=== PATIENT | female | born 1970 | race Caucasian/White ===

== ENCOUNTER → 2018-04-08 10:45 | Outpatient (CLI) | payer BC, SELFPAY ==
--- NOTE | 2018-04-08 10:54 | US_ITS ---
ULTRASOUND THYROID PROCEDURE: Multiple sagittal & transverse ultrasound images of the thyroid. HISTORY: Hypothyroidism difficulty swallowing on thyroid medications one year COMPARISON: ----- FINDINGS: Thyroid Gland appears normal in size and fairly homogeneous throughout. No remarkable nodules or mass. RIGHT LOBE: 3.3 cm length as 1.3 cm wide x 1.2 cm AP . LEFT LOBE: 3.5 cm length as 1.1 cm wide x 1.0 cm AP . ISTHMUS: Normal thickness measuring just over 3 mm no nodule IMPRESSION ----- thyroid gland appears normal in size With no nodules or masses evident
== END ==
PROVIDERS: PCP Nurse Practitioner; Visit Provider Nurse Practitioner
DX: E03.9 Hypothyroidism, unspecified (principal)
CPT/HCPCS: 76536

== ENCOUNTER → 2019-05-29 15:11 | Outpatient (CLI) | payer BC, SELFPAY ==
--- NOTE | 2019-05-29 15:19 | XR_ITS ---
PROCEDURE: XR THORACIC SPINE 3V CLINICAL INDICATION: THORACIC PAIN, COMPARISON: No exams were available for comparison FINDINGS: There is a mild upper thoracic curvature convex left, midthoracic curvature convex right, and mid to lower thoracic curvature convex left. There are degenerative changes in the thoracic spine. There is mild wedging of T5 age indeterminate. IMPRESSION: Degenerative changes with mild S-shaped scoliosis with mild wedging of T5 Dictated by: Aditya Engle MD 05/29/2019 18:45 Electronically signed by Aditya Engle MD in [place] 05/29/2019 18:45
--- NOTE | 2019-05-29 15:19 | XR_ITS ---
PROCEDURE: XR FOOT RT MIN 3V CLINICAL INDICATION: RT FOOT PAIN COMPARISON: None FINDINGS: No fracture or dislocation. No lytic or blastic change. There is normal mineralization. The joint spaces are well-preserved. No significant degenerative/arthritic changes. No erosive changes evident. Other findings:None. IMPRESSION: No acute findings. Dictated by: Aditya Engle MD 05/29/2019 18:43 Electronically signed by Aditya Engle MD in [place] 05/29/2019 18:43
== END ==
PROVIDERS: PCP Family Medicine; Visit Provider Family Medicine
DX: M54.6 Pain in thoracic spine (principal); M79.671 Pain in right foot
CPT/HCPCS: 72072; 73630

== ENCOUNTER → 2019-11-26 16:43 | Outpatient (CLI) | payer BC, SELFPAY ==
--- NOTE | 2019-11-26 16:49 | MM_ITS ---
PROCEDURE: MM DIG SC MAMM IMPLANT BI CAD Digital Breast Tomosynthesis Included CLINICAL INDICATION: SCREENING There is no personal or family history of breast cancer. The patient is currently on her 3rd set of breast implants. COMPARISON: DMSI DIGITAL MAMM-SCREEN IMPLANT from 06/21/2011 DMSI DIG MAMM-SCREEN IMPLANT from 11/06/2013 DMID DIG MAMM-IMPLANT DX from 04/27/2015 TECHNIQUE: Standard CC and MLO images and 3D Tomosynthesis was obtained. R2 CAD reviewed. FINDINGS: There are minimal fibroglandular densities in the [place] breast tissue around the implants, the [place] breast tissue otherwise composed primarily of fat. There is some slight crinkling and/or irregularity of the border of the implants probably due to scarring from previous implant pockets. There is no leakage of either implant. However there is apparent new solitary spherical lesion outer quadrant left breast best seen on the CC view with john images. This measures 6 mm in diameter. This has benign features and may represent a small fibroadenoma but recommend the patient return for ultrasound for additional evaluation. IMPRESSION: Fibrofatty parenchyma with stable intact implants both possible new developing lesion left breast outer quadrant BI-RAD Category: Additional imaging recommended FOLLOW-UP: IMM Immediate Follow-up Recommended (A letter has been sent to the patient regarding results of the study.) Dictated by: Dr. Junior Owens MD 11/27/2019 14:[address] Junior Owens MD in [place] 11/27/2019 14:25
== END ==
PROVIDERS: PCP Family Medicine; Visit Provider Nurse Practitioner
DX: Z12.31 Encounter for screening mammogram for malignant neoplasm of breast (principal); Z98.82 Breast implant status
CPT/HCPCS: 77063; 77067

== ENCOUNTER → 2020-03-08 15:22 | Outpatient (POV) | payer BC, SELFPAY | PROVIDERS: PCP Family Medicine; Visit Provider Physician Assistant | DX: Z00.00 Encounter for general adult medical examination without abnormal findings (principal) ==

== ENCOUNTER 2020-04-09 14:10 | Emergency (ER) | payer BC, SELFPAY ==
[2020-04-09 14:56] VITALS: BP 143/109; PULSE 95; RESP 20; TEMP 37.1; O2SAT 99; BMI 29.0
--- NOTE | 2020-04-09 15:07 | HMH.EDUTC ---
[facility] [place] Disposition Clinical Impression: Contact dermatitis Qualifiers: Contact dermatitis type: unspecified Contact dermatitis trigger: unspecified trigger Qualified Code(s): L25.9 - Unspecified contact dermatitis, unspecified cause Disposition: Home, Self-Care Condition on Discharge: Good Instructions: Contact Dermatitis, DI for Contact Dermatitis Additional Instructions: Try to avoid the offending substance. Start the oral steroids tomorrow, since you had the shot here today. Try the vistiril (hydroxzine) for your itching. It is very similar to benedryl, but it might work better. Don't take the vistiril and benedryl at the same time. Follow up with your regular doctor. GO TO THE ER FOR ANY WORSENING SYMPTOMS OR CONCERNS, ESPECIALLY IF YOU HAVE ANY SHORTNESS OF BREATH OR MOUTH SWELLING. Prescriptions: hydrOXYzine pamoate [Vistaril 25mg capsule] 25 mg PO Q6HP PRN #30 cap PRN Reason: Itching Transmission Status: Received by [id number] methylPREDNISolone [Medrol] 4 mg PO DIRECTED 6 Days #21 tab.[email or web address] Transmission Status: Received by [id number] Referrals: Duke Ramsey MD [Primary Care Provider] - Time of Disposition: 15:17 Medical Decision Making - Medical Records Medical records reviewed: No: I reviewed the patient's medical records. - Rony Inquiry Pt receiving controlled substance: No Vital Signs: 04/09/20 14:56 04/09/20 15:21 Temperature 98.8 F 98.8 F Temperature Source Oral Pulse Rate 95 H Pulse Rate [Right Brachial] 95 H Respiratory Rate 20 20 Blood Pressure 143/109 H Blood Pressure [Right Arm] 143/109 H Blood Pressure Mean [Right Arm] 120 Blood Pressure Source [Right Arm] Automatic Cuff Blood Pressure Position [Right Arm] Sitting 02 Sat by Pulse Oximetry 99 Oxygen Delivery Method Room Air Orders (Tests/Meds): ED MEDICATIONS Discontinued Medications Generic Name Dose Route Start Last Admin Trade Name Freq PRN Reason Stop Dose Admin Methylprednisolone Sodium Succinate 125 mg 04/09/20 15:00 04/09/20 15:05 Solu-Medrol 125mg/2ml Vial IM 04/09/20 15:01 125 mg ONCE ONE Administration [facility] [place] HPI - General Stated complaint: possible reaction Time Seen by Provider: 04/09/20 15:07 Mode of Arrival: Ambulatory Source of Information: Patient Limitations: No Limitations Description of Symptoms (Recalled from Triage Doc. by RN): PATIENT C/O ITCHING AND HIVES TO CHEST, ARMS, AND UPPER BACK THAT SHE BELIEVES IS A REACTION TO HER SUNSCREEN HEENT Symptoms (Recalled from RN notes): No Resp Symptoms (Recalled from RN notes): No Skin Symptoms (Recalled from RN notes): Yes MS Symptoms (Recalled from RN notes): No Functional Status (Recalled from RN notes): WNL - History of Present Illness Provider Complaint: She c/o itching of her skin and rash of her arms, shoulders, upper chest and upper back. She used a new sun screen right before these symptoms began (3 days ago) - Related Data Previous Rx's Medication Instructions Recorded hydrOXYzine pamoate [Vistaril 25mg 25 mg PO Q6HP PRN #30 cap 04/09/20 capsule] methylPREDNISolone [Medrol] 4 mg PO DIRECTED 6 Days #21 04/09/20 tab.ds.pk Allergies Allergy/AdvReac Type Severity Reaction Status Date / Time Sulfa (Sulfonamide Allergy Mild I-HIVES Verified 04/09/20 15:00 Antibiotics) [SULFA (SULFONAMIDE ANTIBIOTICS)] bacitracin Allergy Verified 04/09/20 15:00 [From Neosporin ([id number]-[id number])] neomycin Allergy Verified 04/09/20 15:00 [From Neosporin (ola-nzr-pwdch)] polymyxin B Allergy Verified 04/09/20 15:00 [From Neosporin ([id number])] - Worker's Comp Is this a Worker's Comp case?: No [facility] History - Hepatitis A Screen Drug use history?: No High risk sexual behaviors?: No History of sexually transmitted infection?: No Currently employed?: No Childcare worker?: No Do you have indoor plumbing?: Yes Do you have
[2020-04-09 15:21] VITALS: BP 143/109; PULSE 95; RESP 20; TEMP 37.1; O2SAT 99
== END 2020-04-09 15:26 | disposition home or self-care (01) ==
PROVIDERS: Emergency Provider Nurse Practitioner Family; PCP Family Medicine
DX: L25.9 Unspecified contact dermatitis, unspecified cause (principal); Z88.2 Allergy status to sulfonamides
CPT/HCPCS: 96372; 99201

== ENCOUNTER 2020-05-03 17:54 | Emergency (ER) | payer BC, SELFPAY ==
[2020-05-03 17:54] VITALS: BP 142/104; PULSE 84; RESP 14; TEMP 37; O2SAT 99; BMI 30.1
--- NOTE | 2020-05-03 17:58 | ECG_ITS ---
APPROVED REPORT Exam: Resting ECG HR:85 bpm ECG Measurements Heart Rate 85 AXES WV 122 P 16 QRSd 72 QRS 49 QT 348 T 2 QTc 414 <Conclusion> Normal sinus rhythm Low voltage QRS Nonspecific ST-T wave abnormalities Abnormal ECG Electronically signed by : Scott Valenzuela, 05/04/2020 14:01:21
--- NOTE | 2020-05-03 17:58 | XR_ITS ---
PROCEDURE: XR CHEST 2V CLINICAL HISTORY: CP Chest pain, hypertension COMPARISON: CR CXR1 CHEST-PORTABLE from 04/09/2017 CR XR THORACIC SPINE 3V from 05/29/2019 FINDINGS: The cardiomediastinal silhouette and pulmonary vascularity are within normal limits. The lungs are clear without infiltrates, suspicious nodules, or pleural effusions. COPD changes. There is mild wedging involving T4 vertebral body unchanged. Bilateral breast implants are noted. IMPRESSION: No acute finding. Mild chronic wedging of T4 Dictated b Aditya Engle MD 05/04/2020 06:10 Aditya Engle MD in [place] 05/04/2020 06:10
[2020-05-03 18:06] LABS: Basophils % 0.4 % (0.1-2.0); Eosinophils # 0.1 K/mm3 (0.0-0.4); Eosinophils % 2.1 % (0.1-12.0); Hematocrit 40.2 % (37.0-47.0); Hemoglobin 13.7 g/dL (12.2-16.2); Lymphocytes % 43.8 % (10-50); Mean Corpuscular HGB Conc 34.1 g/dL (31.8-35.4); Mean Corpuscular Hemoglobin 32.4 pg (27.0-31.2); Mean Corpuscular Volume 94.9 fl (81-99); Mean Platelet Volume 7.6 fl (7.4-10.4); Monocytes # 0.2 K/mm3 (0.1-1.0); Monocytes % 3.2 % (1.7-9.3); Neutrophils # 3.4 K/mm3 (1.8-7.8); Neutrophils % 50.4 % (37.0-80.0); Platelet Count 377 K/mm3 (142-424); Red Blood Count 4.24 M/mm3 (4.20-5.40); Red Cell Distribution Width 12.9 % (11.5-17.5); White Blood Count 6.7 K/mm3 (4.8-10.8)
[2020-05-03 18:13] LABS: Chloride 103 mmol/L (98-107); Potassium 4.2 mmoL/L (3.5-5.1); Sodium 139 mmol/L (136-145)
[2020-05-03 18:16] LABS: Blood Urea Nitrogen 16 mg/dl (7-17); Creatinine Clearance Estimated 82 mL/min (50-200); Estimated Glomerular Filt Rate 59 ml/min (>60); GFR (African American) 71 ML/MIN (>60)
[2020-05-03 18:17] LABS: Anion Gap 16.2 mEq/L (5-15); Calcium 10.2 mg/dl (8.4-10.2); Carbon Dioxide 24 mmol/L (22.0-30.0); Glucose 107 mg/dl (74-100)
[2020-05-03 18:32] LABS: Troponin I < 0.01 ng/ml (0.00-0.034)
--- NOTE | 2020-05-03 19:24 | HMH.EDGENADL ---
ED Disposition Clinical Impression: Atypical chest pain, Hypertension Disposition: Home, Self-Care Condition on Discharge: Good Instructions: DI for Atypical Chest Pain Prescriptions: Amlodipine Besylate [Amlodipine 10mg Tab] 10 mg PO DAILY #30 tab Transmission Status: Pending to [id number] Referrals: Duke Ramsey MD [Primary Care Provider] - - Critical Care Critical Care Time: No Attestation: On 05/03/20, the high probability of a clinically significant, sudden or life threatening deterioration of the following system(s) required my full and direct attention, intervention and personal management. The time I documented below is in addition to time spent performing reported procedures but includes the following listed in this critical care notation. Medical Decision Making - Medical Records Medical records reviewed: Yes: I reviewed the patient's medical records. - Rony Inquiry Pt receiving controlled substance: No Vital Signs: 05/03/20 17:54 Temperature 98.6 F Temperature Source Oral Pulse Rate [Right] 84 Respiratory Rate 14 Blood Pressure [Right Arm] 142/104 H Blood Pressure Mean [Right Arm] 116 02 Sat by Pulse Oximetry 99 - Lab Data Lab results reviewed: Yes: I reviewed the patient's lab results. Lab Results 05/03/20 17:55: WBC 6.7, RBC 4.24, Hgb 13.7, Hct 40.2, MCV 94.9, MCH 32.4 H, MCHC 34.1, RDW 12.9, Plt Count 377, MPV 7.6, Neut % (Auto) 50.4, Lymph % (Auto) 43.8, [place] % (Auto) 3.2, Eos % (Auto) 2.1, Baso % (Auto) 0.4, Neut # (Auto) 3.4, Lymph # (Auto) 3.0, [place] # (Auto) 0.2, Eos # (Auto) 0.1, Baso # (Auto) 0.0 05/03/20 17:55: Sodium 139, Potassium 4.2, Chloride 103, Carbon Dioxide 24, Anion Gap 16.2 H, BUN 16, Creatinine 1.00, Estimated Creat Clear 82, Estimated GFR 59, Est GFR ( Amer) 71, Glucose 107 H, Calcium 10.2, Troponin I < 0.01 Result diagrams: 05/03/20 17:55 05/03/20 17:55 Orders (Tests/Meds): ED MEDICATIONS Discontinued Medications Generic Name Dose Route Start Last Admin Trade Name Jose PRN Reason Stop Dose Admin Aspirin 324 mg 05/03/20 17:59 05/03/20 18:02 Aspirin 81mg Chewable Tablet PO 05/03/20 18:00 324 mg ONCE ONE Administration ORDERS Category Date Time Status XR chest 2V Stat Exams 05/03/20 17:58 Taken Troponin I Q3H Lab 05/03/20 21:00 Ordered Troponin I Q3H Lab 05/04/20 00:00 Ordered ECG Request by /Bucky Stat Y 05/03/20 17:58 Ordered - Radiology Data #1 Image(s): Chest Preliminary Findings: Normal/NAD - ECG Data Tracing #1 I reviewed this ECG and interpreted as documented below: Normal Sinus Rhythm: Yes - KAL Score for Non-Stemi Age of Patient: 50-59 years old Heart Rate: 50-69 bpm Systolic Blood Pressure: 140-159 mmHg Serum Creatinine: 0.40-0.79 mg/dl CHF [place] Class: I-No CHF Other Risk Factors: None Non-Stemi Risk Score: 72 Risk Stratification: 1-108 = Low Risk General Adult HPI - General Chief complaint: Chest Pain Stated complaint: chest pain Time Seen by Provider: 05/03/20 19:25 Mode of Arrival: Ambulatory Source of Information: Patient Limitations: No Limitations Description of Symptoms (Recalled from ER Triage Doc. 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 Denies cough, fever, soa, NVD, body aches, chills or contact with anyone with COVID19. 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 Patient states that she had some chest pressure that lasted for about a minute and a half earlier today and she has a slight headache and just feels unusual. She states that she is been out of her blood pressure medication amlodipine for about 8 days now. She takes losartan and amlodipine for hypertension. Presently here in the
[2020-05-03 19:26] VITALS: BP 141/108; PULSE 86; RESP 14; O2SAT 97
[2020-05-03 20:11] VITALS: BP 139/101; PULSE 76; RESP 16; TEMP 36.8; O2SAT 98
== END 2020-05-03 20:17 | disposition home or self-care (01) ==
PROVIDERS: Emergency Provider Family Medicine; PCP Family Medicine
DX: R07.89 Other chest pain (principal); I10 Essential (primary) hypertension; Z88.2 Allergy status to sulfonamides
CPT/HCPCS: 71046; 80048; 84484; 85025; 93005; 96374; 96375; 99283

== ENCOUNTER 2020-05-22 13:53 | Emergency (ER) | payer BC, SELFPAY ==
[2020-05-22 14:01] VITALS: BMI 30.1
--- NOTE | 2020-05-22 14:01 | XR_ITS ---
PROCEDURE: XR HAND RT MIN 3V CLINICAL INDICATION: INJURY Posttraumatic pain COMPARISON: No exams were available for comparison FINDINGS: There is a nondisplaced oblique fracture involving the mid shaft of the proximal phalanx of the 5th digit. No other significant anomalies are evident. The joint spaces are well-preserved. No significant degenerative/arthritic changes. No erosive changes evident. Other findings:None. IMPRESSION: Nondisplaced fracture proximal phalanx 5th digit Dictated by: Aditya Engle MD 05/22/2020 19:07 Aditya Engle MD in [place] 05/22/2020 19:07
[2020-05-22 14:04] VITALS: BP 137/107; PULSE 87; RESP 20; TEMP 36.7; O2SAT 98; BMI 30.1
--- NOTE | 2020-05-22 15:13 | HMH.EDUTC ---
[facility] [place] Clinical Impression: Finger fracture, right Qualifiers: Encounter type: initial encounter Finger: little finger Fracture type: closed Phalanx: proximal Fracture alignment: nondisplaced Qualified Code(s): S62.646A - Nondisplaced fracture of proximal phalanx of right little finger, initial encounter for closed fracture Disposition: Home, Self-Care Condition on Discharge: Good Instructions: DI for Finger Fracture Additional Instructions: Rest the extremity, Elevate the extremity as tolerated while you are resting. Take ibuprofen for pain. Follow up with orthopedics. You need to call their office in the morning. They may not see you tomorrow, but please go ahead and call them to get the appointment. Follow up with your regular doctor. GO TO THE ER FOR ANY WORSENING SYMPTOMS Referrals: Duke Ramsey MD [Primary Care Provider] - Alysia Bliss MD [Physician] - Forms: Work/School Release Time of Disposition: 15:16 Medical Decision Making - Medical Records Medical records reviewed: No: I reviewed the patient's medical records. - Rony Inquiry Pt receiving controlled substance: No Vital Signs: 05/22/20 14:04 05/22/20 15:30 Temperature 98.1 F 98.1 F Temperature Source Oral Pulse Rate 87 Pulse Rate [Left Brachial] 87 Respiratory Rate 20 20 Blood Pressure 137/107 H Blood Pressure [Left Arm] 137/107 H Blood Pressure Mean [Left Arm] 117 Blood Pressure Source [Left Arm] Automatic Cuff Blood Pressure Position [Left Arm] Sitting 02 Sat by Pulse Oximetry 98 Oxygen Delivery Method Room Air - Radiology Data #1 Image(s): Hand Image Reviewed: Yes I reviewed the patient's radiology image, Yes I have reviewed radiologist's interpretation PROCEDURE: XR HAND RT MIN 3V CLINICAL INDICATION: INJURY Posttraumatic pain COMPARISON: No exams were available for comparison FINDINGS: There is a nondisplaced oblique fracture involving the mid shaft of the proximal phalanx of the 5th digit. No other significant anomalies are evident. The joint spaces are well-preserved. No significant degenerative/arthritic changes. No erosive changes evident. Other findings:None. IMPRESSION: Nondisplaced fracture proximal phalanx 5th digit Dictated by: Aditya Engle MD 05/22/2020 19:07 Aditya Engle MD in [place] 05/22/2020 19:07 [facility] [place]PI - General Stated complaint: AO rt hand pinky finger injury Time Seen by Provider: 05/22/20 14:10 Mode of Arrival: Ambulatory Source of Information: Patient Limitations: No Limitations Description of Symptoms (Recalled from Triage Doc. by RN): PATIENT C/O RIGHT PINKY FINGER INJURY AFTER HER DOG HIT IT WHILE JUMPING OFF OF THE BED YESTERDAY. BRUISING AND SWELLING NOTED HEENT Symptoms (Recalled from RN notes): No Resp Symptoms (Recalled from RN notes): No Skin Symptoms (Recalled from RN notes): No MS Symptoms (Recalled from RN notes): Yes Functional Status (Recalled from RN notes): WNL - History of Present Illness Provider Complaint: She c/o right pinky finger pain. She states this started after her dog jumped down off the bed and somehow twisted her finger in the process. This happened yesterday. - Related Data Previous Rx's Medication Instructions Recorded hydrOXYzine pamoate [Vistaril 25mg 25 mg PO Q6HP PRN #30 cap 04/09/20 capsule] methylPREDNISolone [Medrol] 4 mg PO DIRECTED 6 Days #21 04/09/20 tab.ds.pk Amlodipine Besylate [Amlodipine 10 mg PO DAILY #30 tab 05/03/20 10mg Tab] Allergies Allergy/AdvReac Type Severity Reaction Status Date / Time Sulfa (Sulfonamide Allergy Mild I-HIVES Verified 04/09/20 15:00 Antibiotics) [SULFA (SULFONAMIDE ANTIBIOTICS)] bacitracin Allergy Verified 04/09/20 15:00 [From Neosporin ([id number])] neomycin Allergy Verified 04/09/20 15:00 [From Neosporin ([id number]-[id number])] polymyxin B Allergy Verified 04/09/20 15:00 [From Neosporin (n
[2020-05-22 15:30] VITALS: BP 137/107; PULSE 87; RESP 20; TEMP 36.7; O2SAT 98
== END 2020-05-22 15:35 | disposition home or self-care (01) ==
PROVIDERS: Emergency Provider Nurse Practitioner Family; PCP Family Medicine
DX: S62.646A Nondisplaced fracture of proximal phalanx of right little finger, initial encounter for closed fracture (principal); W54.1XXA Struck by dog, initial encounter; Y92.013 Bedroom of single-family (private) house as the place of occurrence of the external cause; Z88.2 Allergy status to sulfonamides
CPT/HCPCS: 73130; 99201

== ENCOUNTER → 2020-06-20 08:35 | Outpatient (CLI) | payer BC, SELFPAY ==
--- NOTE | 2020-06-20 08:41 | XR_ITS ---
PROCEDURE: XR HAND RT MIN 3V CLINICAL INDICATION: rt hand fx Follow-up fracture COMPARISON: CR XR HAND RT MIN 3V from 05/22/2020 FINDINGS: Nondisplaced fracture involves the mid shaft of the proximal phalanx of the 5th finger similar to the previous exam. Fracture line is still visible. The joint spaces are well-preserved. No significant degenerative/arthritic changes. No erosive changes evident. Other findings:None. IMPRESSION: No change nondisplaced fracture proximal phalanx 5th digit Dictated by: Aditya Engle MD 06/20/2020 17:46 Aditya Engle MD in [place] 06/20/2020 17:46
== END ==
PROVIDERS: PCP Family Medicine; Visit Provider Orthopaedic Surgery
DX: S62.646A Nondisplaced fracture of proximal phalanx of right little finger, initial encounter for closed fracture (principal)
CPT/HCPCS: 73130

== ENCOUNTER → 2020-07-04 14:23 | Outpatient (CLI) | payer BC, SELFPAY ==
--- NOTE | 2020-07-04 14:28 | XR_ITS ---
PROCEDURE: XR ANKLE LT MIN 3V CLINICAL INDICATION: ANKLE EDEMA COMPARISON: No exams were available for comparison FINDINGS: No fracture or dislocation. No lytic or blastic change. There is normal mineralization. The joint spaces are well-preserved. No significant degenerative/arthritic changes. No erosive changes evident. Other findings:None. IMPRESSION: No acute findings. Dictated by: Aditya Engle MD 07/04/2020 14:49 Aditya Engle MD in [place] 07/04/2020 14:49
== END ==
PROVIDERS: PCP Family Medicine; Visit Provider Nurse Practitioner
DX: R60.9 Edema, unspecified (principal); M25.572 Pain in left ankle and joints of left foot
CPT/HCPCS: 73610

== ENCOUNTER 2020-07-13 08:00 | Outpatient (RCR) | payer BC, SELFPAY ==
--- NOTE | 2020-06-24 14:43 | HMH.OTEV ---
PHYSICIAN CERTIFICATION: I certify the specified therapy services for Karen Castaneda are required, authorized, and reviewed every 30 days.
== END 2020-07-13 08:05 | disposition home or self-care (01) ==
LOC: OT 08:00
PROVIDERS: PCP Family Medicine; Visit Provider Orthopaedic Surgery
DX: S62.646D Nondisplaced fracture of proximal phalanx of right little finger, subsequent encounter for fracture with routine healing (principal)
CPT/HCPCS: 97110; 97140; 97165

== ENCOUNTER → 2020-07-13 13:44 | Outpatient (CLI) | payer BC, SELFPAY ==
--- NOTE | 2020-07-13 13:51 | XR_ITS ---
PROCEDURE: XR DEXA AXIAL SKELETON CLINICAL HISTORY: ANKLE EDEMA, POST MENOPAUSAL SYNDROME COMPARISON: No exams were available for comparison FINDINGS: The right hip BMD is 0.607 with a T-score of -2.2. The left hip BMD is 0.604 with a T-score of -2.2. The lumbar spine BMD is 0.797 with a T-score of -2.3. IMPRESSION: This patient is considered osteopenic according to the World Health Organization criteria. Bone density is between 10 and 25 percent below young normal. Fracture risk is moderate. Treatment is advised. Based on these results a follow-up exam is recommended in 2 year. Dictated by: Aditya Engle MD 07/16/2020 08:11 Aditya Engle MD in [place] 07/16/2020 08:11
--- NOTE | 2020-07-13 13:52 | MM_ITS ---
PROCEDURE: MM DX IMPLANT LT W/KENNETH Digital Breast Tomosynthesis Included CLINICAL INDICATION: ABN MAMM Small nodular density adjacent to the implant COMPARISON: MG DMSI DIG MAMM-SCREEN IMPLANT from 11/06/2013 MG DMID DIG MAMM-IMPLANT DX from 04/27/2015 MG MM DIG SC MAMM IMPLANT BI CAD from 11/26/2019 US US BREAST LT COMPLETE from 07/13/2020 TECHNIQUE: Standard CC and MLO images and 3D Tomosynthesis was obtained. R2 CAD reviewed. FINDINGS: The small nodular densities again seen abutting the implant best seen on the CC view. It measures 5.3 mm whereas previously was measured at 5.4 mm. It is unchanged in size and overall appearance from the previous exam. Ultrasound performed the same date showed a small slightly hyperechoic solid nodule and this almost surely represents a small fibroadenoma. The remainder the [place] breast tissue appears normal. There is no evidence of extravasation of the implant. IMPRESSION: Stable benign-appearing nodular density likely fibroadenoma, implant intact BI-RAD Category: 2 Benign Finding(s) FOLLOW-UP: 1YR 1 Year Follow-up (A letter has been sent to the patient regarding results of the study.) Dictated by: Dr. Junior Owens MD 07/20/2020 08:20 Dr. Junior Owens MD in [place] 07/20/2020 08:20
--- NOTE | 2020-07-13 14:08 | US_ITS ---
PROCEDURE: US BREAST LT COMPLETE CLINICAL INDICATION: LT BREAST LESION COMPARISON: No exams were available for comparison FINDINGS: There is a small slightly hyperechoic solid nodule 3 o'clock position near the nipple measuring 0.6 by 0.9 cm. On some of the images there is suggestion of a small surrounding border of decreased echogenicity. This either is a small fibroadenoma or possibly a small intramammary node. There are no suspicious findings. There are 3 normal appearing nodes seen in the axilla. IMPRESSION: Benign-appearing lesion, fibroadenoma versus small intramammary node and recommend the patient continue with yearly screening mammography. Dictated by: Dr. Junior Owens MD 07/20/2020 08:24 Dr. Junior Owens MD in [place] 07/20/2020 08:24
== END ==
PROVIDERS: PCP Family Medicine; Visit Provider Nurse Practitioner
DX: R92.8 Other abnormal and inconclusive findings on diagnostic imaging of breast (principal); Z78.0 Asymptomatic menopausal state
CPT/HCPCS: 76641; 77061; 77065; 77080; G0279

== ENCOUNTER → 2020-07-18 08:08 | Outpatient (CLI) | payer BC, SELFPAY ==
--- NOTE | 2020-07-18 08:11 | XR_ITS ---
PROCEDURE: XR HAND RT MIN 3V CLINICAL INDICATION: RT hand; out of brace Follow-up fracture COMPARISON: CR XR HAND RT MIN 3V from 05/22/2020 CR XR HAND RT MIN 3V from 06/20/2020 FINDINGS: There is a nondisplaced fracture involving the proximal phalanx the 5th finger. Fracture line is somewhat less distinct consistent with healing. Fracture is nondisplaced and nonangulated. The joint spaces are well-preserved. No significant degenerative/arthritic changes. No erosive changes evident. Other findings:None. IMPRESSION: Healing nondisplaced fracture proximal phalanx 5th digit Dictated by: Aditya Engle MD 07/18/2020 08:51 Aditya Engle MD in [place] 07/18/2020 08:51
== END ==
PROVIDERS: PCP Family Medicine; Visit Provider Orthopaedic Surgery
DX: S62.609A Fracture of unspecified phalanx of unspecified finger, initial encounter for closed fracture (principal)
CPT/HCPCS: 73130

== ENCOUNTER 2020-08-11 12:52 | Outpatient (RCR) | payer BC, SELFPAY ==
--- NOTE | 2020-08-11 13:40 | HMH.PTOPEV ---
PT Outpatient Evaluation Rehab PT Outpatient Evaluation Start: 08/11/20 13:06 Freq: Status: Active Protocol: Document 08/11/20 13:24 MASHA (Rec: 08/11/20 13:40 [email or web address] [id number]) Electronically Signed By Elvin Knapp, PT 08/11/20 13:24 Outpatient Therapy Subjective History Subjective History Patient is a 50 year old female presenting to outpatient PT with reports of L ankle pain as a result of a L inversion ankle sprain approximatley 6 weeks ago. Patient reports that she had been walking on uneven ground for a prolonged period and then went to a wedding wearing heels when the inury occurred . She spent aproxx 1 month in a boot and has since progressed to corsett ankle brace. Imaging negative for fracture. Comorbidites include hx of HTN, fibromyalgia and hypothyroidism. Chief Complaint Pain,Stiff,Swelling Symptom Type Ache,Sharp Symptoms Relieved By Ice,OTC Meds Symptoms Aggravated By Standing,Physical Activity, Walking Prior Functional Limitations None Current Functional Limitations Housework,Standing,Squatting, Recreation Activity,Walking, Stairs,Balance Symptom Description Intermittent Level of pain today (0-10) 0 Pain scale - at its best (0-10) 0 Pain scale - at its worst (0-10) 2 Ankle/Foot Eval Gait Observation General Gait Pattern Observation Antalgic Gait,Decrease Weight Bear (L) Palpation Tenderness left Ankle/Foot Palpation Findings Tenderness Ankle/Foot Palpation Overall Comment Fibularis mm, ATFL 2/4 ATF TTP positive ROM Ankle/Foot Dorsiflexion w/Knee Extended -3 Active Range Motion (degrees) Ankle/Foot Dorsiflexion w/Knee Extended 0 Passive Range (degrees) Ankle/Foot Plantar Flexion Active Range WNL of Motion (degrees) Ankle/Foot Eversion Active Range of 11 Motion (degrees) Ankle/Foot Eversion Passive Range of 15 Motion (degrees) Ankle/Foot Inversion Active Range of 31 Motion (degrees) Ankle/Foot Inversion Passive Range of 35 Motion (degrees) Ankle/Foot ROM Limitations Soft Tissue Tightness Great Toe ROM Reason
== END 2020-08-11 12:55 | disposition home or self-care (01) ==
LOC: PT 12:52
PROVIDERS: PCP Family Medicine; Visit Provider Podiatrist
DX: S93.402A Sprain of unspecified ligament of left ankle, initial encounter (principal)
CPT/HCPCS: 97163

== ENCOUNTER → 2020-08-23 14:47 | Outpatient (CLI) | payer BC, SELFPAY ==
--- NOTE | 2020-08-23 14:52 | XR_ITS ---
PROCEDURE: XR ANKLE WT BEARING LT MIN 3V CLINICAL INDICATION: pain Posttraumatic pain COMPARISON: CR XR ANKLE LT MIN 3V from 07/04/2020 FINDINGS: There now is an area of sclerosis involving the distal shaft of the fibula consistent with a healing fracture. Fracture line is not visible. No other significant anomalies. IMPRESSION: Healing fracture distal shaft of the fibula Dictated by: Aditya Engle MD 08/23/2020 16:05 Aditya Engle MD in [place] 08/23/2020 16:05
--- NOTE | 2020-08-23 14:52 | XR_ITS ---
PROCEDURE: XR ANKLE WT BEARING RT MIN 3V CLINICAL INDICATION: pain COMPARISON: CR XR ANKLE LT MIN 3V from 07/04/2020 FINDINGS: No fracture or dislocation. No lytic or blastic change. There is normal mineralization. The joint spaces are well-preserved. No significant degenerative/arthritic changes. No erosive changes evident. Other findings:There is a os trigonum as a normal variant. IMPRESSION: No acute findings. Dictated by: Aditya Engle MD 08/23/2020 16:06 Aditya Engle MD in [place] 08/23/2020 16:06
== END ==
PROVIDERS: PCP Family Medicine; Visit Provider Podiatrist
DX: M25.572 Pain in left ankle and joints of left foot (principal); M25.571 Pain in right ankle and joints of right foot
CPT/HCPCS: 73610

== ENCOUNTER → 2020-08-29 12:30 | Outpatient (CLI) | payer BC, SELFPAY ==
--- NOTE | 2020-08-29 12:34 | XR_ITS ---
PROCEDURE: XR HAND RT MIN 3V CLINICAL INDICATION: fracture R small finger proximal phalanx Follow-up 5th finger fracture COMPARISON: CR XR HAND RT MIN 3V from 05/22/2020 CR XR HAND RT MIN 3V from 06/20/2020 CR XR HAND RT MIN 3V from 07/18/2020 FINDINGS: Nondisplaced oblique fracture involves the mid aspect of the proximal phalanx of the 5th digit not significantly changed. Fracture line is still visible. IMPRESSION: No change nondisplaced 5th proximal phalanx fracture Dictated by: Aditya Engle MD 08/29/2020 14:32 Aditya Engle MD in [place] 08/29/2020 14:32
== END ==
PROVIDERS: PCP Family Medicine; Visit Provider Orthopaedic Surgery
DX: S62.646A Nondisplaced fracture of proximal phalanx of right little finger, initial encounter for closed fracture (principal)
CPT/HCPCS: 73130

== ENCOUNTER → 2020-09-07 12:36 | Outpatient (CLI) | payer BC, SELFPAY ==
[2020-09-07 13:05] LABS: Blood Urea Nitrogen 17 mg/dl (7-17); Estimated Glomerular Filt Rate 58 ml/min (>60); GFR (African American) 71 ML/MIN (>60)
--- NOTE | 2020-09-07 13:22 | MR_ITS ---
PROCEDURE: MR ANKLE RT WO/W CON CLINICAL INDICATION: high ankle sprain, ATFL sprain, tibiofibular ligament sprain, is syndesmotic injury, evaluate for right ankle sprain, ATFL tear, deltoid ligament tear is, syndesmosis disruption, peroneal pathology and distal fibular stress fracture and talar osteochondral defect. Pt states she twisted her rt ankle 08/14/2020 and has had pain and edema since. Pt states lateral rt ankle pain. COMPARISON: CR XR ANKLE WT BEARING RT MIN 3V from 08/23/2020 TECHNIQUE: Routine multiplanar multi echo sequences are performed without gadolinium enhancement. FINDINGS: The tibiofibular syndesmosis appears intact. The tibiofibular ligaments appear intact. There is increased T2 signal involving the distal fibula consistent with a bone bruise with a nondisplaced transverse fracture which is just proximal to the tip the lateral malleolus. There is slight increased T2 signal of the ATFL suggesting sprain or partial tear. There does not appear to be a complete tear of the ATFL. The PT FL appears intact. The deltoid ligament appears intact. There is abnormal signal intensity involving the neck of the talus in its mid and inferior aspect extending into the body of the talus anteriorly. There is a linear area of decreased T1 signal extending from the articular surface of the talus at the the talonavicular region centrally posteriorly consistent with a nondisplaced fracture. Numerous small linear areas with a somewhat jagged appearance also involve the junction of the neck and body of the talus extending into the sulcus bella and into the posterior aspect of the anterior subtalar joint.. Small amount of fluid is present over both anterior and posterior to the ankle joint. The Achilles tendon, posterior tibialis, flexor hallucis and flexor digitorum longus tendons and peroneal brevis tendon have an unremarkable appearance. There is some slight increased T2 signal involving the peroneus longus tendon just distal to the distal talus region. The plantar fascia has an unremarkable appearance. The anterior extensor tendons appear unremarkable. There is some edema about the ankle joint laterally. Small amount fluid is present in the flexor hallucis longus tendon sheath distally nonspecific. IMPRESSION: 1. Nondisplaced comminuted fracture of the talus as described above with bone bruise. 2. Nondisplaced transverse fracture and bone bruise of the distal fibula. 3. Partial tear versus strain of the ATFL. 4. Suspected sprain of the distal aspect of the peroneus longus tendon. Dictated by: Aditya Engle MD 09/09/2020 08:59 Aditya Engle MD in [place] 09/09/2020 08:59
== END ==
PROVIDERS: PCP Family Medicine; Visit Provider Podiatrist
DX: S93.401A Sprain of unspecified ligament of right ankle, initial encounter (principal); S99.911A Unspecified injury of right ankle, initial encounter; M25.579 Pain in unspecified ankle and joints of unspecified foot
CPT/HCPCS: 36415; 73723; 82565; 84520; A9576

== ENCOUNTER → 2020-09-12 09:25 | Outpatient (CLI) | payer BC, SELFPAY ==
--- NOTE | 2020-09-12 09:28 | XR_ITS ---
PROCEDURE: XR ANKLE WT BEARING LT MIN 3V CLINICAL INDICATION: pain Left lateral ankle pain COMPARISON: CR XR ANKLE LT MIN 3V from 07/04/2020 CR XR ANKLE WT BEARING LT MIN 3V from 08/23/2020 CR XR ANKLE WT BEARING RT MIN 3V from 08/23/2020 FINDINGS: There is increasing sclerosis with mild callus formation involving the distal shaft of the fibula consistent with healing fracture with good alignment. Otherwise unremarkable. IMPRESSION: Healing nondisplaced fracture distal shaft of the fibula Dictated by: Aditya Engle MD 09/12/2020 10:10 Aditya nEgle MD in [place] 09/12/2020 10:10
== END ==
PROVIDERS: PCP Family Medicine; Visit Provider Podiatrist
DX: M25.572 Pain in left ankle and joints of left foot (principal)
CPT/HCPCS: 73610

== ENCOUNTER → 2020-10-26 14:39 | Outpatient (CLI) | payer BC, SELFPAY ==
--- NOTE | 2020-10-26 14:53 | CT_ITS ---
PROCEDURE: CT ANKLE RT WO CON CLINICAL HISTORY: Evaluate fracture healing. Injury with pain COMPARISON: CR XR ANKLE WT BEARING RT MIN 3V from 08/23/2020 MR MR ANKLE RT WO/W CON from 09/07/2020 CR XR ANKLE WT BEARING LT MIN 3V from 09/12/2020 TECHNIQUE: Axial images obtained with sagittal and coronal reformats. All CT scans at the facility use one or more dose reduction, viz: automated exposure control, ma/kV adjustment per patient size (including targeted exams where dose is matched to indication, i.e. head), or iterative reconstruction technique. FINDINGS: There is normal alignment. No acute fracture or dislocation is evident. Minimal cortical thickening is noted involving the distal shaft of the fibula consistent with an area of healed fracture. There is mild degree diffuse osteopenia. Previous MRI of 09/07/2020 demonstrated a bone bruise of the talus with fracture. There is focal osteopenia involving the distal aspect of the talus medially in the sub cortical region. There is prominent coarse trabeculation in the neck of the talus. There is a questionable nondisplaced fracture in the neck of the talus best detected on image 21 series 602. This however is not confirmed on the axial image and may only represent a nutrient foramen. No other significant anomalies are evident. IMPRESSION: 1. Healed fracture of the distal shaft of the fibula. 2. Vertical lucency through the neck of the talus probably related to a nutrient foramen. There is diffuse osteopenia with prominent trabeculation of the talus with no definite fracture apparent. Previously noted comminuted fracture of the talus seen on the MRI is not apparent on the CT scan and is presumed healed 3. Focal sub cortical osteopenia along the medial and distal aspect of the talus Dictated by: Aditya Engle MD 11/02/2020 09:32 Aditya Engle MD in [place] 11/02/2020 09:32
== END ==
PROVIDERS: PCP Family Medicine; Visit Provider Podiatrist
DX: S92.114A Nondisplaced fracture of neck of right talus, initial encounter for closed fracture (principal); S82.832A Other fracture of upper and lower end of left fibula, initial encounter for closed fracture
CPT/HCPCS: 73700

== ENCOUNTER → 2020-11-03 10:14 | Outpatient (CLI) | payer BC, SELFPAY ==
--- NOTE | 2020-11-03 10:18 | XR_ITS ---
PROCEDURE: XR ANKLE WT BEARING LT MIN 3V CLINICAL INDICATION: PAIN COMPARISON: CR XR ANKLE LT MIN 3V from 07/04/2020 CR XR ANKLE WT BEARING LT MIN 3V from 08/23/2020 CR XR ANKLE WT BEARING RT MIN 3V from 08/23/2020 CR XR ANKLE WT BEARING LT MIN 3V from 09/12/2020 FINDINGS: Cortical thickening with sclerosis involves the distal shaft of the fibula on the left consistent with healing fracture not significantly changed. No other significant anomalies are evident. IMPRESSION: Healing fracture of the distal fibula Dictated by: Aditya Engle MD 11/03/2020 11:21 Aditya Engle MD in [place] 11/03/2020 11:21
== END ==
PROVIDERS: PCP Family Medicine; Visit Provider Podiatrist
DX: M25.579 Pain in unspecified ankle and joints of unspecified foot (principal); S82.832A Other fracture of upper and lower end of left fibula, initial encounter for closed fracture
CPT/HCPCS: 73610

== ENCOUNTER → 2021-01-12 08:49 | Outpatient (CLI) | payer BC, SELFPAY ==
--- NOTE | 2021-01-12 08:53 | XR_ITS ---
PROCEDURE: XR FOOT WT BEARING LT 3V CLINICAL INDICATION: pain COMPARISON: CR FTL3 FOOT-LT-3 VIEWS from 07/12/2016 CR FTL3 FOOT-LT-3 VIEWS from 08/24/2016 CR FTL3 FOOT-LT-3 VIEWS from 09/13/2016 CR XR FOOT RT MIN 3V from 05/29/2019 FINDINGS: No fracture or dislocation. No lytic or blastic change. There is normal mineralization. The joint spaces are well-preserved. No significant degenerative/arthritic changes. No erosive changes evident. Other findings:Mild pes planus IMPRESSION: Mild pes planus otherwise negative Dictated by: Aditya Engle MD 01/12/2021 14:40 Aditya Engle MD in [place] 01/12/2021 14:40
== END ==
PROVIDERS: PCP Family Medicine; Visit Provider Podiatrist
DX: M79.673 Pain in unspecified foot (principal)
CPT/HCPCS: 73630

== ENCOUNTER → 2021-01-23 13:48 | Outpatient (CLI) | payer BC, SELFPAY ==
--- NOTE | 2021-01-23 13:51 | CT_ITS ---
PROCEDURE: CT FOOT LT WO CON CLINICAL HISTORY: stress fracture Left foot Pain on top of foot COMPARISON: CR XR FOOT WT BEARING LT 3V from 01/12/2021 TECHNIQUE: Axial images obtained with sagittal and coronal reformats. All CT scans at the facility use one or more dose reduction, viz: automated exposure control, ma/kV adjustment per patient size (including targeted exams where dose is matched to indication, i.e. head), or iterative reconstruction technique. FINDINGS: No fracture or dislocation. No lytic or blastic change. No abnormal cortical thickening or periosteal reaction that would indicate a stress fracture. Unremarkable soft tissues IMPRESSION: Negative CT of the left foot Dictated by: Aditya Engle MD 01/24/2021 09:14 Aditya Engle MD in [place] 01/24/2021 09:14
== END ==
PROVIDERS: PCP Family Medicine; Visit Provider Podiatrist
DX: M84.375A Stress fracture, left foot, initial encounter for fracture (principal)
CPT/HCPCS: 73700

== ENCOUNTER → 2021-01-31 11:40 | Outpatient (CLI) | payer BC, SELFPAY ==
[2021-01-31 12:17] LABS: Basophils % 0.4 % (0.1-2.0); Eosinophils # 0.2 K/mm3 (0.0-0.4); Eosinophils % 1.8 % (0.1-12.0); Hematocrit 39.6 % (37.0-47.0); Hemoglobin 13.3 g/dL (12.2-16.2); Lymphocytes # 3.5 K/mm3 (0.7-4.5); Lymphocytes % 38.9 % (10-50); Mean Corpuscular HGB Conc 33.6 g/dL (31.8-35.4); Mean Corpuscular Hemoglobin 30.8 pg (27.0-31.2); Mean Corpuscular Volume 91.5 fl (81-99); Mean Platelet Volume 7.4 fl (7.4-10.4); Monocytes # 0.3 K/mm3 (0.1-1.0); Monocytes % 3.7 % (1.7-9.3); Neutrophils % 55.1 % (37.0-80.0); Platelet Count 336 K/mm3 (142-424); Red Blood Count 4.33 M/mm3 (4.20-5.40); White Blood Count 9.1 K/mm3 (4.8-10.8)
[2021-01-31 12:40] LABS: Alanine Aminotransferase 48 U/L (12-78); Albumin Level 4.9 g/dl (3.5-5.0); Albumin/Globulin Ratio 1.8 (1.1-1.8); Alkaline Phosphatase 107 U/L (38-126); Anion Gap 12.6 mEq/L (5-15); Aspartate Amino Transferase 46 U/L (14-36); Bilirubin,Total 0.3 mg/dl (0.2-1.3); Blood Urea Nitrogen 21 mg/dl (7-17); Carbon Dioxide 26 mmol/L (22.0-30.0); Chloride 103 mmol/L (98-107); Estimated Glomerular Filt Rate 58 ml/min (>60); GFR (African American) 71 ML/MIN (>60); Globulin 2.7 g/dL (1.3-3.2); Glucose 108 mg/dl (74-100); Potassium 4.6 mmoL/L (3.5-5.1); Sodium 137 mmol/L (136-145); Total Protein,Serum 7.6 g/dl (6.3-8.2); Uric Acid 6.1 mg/dl (2.5-6.2)
[2021-01-31 12:51] LABS: Erythrocyte Sedimentation Rate 20 mm/hr (0-30)
[2021-02-01 14:20] LABS: RA Latex Turbid. <10.0 IU/mL (0.0-13.9)
[2021-02-02 20:56] LABS: Antinuclear Antibodies, IFA Positive (.)
[2021-02-18 17:01] LABS: Nicotine 6.8
== END ==
PROVIDERS: Visit Provider Podiatrist
DX: M25.572 Pain in left ankle and joints of left foot (principal); M79.672 Pain in left foot; Z68.30 Body mass index [BMI] 30.0-30.9, adult
CPT/HCPCS: 36415; 80053; 80323; 82306; 84550; 85025; 85651; 86038; 86431

== ENCOUNTER 2021-02-07 10:30 | Outpatient (RCR) | payer BC, SELFPAY ==
--- NOTE | 2020-11-09 16:04 | HMH.PTOPEV ---
PT Outpatient Evaluation Rehab PT Outpatient Evaluation Start: 11/09/20 15:14 Freq: Status: Active Protocol: Document 11/09/20 15:53 GAMALIEL (Rec: 11/09/20 16:03 GAMALIEL [id number]) Electronically Signed By Tiburcio Crabtree, PT 11/09/20 15:53 Outpatient Therapy Subjective History Subjective History Pt presents s/p R talus fx, distal tib fx, ATF lig insult, peroneal lnsult from fall on 08/14/20. Pt reports lingering R ankle pain, stiffness, weakness. Pt reports recent injection and transition from walking boot to shoes has increased soreness. Chief Complaint Pain,Stiff,Weakness Symptom Type Ache,Dull Symptoms Relieved By Rest/Positioning,Ice Symptoms Aggravated By Standing,Walking Prior Functional Limitations Standing,Walking Current Functional Limitations Standing,Walking,Balance Symptom Description Constant but Variable Level of pain today (0-10) 5 Pain scale - at its best (0-10) 4 Pain scale - at its worst (0-10) 8 Ankle/Foot Eval Gait Observation General Gait Pattern Observation Antalgic Gait Palpation Tenderness right Ankle/Foot Palpation Findings Tenderness Ankle/Foot Palpation Overall Comment 2-3/4 ATF TTP positive ROM Ankle/Foot Dorsiflexion w/Knee Extended 0-5 Active Range Motion (degrees) Ankle/Foot Plantar Flexion Active Range 0-50 of Motion (degrees) Ankle/Foot Eversion Active Range of 0-21 Motion (degrees) Ankle/Foot Inversion Active Range of 0-28 Motion (degrees) MMT Ankle Dorsiflexion Strength Grade 4 Good Ankle Plantarflexion Strength Grade 4- Good- Foot Eversion Strength Grade 3+ Fair+ Foot Inversion Strength Grade 4- Good- Outpatient Therapy Assessment Impairments Problems/Impairmments Palpation Tenderness,Impaired Range of Motion,Impaired Strength,Impaired Gait Pattern ,Impaired Walking,Impaired Standing,Impaired Stair Climbing,Impaired Work Activities,Subjective C/O Pain ,Impaired Self Care/Self Management Prognosis Rehab Potential Good Clinical Impression Consistent with Diagnosis Yes Short Term Goals Number of Weeks 4 Decreased Palpation Tenderness Yes: 1-2/4 Increase Range of Motion Yes: 75% of WFL Increase Strength Yes: 4/5 Increase Ability to
--- NOTE | 2020-12-08 10:15 | HMH.RHREAS ---
Rehab Reassessment Rehab OP Re-assessment Start: 12/08/20 08:40 Freq: Status: Active Protocol: Document 12/08/20 08:40 GAMALIEL (Rec: 12/08/20 10:15 GAMALIEL [id number]) Electronically Signed By Tiburcio Crabtree, PT 12/08/20 08:40 Rehab Re-assessment Subjective Subjective Pt reports 1-2/10 R ankle pain on VAS, and feels 50% better overall since I eval Objective Objective Notes AROM: R ANKLE DF 0-10, PF 0-55 , INV 0-30, EVR 0-25 MMT: R ANKLE DF 4+/5, PF 4/5, INV 4/5, EVR 4/5 TTP: R ANKLE ATF 1-2/4, PERONEAL 1-2/4 GAIT: WFL ON LEVEL TERRAIN Assessment Progress Assessment Progressing as Expected Assessment Notes IMPROVED STRENGTH, ROM, AND TTP Patient goals met STG'S 02/27 LTG'S 11/02 Goals Not Met STG'S 09/29, LTG'S 05/02 Plan Plan PT TO CONT. W/SKILLED P.T. TO MAKE FURTHER IMPROVEMENTS IN ROM, STRENGTH, TTP, AND GAIT TO ALLOW FOR OPTIMAL FUNCTION Frequency of Therapy 2-3X/WK Duration of therapy 4-6 WKS Time and Billing Re-Eval Time 15 Re-Eval Billing Units 1 PHYSICIAN CERTIFICATION: I certify the specified therapy services for Karen Castaenda are required, authorized, and reviewed every 30 days.
--- NOTE | 2021-01-05 11:05 | HMH.RHREAS ---
Rehab Reassessment Rehab OP Re-assessment Start: 12/08/20 08:40 Freq: Status: Active Protocol: Document 01/05/21 10:59 GAMALIEL (Rec: 01/05/21 11:04 GAMALIEL [id number]) Electronically Signed By Tiburcio Crabtree, PT 01/05/21 10:59 Rehab Re-assessment Subjective Subjective Pt reports 0-1/10 R ankle pain on VAS w/activity, and feels 100% better overall since I eval, 'I feel like I'm ready to go back to work'. Objective Objective Notes AROM: R ANKLE DF 0-12, PF 0-60 , INV 0-45, EVR 0-30 MMT: R ANKLE DF 5/5, PF 5/5, INV 4+-5/5, EVR 4+-5/5 TTP: R ANKLE ATF 0/4, PERONEAL 0-1/4 GAIT: WFL ON LEVEL AND UNLEVEL TERRAIN Assessment Progress Assessment Progressing as Expected Assessment Notes IMPROVED STRENGTH, ROM, AND TTP Patient goals met STG'S 03/29 LTG'S 06/02 Goals Not Met LTG'S 10/02-RETURN TO WORK WFL Plan Plan PT TO CONT. W/SKILLED P.T. TO MAKE FURTHER IMPROVEMENTS IN ROM, STRENGTH, TTP, AND GAIT TO ALLOW FOR OPTIMAL FUNCTION Frequency of Therapy 1-2X/WK Duration of therapy 1-2WKS Time and Billing Re-Eval Time 15 Re-Eval Billing Units 1 PHYSICIAN CERTIFICATION: I certify the specified therapy services for Karen Castaneda are required, authorized, and reviewed every 30 days.
== END 2021-02-07 10:35 | disposition home or self-care (01) ==
LOC: PT 10:30
PROVIDERS: PCP Family Medicine; Visit Provider Podiatrist
DX: S93.491D Sprain of other ligament of right ankle, subsequent encounter (principal); S99.911D Unspecified injury of right ankle, subsequent encounter; S92.124 Nondisplaced fracture of body of right talus; S82.831D Other fracture of upper and lower end of right fibula, subsequent encounter for closed fracture with routine healing
CPT/HCPCS: 97010; 97014; 97016; 97110; 97112; 97163; 97164; G0283

== ENCOUNTER 2021-03-29 10:16 | Emergency (ER) | payer BC, SELFPAY ==
--- NOTE | 2021-03-29 10:18 | XR_ITS ---
PROCEDURE: XR SHOULDER RT MIN 2V CLINICAL INDICATION: PAIN COMPARISON: CR XR CHEST 2V from 05/03/2020 FINDINGS: No fracture or dislocation. No lytic or blastic change. There is normal mineralization. There are mild osteoarthritic changes of the glenohumeral joint with slight decrease in the joint space and minimal osteosclerosis along the inferior glenoid. The AC joint has an unremarkable appearance. No subacromial stenosis. Other findings:None. IMPRESSION: Minimal osteoarthritic change right glenohumeral joint Dictated by: Aditya Engle MD 03/29/2021 10:44 Aditya Engle MD in [place] 03/29/2021 10:44
[2021-03-29 10:40] VITALS: BP 137/89; PULSE 78; RESP 18; TEMP 37; O2SAT 98; BMI 28.0
--- NOTE | 2021-03-29 11:18 | HMH.EDUTC ---
[facility] [place] Clinical [place]: Fall Qualifiers: Encounter type: initial encounter Qualified Code(s): W19.XXXA - Unspecified fall, initial encounter Right shoulder pain Qualifiers: Chronicity: acute Qualified Code(s): M25.511 - Pain in right shoulder Disposition: Home, Self-Care Condition on Discharge: Good Additional Instructions: Rest the extremity. Take ibuprofen for pain. I sent in a prescription to your pharmacy. Follow up with Dr. Simmons (orthopedics). I put in a referral but you need to call his office and schedule an appointment. Follow up with your regular doctor. GO TO THE ER FOR ANY WORSENING SYMPTOMS Prescriptions: Ibuprofen [Ibuprofen 800mg Tablet] 800 mg PO Q8HP PRN #30 tab PRN Reason: Moderate Pain Transmission Status: Received by [id number] [place] [facility] Cyclobenzaprine HCl [Cyclobenzaprine 10mg Tab] 10 mg PO BIDP PRN #20 tab PRN Reason: Muscle Spasm Transmission Status: Received by [id number] - [facility] Referrals: Duke Ramsey MD [Primary Care Provider] - Marin Simmons MD [Staff Physician] - Forms: Work/School Release Time of Disposition: 11:27 Medical Decision Making - Medical Records Medical records reviewed: No: I reviewed the patient's medical records. - Rony Inquiry Pt receiving controlled substance: No Vital Signs: 03/29/21 10:40 03/29/21 11:40 Temperature 98.6 F 98.6 F Temperature Source Temporal Artery Scan Oral Pulse Rate 78 Pulse Rate [Right Radial] 78 Respiratory Rate 18 18 Blood Pressure 137/89 Blood Pressure [Right Arm] 137/89 Blood Pressure Mean [Right Arm] 105 Blood Pressure Source Automatic Cuff Blood Pressure Source [Right Arm] Automatic Cuff Blood Pressure Position Sitting Blood Pressure Position [Right Arm] Sitting 02 Sat by Pulse Oximetry 98 Oxygen Delivery Method Room Air Room Air - Radiology Data #1 Image(s): Shoulder Image Reviewed: Yes I reviewed the patient's radiology image, Yes I have reviewed radiologist's interpretation Preliminary Findings: No Fracture Seen PROCEDURE: XR SHOULDER RT MIN 2V CLINICAL INDICATION: PAIN COMPARISON: CR XR CHEST 2V from 05/03/2020 FINDINGS: No fracture or dislocation. No lytic or blastic change. There is normal mineralization. There are mild osteoarthritic changes of the glenohumeral joint with slight decrease in the joint space and minimal osteosclerosis along the inferior glenoid. The AC joint has an unremarkable appearance. No subacromial stenosis. Other findings:None. IMPRESSION: Minimal osteoarthritic change right glenohumeral joint Dictated by: Aditya Engle MD 03/29/2021 10:44 Aditya Engle MD in [place] 03/29/2021 10:44 [facility] [place] - General Stated complaint: a/o fell injured right shoulder Time Seen by Provider: 03/29/21 10:45 Mode of Arrival: Ambulatory Source of Information: Patient Description of Symptoms (Recalled from Triage Doc. by RN): right shoulder pain HEENT Symptoms (Recalled from RN notes): No Resp Symptoms (Recalled from RN notes): No Skin Symptoms (Recalled from RN notes): No MS Symptoms (Recalled from RN notes): No Functional Status (Recalled from RN notes): . - History of Present Illness Provider Complaint: She states that she fell yesterday and came down on her right side. She has had right shoulder pain since then. She states that when she fell she came down with her right arm over her head in a funny position. Since then it hurts her to move the shoulder. She states that raising it over her head makes it hurt much worse. - Related Data Home Medications Medication Instructions Recorded Confirmed citalopram 10 mg tablet 10 mg PO tab 06/02/20 02/14/21 levothyroxine 100 mcg tablet 100 mcg PO tab 06/02/20 02/14/21 losartan 100 mg tablet 100 mg PO tab 06/02/20 02/14/21 metaxalone 800 mg tablet 800 mg PO tab 06/02/20 02/14/21 cyclobenzaprine 10 mg tablet 10 mg PO HS 07/12/20 02/14/21 Pre
[2021-03-29 11:40] VITALS: BP 137/89; PULSE 78; RESP 18; TEMP 37; O2SAT 98
== END 2021-03-29 11:39 | disposition home or self-care (01) ==
PROVIDERS: Emergency Provider Nurse Practitioner Family; PCP Family Medicine
DX: M25.511 Pain in right shoulder (principal); I10 Essential (primary) hypertension; F41.9 Anxiety disorder, unspecified; Z88.2 Allergy status to sulfonamides; Z79.899 Other long term (current) drug therapy
CPT/HCPCS: 73030; 99202; G0463

== ENCOUNTER → 2021-04-18 07:49 | Outpatient (CLI) | payer BC, SELFPAY ==
--- NOTE | 2021-04-18 07:51 | MR_ITS ---
PROCEDURE INFORMATION: Exam: MR Right Upper Extremity Joint Without Contrast; Shoulder Exam date and time: 04/18/2021 7:51 AM Age: 50 years old Clinical indication: Pain; Right; Patient HX: RT shoulder injury TECHNIQUE: Imaging protocol: MR of the Right upper extremity without contrast. Exam focused on the shoulder. COMPARISON: CR XR SHOULDER RT MIN 2V 03/29/2021 10:14 AM FINDINGS: Bones and cartilage: An impaction fracture involving the posterolateral humeral head is consistent with a Hill-Sachs lesion from prior anterior shoulder dislocation. The Hill-Sachs fracture site has somewhat linear branching edema that extends through the humeral head into the humeral neck suggesting an additional incomplete fracture. There is a 7 mm round focus of fluid and fat in the humeral neck that is presumed related to the traumatic injury (series 4/image 11). There is a fracture of the anterior-inferior glenoid. The glenoid fracture is estimated to measure 1.9 x 0.7 cm with a 5 mm displacement (series 6/image 16), but the fracture would be best assessed with CT if this would alter clinical management. The undersurface of the acromion is flat, consistent with a type I acromion. Joint spaces: A moderate effusion involves the glenohumeral joint. No significant degenerative change involves the acromioclavicular joint. Glenoid labrum: The anterior-inferior glenoid fracture is associated with detachment of the anterior-inferior labrum (bony Bankart lesion). Bursae: A moderate amount of fluid is present in the subacromial-subdeltoid bursa. Supraspinatus tendon: Low-grade partial-thickness tearing involves the bursal surface of the supraspinatus tendon. Severe tendinosis involves the remainder of the supraspinatus tendon. Infraspinatus tendon: Severe tendinosis involves the infraspinatus tendon. Subscapularis tendon: Moderate tendinosis involves the subscapularis tendon. Teres minor tendon: No tear or significant tendinosis involves the teres minor tendon. Tendon of biceps brachii: Severe tendinosis involves the intra-articular portion of the long head of the biceps tendon. Glenohumeral ligaments: There is a probable tear involving the posterior band of the inferior glenohumeral ligament where the ligament is poorly defined and there is prominent soft tissue edema. Muscles: The rotator cuff musculature demonstrates no significant edema or atrophy. There is mild edema involving the deltoid muscle. Soft tissues: Moderate soft tissue edema surrounds the fractured glenoid. IMPRESSION: 1. Fracture of the anterior-inferior glenoid with associated labral detachment (bony Bankart lesion). CT would best delineate the size and displacement of the fracture. 2. Hill-Sachs impaction fracture involving the posterolateral humeral head with incomplete fracture lines extending through the humeral head into the humeral neck. 3. Probable tear involving the posterior band of the inferior glenohumeral ligament. 4. Low-grade partial-thickness tearing of the supraspinatus tendon bursal surface, superimposed on severe tendinosis. 5. Severe tendinosis of the infraspinatus tendon and long head of the biceps tendon. 6. Moderate subacromial-subdeltoid bursal fluid.
== END ==
PROVIDERS: PCP Family Medicine; Visit Provider Orthopaedic Surgery
DX: M25.511 Pain in right shoulder (principal); W19.XXXA Unspecified fall, initial encounter
CPT/HCPCS: 73221

== ENCOUNTER → 2021-04-24 07:13 | Outpatient (CLI) | payer BC, SELFPAY ==
--- NOTE | 2021-04-24 07:27 | CT_ITS ---
PROCEDURE: CT SHOULDER RT WO CON CLINICAL HISTORY: fracture evaluation Pain from falling Fx seen on MRI COMPARISON: MR MR SHOULDER RT WO CON from 04/18/2021 TECHNIQUE: Axial images obtained with sagittal and coronal reformats. All CT scans at the facility use one or more dose reduction, viz: automated exposure control, ma/kV adjustment per patient size (including targeted exams where dose is matched to indication, i.e. head), or iterative reconstruction technique. FINDINGS: There is minimal indentation upon the posterior lateral aspect of the humeral head consistent with a Hill-Sachs impaction as seen on the previous MRI. Oblique fracture is noted through the anterior inferior glenoid labrum. The fracture fragment measures 14 mm cephalad caudad, 17 mm transverse, and 12 mm AP. There is minimal medial displacement of the fracture fragment by proximally 2 mm. There is a small shoulder joint effusion IMPRESSION: 1. Minimally displaced fracture involves the anterior inferior glenoid labrum as described above. 2. Minimal impaction injury of the humeral head posterior laterally/Hill-Sachs impaction Dictated by: Aditya Engle MD 04/25/2021 11:17 Aditya Engle MD in [place] 04/25/2021 11:17
== END ==
PROVIDERS: PCP Family Medicine; Visit Provider Orthopaedic Surgery
DX: M25.511 Pain in right shoulder (principal)
CPT/HCPCS: 73200

== ENCOUNTER → 2021-06-06 13:51 | Outpatient (POV) | payer BC, SELFPAY | PROVIDERS: Visit Provider Dermatology | DX: Z00.00 Encounter for general adult medical examination without abnormal findings (principal) ==

== ENCOUNTER → 2021-07-05 09:41 | Outpatient (CLI) | payer BC, SELFPAY ==
--- NOTE | 2021-07-05 09:47 | XR_ITS ---
PROCEDURE: XR SHOULDER RT MIN 2V CLINICAL INDICATION: right shoulder Pain COMPARISON: CR XR SHOULDER RT MIN 2V from 03/29/2021 FINDINGS: No fracture or dislocation. No lytic or blastic change. There is normal mineralization. The joint spaces are well-preserved. No significant degenerative/arthritic changes. No erosive changes evident. Other findings:None. IMPRESSION: No acute findings. Dictated by: Aditya Engle MD 07/05/2021 17:54 Aditya Engle MD in [facility] 07/05/2021 17:54
== END ==
PROVIDERS: PCP Family Medicine; Visit Provider Orthopaedic Surgery
DX: M25.511 Pain in right shoulder (principal)
CPT/HCPCS: 73030

== ENCOUNTER → 2021-07-11 09:56 | Outpatient (CLI) | payer BC, SELFPAY ==
--- NOTE | 2021-07-11 09:59 | CT_ITS ---
PROCEDURE: CT SHOULDER RT WO CON CLINICAL HISTORY: evaluate for non union fracture COMPARISON: MR MR SHOULDER RT WO CON from 04/18/[address] SHOULDER RT WO CON from 04/24/2021 CR XR SHOULDER RT MIN 2V from 07/05/2021 TECHNIQUE: Axial images obtained with sagittal and coronal reformats. All CT scans at the facility use one or more dose reduction, viz: automated exposure control, ma/kV adjustment per patient size (including targeted exams where dose is matched to indication, i.e. head), or iterative reconstruction technique. FINDINGS: A minimally displaced fractures once again noted involving the inferior anterior aspect of the glenoid. The fracture line does appear less prominent on the coronal and sagittal reformatted images. Minor impaction injury of the humeral head/Hill-Sachs lesion has shown slight improvement.. IMPRESSION: Healing fracture involves the anterior inferior aspect of the glenoid bony labrum. This is only minimally displaced. Hill-Sachs injury has shown some improvement. Dictated by: Aditya Engle MD 07/11/2021 14:14 Aditya Engle MD in [facility] 07/11/2021 14:14
== END ==
PROVIDERS: PCP Family Medicine; Visit Provider Orthopaedic Surgery
DX: M25.511 Pain in right shoulder (principal)
CPT/HCPCS: 73200

== ENCOUNTER → 2021-07-21 10:52 | Outpatient (CLI) | payer BC, SELFPAY ==
--- NOTE | 2021-07-21 10:52 | MM_ITS ---
PROCEDURE INFORMATION: Exam: MG Bilateral Screening 3D Mammography Exam date and time: 07/21/2021 10:52 AM Age: 51 years old Clinical indication: Encounter for screening mammogram for malignant neoplasm of breast TECHNIQUE: Imaging protocol: Bilateral screening tomosynthesis and 2D mammography including computer-aided detection (CAD) when performed. COMPARISON: 1. MG MM DX IMPLANT LT W/KENNETH 07/13/2020 2:25 PM 2. MG MM DIG SC MAMM IMPLANT BI CAD 11/26/2019 4:52 PM FINDINGS: MAMMOGRAPHY: Breast composition: The breast tissue is composed of scattered areas of fibroglandular density. Mass: None. Architectural distortion: None. Calcifications: Extensive capsular calcifications are noted bilaterally. Asymmetric density: None. Skin thickening: None. Axillary adenopathy: None. Implants: Prepectoral silicone breast implants are present. IMPRESSION: No mammographic evidence of malignancy. Annual screening is recommended unless otherwise clinically indicated. ASSESSMENT: BI-RADS Category 2: Benign
== END ==
PROVIDERS: PCP Family Medicine; Visit Provider Obstetrics & Gynecology
DX: Z12.31 Encounter for screening mammogram for malignant neoplasm of breast (principal)
CPT/HCPCS: 77063; 77067

== ENCOUNTER 2021-08-25 11:00 | Outpatient (RCR) | payer BC, SELFPAY ==
--- NOTE | 2021-07-27 14:47 | HMH.OTOPEV ---
OT Inpatient Evaluation Rehab OT Outpatient Eval Start: 05/25/21 12:10 Freq: Status: Active Protocol: Document 05/25/21 12:12 ALLANLISA (Rec: 05/25/21 12:20 VIRGIL [id number]) Electronically Signed By Bridget Price, OT 05/25/21 12:12 Outpatient Therapy Subjective History Subjective History 51 year old female referred to skilled OP OT services after being 9 weeks out from R shoulder injury caused by being knocked over by her dogs at home. Results indicated: X -ray on 03/29/21- Minimal osteoarthritic change right glenohumeral joint. MRI on - 1. Fracture of the anterior-inferior glenoid with associated labral detachment (bony Bankart lesion). CT would best delineate the size and displacement of the fracture. 2. Hill-Sachs impaction fracture involving the posterolateral humeral head with incomplete fracture lines extending through the humeral head into the humeral neck. 3. Probable tear involving the posterior band of the inferior glenohumeral ligament. 4. Low-grade partial-thickness tearing of the supraspinatus tendon bursal surface, superimposed on severe tendinosis. 5. Severe tendinosis of the infraspinatus tendon and long head of the biceps tendon. 6. Moderate subacromial- subdeltoid bursal fluid. CT scan on 04/24/21 1. Minimally displaced fracture involves the anterior inferior glenoid labrum as described above. 2. Minimal impaction injury of the humeral head posterior laterally/Hill-S
== END 2021-08-25 11:05 | disposition home or self-care (01) ==
LOC: OT 11:00
PROVIDERS: PCP Family Medicine; Visit Provider Orthopaedic Surgery
DX: M25.511 Pain in right shoulder (principal); T07.XXXA Unspecified multiple injuries, initial encounter; W19.XXXA Unspecified fall, initial encounter; S43.431D Superior glenoid labrum lesion of right shoulder, subsequent encounter
CPT/HCPCS: 97014; 97035; 97110; 97140; 97164; 97165; 97530; G0283

== ENCOUNTER → 2021-08-30 10:18 | Outpatient (CLI) | payer BC, SELFPAY ==
--- NOTE | 2021-08-30 10:27 | XR_ITS ---
PROCEDURE: XR SHOULDER RT MIN 2V CLINICAL INDICATION: right shoulder pain COMPARISON: CR XR SHOULDER RT MIN 2V from 03/29/2021 CR XR SHOULDER RT MIN 2V from 07/05/[address] SHOULDER RT WO CON from 07/11/2021 FINDINGS: Minimally offset fracture involves the mid aspect of the anterior rim of the glenoid. There is normal mineralization. There is mild subacromial stenosis. Minimal osteoarthritic change of the glenohumeral joint. Other findings:None. IMPRESSION: Subacromial stenosis with no significant change in the anterior glenoid rim fracture Dictated by: Aditya Engle MD 08/30/2021 15:58 Aditya Engle MD in OV 08/30/2021 15:58
== END ==
PROVIDERS: PCP Family Medicine; Visit Provider Orthopaedic Surgery
DX: S42.141D Displaced fracture of glenoid cavity of scapula, right shoulder, subsequent encounter for fracture with routine healing (principal)
CPT/HCPCS: 73030

== ENCOUNTER → 2022-03-05 14:14 | Outpatient (CLI) | payer BC, SELFPAY ==
--- NOTE | 2022-03-05 14:22 | XR_ITS ---
FINAL REPORT CLINICAL HISTORY: RT GREAT TOE PAIN FINDINGS: RIGHT FOOT Three views of the right foot demonstrate no acute fracture or dislocation. The visualized joint spaces are normally aligned. There is a small calcaneal spur. The soft tissues are unremarkable. IMPRESSION: No acute bony abnormality. Reviewed, Interpreted and Dictated by Walt Gama III, MD Transcribed by Felisha Osuna Authenticated and [facility]
== END ==
PROVIDERS: PCP Nurse Practitioner Family; Visit Provider Nurse Practitioner Family
DX: M79.674 Pain in right toe(s) (principal)
CPT/HCPCS: 73630

== ENCOUNTER → 2022-05-07 10:42 | Outpatient (CLI) | payer BC, SELFPAY ==
--- NOTE | 2022-05-07 10:47 | XR_ITS ---
FINAL REPORT CLINICAL HISTORY: ACUTE RIGHT SIDED LOW BACK PAIN WITH RIGHT SIDED SCIATICA FINDINGS: 5 views of the lumbar spine were obtained. There is no evidence of fracture or dislocation. There is facet arthropathy at L5-S1, right greater than left. There is mild leftward curvature. Disc spaces are preserved. No paraspinous soft tissue abnormalities identified. IMPRESSION: No acute bony abnormality. Reviewed, Interpreted and Dictated by Walt Gama III, MD Transcribed by Tasha Hager Authenticated and [facility]
== END ==
PROVIDERS: PCP Nurse Practitioner Family; Visit Provider Nurse Practitioner Family
DX: M54.41 Lumbago with sciatica, right side (principal)
CPT/HCPCS: 72110

== ENCOUNTER → 2022-08-28 09:22 | Outpatient (CLI) | payer BC, SELFPAY ==
--- NOTE | 2022-08-28 09:22 | XR_ITS ---
FINAL REPORT TECHNIQUE: Bone mineral density was calculated of the lumbar spine and hip. CLINICAL HISTORY: .osteopenia FINDINGS: Using L1-4, the bone mineral density of the spine is 0.889 g/cm2, corresponding to T-score of -1.4. Using the left hip, the bone mineral density of the femoral neck is 0.622 g/cm2, corresponding to a T-score of -2.0. Using the right hip, the bone mineral density of the femoral neck is 0.687 g/cm2, corresponding to a T-score of -1.5. NOTE: T-score: Standard deviation compared with peak bone mass of young adult mean. *Following the recommendations of the International Society of Bone densitometry, classification of hip BMD is based on the lower of two T-scores; total hip or femoral neck. IMPRESSION: Diminished bone mineral density of the lumbar spine and left hip consistent with osteopenia. FRAX data was not reported because patient is being treated for osteoporosis. Reviewed, Interpreted and Dictated by Walt Gama III, MD Transcribed by Danuta Hernandez Authenticated and [facility]
== END ==
PROVIDERS: PCP Family Medicine; Visit Provider Family Medicine
DX: M85.89 Other specified disorders of bone density and structure, multiple sites (principal); E55.9 Vitamin D deficiency, unspecified
CPT/HCPCS: 77080

== ENCOUNTER → 2022-09-05 14:37 | Outpatient (CLI) | payer BC, SELFPAY ==
[2022-09-05 14:42] LABS: Microscopic, Urine URINE MICROSCOPIC (MICROSCOPIC)
[2022-09-05 15:16] LABS: Basophils # 0.1 K/mm3 (0-0.2); Basophils % 1.4 % (0.1-2.0); Eosinophils # 0.2 K/mm3 (0.0-0.4); Eosinophils % 2.2 % (0.1-12.0); Hematocrit 39.1 % (37.0-47.0); Hemoglobin 12.7 g/dL (12.2-16.2); Lymphocytes # 3.2 K/mm3 (0.7-4.5); Lymphocytes % 38.3 % (10-50); Mean Corpuscular HGB Conc 32.5 g/dL (31.8-35.4); Mean Corpuscular Hemoglobin 30.9 pg (27.0-31.2); Mean Corpuscular Volume 95.1 fl (81-99); Mean Platelet Volume 7.8 fl (7.4-10.4); Monocytes # 0.3 K/mm3 (0.1-1.0); Monocytes % 3.9 % (1.7-9.3); Neutrophils # 4.5 K/mm3 (1.8-7.8); Neutrophils % 54.2 % (37.0-80.0); Platelet Count 345 K/mm3 (142-424); Red Blood Count 4.12 M/mm3 (4.20-5.40); Red Cell Distribution Width 13.4 % (11.5-17.5); White Blood Count 8.3 K/mm3 (4.8-10.8)
[2022-09-05 15:28] LABS: Hemoglobin A1C 5.6 % (4.0-6.0)
[2022-09-05 15:42] LABS: Appearance,Urine CLEAR (Clear); Bilirubin,Urine Negative (Negative); Blood, Urine Negative (Negative); Color,Urine YELLOW (Yellow); Glucose,Urine (UA) Negative (Negative); Ketones,Urine Negative (Negative); Leukocyte Esterase,Urine Negative (Negative); Nitrate,Urine Negative (Negative); Protein,Urine Negative (Negative); Specific Gravity, Urine <= 1.005 (1.005-1.030); Urobilinogen,Urine 0.2 EU/dl (0.2)
[2022-09-05 15:48] LABS: Squamous Epithelial Cell,Urine Occasional #/hpf (0-5)
[2022-09-05 15:53] LABS: Alanine Aminotransferase 40 U/L (12-78); Albumin Level 4.9 g/dl (3.5-5.0); Albumin/Globulin Ratio 1.8 (1.1-1.8); Alkaline Phosphatase 114 U/L (38-126); Anion Gap 15.2 mEq/L (5-15); Aspartate Amino Transferase 39 U/L (14-36); Bilirubin,Total 0.4 mg/dl (0.2-1.3); Blood Urea Nitrogen 18 mg/dl (7-17); Calcium 10.1 mg/dl (8.4-10.2); Carbon Dioxide 25 mmol/L (22.0-30.0); Chloride 102 mmol/L (98-107); Chol/HDL Ratio 2.6 (1-3.5); Cholesterol 198 mg/dl (140-200); Estimated Glomerular Filt Rate 58 ml/min (>60); GFR (African American) 70 ML/MIN (>60); Globulin 2.8 g/dL (1.3-3.2); Glucose 100 mg/dl (74-100); HDL Cholesterol 75 mg/dl (40-60); Potassium 4.2 mmoL/L (3.5-5.1); Sodium 138 mmol/L (136-145); Total Protein,Serum 7.7 g/dl (6.3-8.2); Triglycerides 129 mg/dl (30-150); VLDL Cholesterol 26 mg/dL (0-40)
[2022-09-05 16:04] LABS: Direct LDL Cholesterol 92.28 mg/dL (100-129)
[2022-09-05 16:10] LABS: 25-OH Vitamin D, Total 77.8 ng/mL (30-100)
[2022-09-05 16:24] LABS: Thyroid Stimulating Hormone 2.49 uIU/mL (0.465-4.68)
== END ==
PROVIDERS: PCP Family Medicine; Visit Provider Family Medicine
DX: E03.9 Hypothyroidism, unspecified (principal); E55.9 Vitamin D deficiency, unspecified; K21.9 Gastro-esophageal reflux disease without esophagitis; I10 Essential (primary) hypertension; E78.5 Hyperlipidemia, unspecified; Z13.1 Encounter for screening for diabetes mellitus; Z79.899 Other long term (current) drug therapy
CPT/HCPCS: 36415; 80053; 80061; 81001; 82306; 83036; 84443; 85025

== ENCOUNTER → 2022-09-07 13:13 | Outpatient (CLI) | payer BC, SELFPAY ==
--- NOTE | 2022-09-07 13:13 | MM_ITS ---
PROCEDURE INFORMATION: Exam: MG Bilateral Screening 3D Mammography Exam date and time: 09/07/2022 1:17 PM Age: 52 years old Clinical indication: Screening examination; Additional info: Screening mammogram TECHNIQUE: Imaging protocol: Bilateral Screening tomosynthesis and 2D mammography including computer-aided detection (CAD) when performed. COMPARISON: 1. MG MM DIG SC MAMM IMPLANT BI CAD 07/21/2021 10:59 AM 2. MG MM DX IMPLANT LT W/KENNETH 07/13/2020 2:25 PM 3. MG MM DIG SC MAMM IMPLANT BI CAD 11/26/2019 4:52 PM 4. MG DMID DIG MAMM-IMPLANT DX 04/27/2015 3:32 PM FINDINGS: MAMMOGRAPHY: Breast composition: There are scattered areas of fibroglandular density. Mass: None. Architectural distortion: None. Calcifications: No suspicious calcifications. Asymmetric density: None. Skin thickening: None. Axillary adenopathy: None. Implants: Prepectoral silicone implants with extensive bilateral capsular calcification. IMPRESSION: No mammographic evidence of malignancy. Annual screening is recommended unless otherwise clinically indicated. ASSESSMENT: BI-RADS Category 1: Negative
== END ==
PROVIDERS: PCP Family Medicine; Visit Provider Obstetrics & Gynecology
DX: Z12.31 Encounter for screening mammogram for malignant neoplasm of breast (principal)
CPT/HCPCS: 77063; 77067

== ENCOUNTER 2022-09-19 10:45 | Day surgery (SDC) | payer BC, SELFPAY ==
[2022-09-14 09:20] VITALS: BMI 31.8
[2022-09-19] VITALS (7 sets, daily range): BP systolic 113–137; BP diastolic 71–98; PULSE 65–93; RESP 16–18; TEMP 37.1–37.2; O2SAT 98–99
--- NOTE | 2022-09-19 11:45 | EXP.ANES.CKL ---
[facility] Disclaimer: The information contained in this section may have been updated after the patient was seen, as this information can be updated by other users. Medical History Acquired hammertoe of right foot Depression Fractures, multiple GERD (gastroesophageal reflux disease) Hyperlipidemia Hypertension Hypothyroidism Normal Pap smear Osteopenia Right shoulder pain Sprain of left ankle Vitamin D deficiency Surgical History H/O breast augmentation History of hysterectomy Family History Father Coronary artery disease Heart attack Mother Diabetes PML (progressive multifocal leukoencephalopathy) Brother Heart attack Social History Smoking Status: Current every day smoker tobacco type: cigarettes packs per day: 1 pack-years: 30 and e-cigarettes second hand exposure: No alcohol intake: current substance use type: denies use current occupational status: retired Travel in the last 8 weeks: None household members: spouse housing: house lives independently: Yes marital status: number of children: 0 education level: high school caffeine: Yes special tr needs: No agree to transfusion: No do you feel safe at home: Yes victim of physical abuse: No victim of emotional abuse: No victim of sexual abuse: No would you like helpful sources: No [facility] Anesthesia Checklist Patient Identification Patient Identification: Arm Band Structural Data Admitted From: Home Planned Operative Procedure/s: colonoscopy Consent for Planned Operative Procedure(s) Verified: Yes Verified Documents: Surgical Consent and History and Physical NPO Status Verified Time NPO: 00:00 Additional verifications Anesthesia Reactions: No Airway Assessment C-Spine Mobility Assessed: Yes TMJ Mobility Assessed: Yes Dentition: Good Dentition Neurological Assessment Level of Consciousness: Awake and Alert Anesthesia Plan Anesthesia Risk discussed: Yes Anesthesia Plan: Verified ASA Class: II Anesthesia Type: MAC
--- NOTE | 2022-09-19 12:09 | HMH.SCOPE ---
Procedure: Date: 09/19/22 Patient Date of :: 1970 Procedure Performed:: Colonoscopy Indications:: 52 year old who presents today for screening colonoscopy Performing Provider:: Mark Kimble MD Referring Provider:: Karla Barbosa MD Sedation:: See RN records Procedure:: After placing the patient in the left lateral decubitus position, the colonoscopy was gently inserted into the rectum and under direct visualization advanced to the cecum which was identified by transillumination in the right lower quadrant, identification of the ileocecal valve, appendiceal orifice, and cecal strap. Color, texture, mucosa, and anatomy of the colon were carefully examined with the scope. Findings:: Anal canal: normal Rectum: Internal hemorrhoids. Diminutive polyp. Removed with cold forceps Sigmoid colon: Diverticulosis Descending colon: normal without polyps or inflammatory changes Splenic flexure: normal Transverse colon: normal without polyps or inflammatory changes Hepatic flexure: normal Ascending colon: normal without polyps or inflammatory changes Cecum: normal Terminal ileum: not visualized Recommendations:: Await pathology results Repeat colonoscopy in 5 years Complications:: none Estimated blood obtained (mL): 0
== END 2022-09-19 13:00 | disposition home or self-care (01) ==
PROVIDERS: PCP Family Medicine; Visit Provider Internal Medicine
PROC: 0DJD8ZZ Inspection of Lower Intestinal Tract, Via Natural or Artificial Opening Endoscopic (ICD-10-PCS; CPT 45378; principal; 2022-09-19 12:00)
DX: Z12.11 Encounter for screening for malignant neoplasm of colon (principal); K63.5 Polyp of colon; K64.8 Other hemorrhoids; K57.30 Diverticulosis of large intestine without perforation or abscess without bleeding; F17.210 Nicotine dependence, cigarettes, uncomplicated; Z79.899 Other long term (current) drug therapy
CPT/HCPCS: 45380; 88305

== ENCOUNTER → 2022-09-26 09:17 | Outpatient (CLI) | payer BC, SELFPAY ==
--- NOTE | 2022-09-26 09:24 | XR_ITS ---
FINAL REPORT CLINICAL HISTORY: right hip pain FINDINGS: RIGHT HIP Two views of the right hip including an AP pelvis demonstrate no acute fracture or dislocation. There is a sclerotic lesion of the weight-bearing surface of the femoral head which is most suspicious for avascular necrosis. There is moderate osteoarthritic disease which could be secondary to avascular necrosis. There is mild subchondral collapse of the femoral head secondary to avascular necrosis. No soft tissue abnormality is seen. IMPRESSION: Features highly suspicious for a avascular necrosis with osteoarthritis probably secondary to avascular necrosis. Reviewed, Interpreted and Dictated by Blu Hernandez MD Transcribed by Felisha Osuna Authenticated and [facility]
--- NOTE | 2022-09-26 09:24 | XR_ITS ---
FINAL REPORT CLINICAL HISTORY: right knee pain FINDINGS: RIGHT KNEE 4 views of the right knee obtained. There is no acute fracture or dislocation. The joint spaces are intact. There is a sclerotic lesion in the distal femoral shaft which could represent an enchondroma or bony infarct. There is no soft tissue abnormality. IMPRESSION: No acute bony abnormality. Sclerotic lesion in the distal femoral shaft could represent an enchondroma or bony infarct. Reviewed, Interpreted and Dictated by Blu Hernandez MD Transcribed by Felisha Osuna Authenticated and . [facility]
== END ==
PROVIDERS: PCP Family Medicine; Visit Provider Family Medicine
DX: M25.561 Pain in right knee (principal); M25.551 Pain in right hip
CPT/HCPCS: 73502; 73564

== ENCOUNTER → 2022-10-11 10:19 | Outpatient (CLI) | payer BC, SELFPAY ==
--- NOTE | 2022-10-11 10:23 | CT_ITS ---
FINAL REPORT CLINICAL HISTORY: hx of tobacco use/lung cancer screening Currently vapes 1 pod per day. Patient says is equivalent to 1 pack of cigarettes per day. Switched from cigarettes to vape less than 5 years ago. FINDINGS: Axial images were obtained from the lung apex to the mid abdomen by computed tomography. Low-dose protocol was utilized. CTDl vol(mGy): 2.90 DLP (mGy-cm): 110.20 FINDINGS: There is no axillary adenopathy. There is no hilar or mediastinal adenopathy. The heart size is normal. There is no pericardial or pleural effusion. There is no suspicious pulmonary nodule or mass. There is lingular atelectasis. No endobronchial lesion is seen. Limited images of the upper abdomen demonstrate no acute abnormality. IMPRESSION: Lung RADS category 1. Recommend 12 month follow-up low-dose chest CT. Reviewed, Interpreted and Dictated by America Box MD Transcribed by Tasha Hager Authenticated and [facility]
== END ==
PROVIDERS: PCP Family Medicine; Visit Provider Family Medicine
DX: Z87.891 Personal history of nicotine dependence (principal); Z12.2 Encounter for screening for malignant neoplasm of respiratory organs
CPT/HCPCS: 71271

== ENCOUNTER → 2022-10-22 13:31 | Outpatient (CLI) | payer BC, SELFPAY ==
--- NOTE | 2022-10-22 13:59 | MR_ITS ---
FINAL REPORT CLINICAL HISTORY: hip pain. right sided hip and groin pain. symptoms [id number]. no injury or trauma. FINDINGS: Multiplanar MR imaging of the right hip was performed without contrast. There is no evidence of fracture or dislocation. There is avascular necrosis in the superior right femoral head measuring up to 27 mm in transverse dimensions. There is bone marrow edema in the right femoral head and neck. No labral tear is identified. A small right hip joint effusion is seen. There is fluid adjacent to the bilateral greater trochanters that may represent greater trochanteric bursitis. The tendons are intact. The musculature is intact. No soft tissue mass or cyst is identified. 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 Possible bilateral greater trochanteric bursitis. Small right hip joint effusion. Reviewed, Interpreted and Dictated by Walt Gama III, MD Transcribed by Jared Kohler Authenticated and [facility]
== END ==
PROVIDERS: PCP Family Medicine; Visit Provider Orthopaedic Surgery
DX: M25.551 Pain in right hip (principal)
CPT/HCPCS: 73721

== ENCOUNTER → 2022-11-15 12:28 | Outpatient (CLI) | payer BC, SELFPAY ==
[2022-11-16 18:04] LABS: Anti-Centromere B Antibodies <0.2 AI (0.0-0.9); Anti-DNA (DS) Ab Qn 4 IU/mL (0-9); Anti-Jo-1 <0.2 AI (0.0-0.9); Anti-Smith Antibody <0.2 AI (0.0-0.9); Antichromatin Antibodies <0.2 AI (0.0-0.9); Antiscleroderma-70 Antibodies 0.7 AI (0.0-0.9); RNP Antibodies 0.8 AI (0.0-0.9); Sjogren's Anti-SS-A <0.2 AI (0.0-0.9); Sjogren's Anti-SS-B <0.2 AI (0.0-0.9)
[2022-12-01 01:49] LABS: Rheumatoid Factor IGA < 7; Rheumatoid Factor IGM < 7
== END ==
PROVIDERS: PCP Family Medicine; Visit Provider Family Medicine
DX: M25.551 Pain in right hip (principal); M25.561 Pain in right knee
CPT/HCPCS: 36415; 86225; 86235; 86431

== ENCOUNTER → 2022-11-27 11:05 | Outpatient (CLI) | payer BC, SELFPAY ==
--- NOTE | 2022-11-27 11:06 | MR_ITS ---
FINAL REPORT CLINICAL HISTORY: knee pain right knee pain injury march 2022 lateral side pain FINDINGS: Multiplanar MR imaging of the right knee was performed without contrast. The medial and lateral menisci are intact without evidence of meniscal tear. The anterior and posterior cruciate ligaments are intact. The medial collateral ligament and lateral ligamentous complex are intact. The patellar and quadriceps tendons are intact. There is no evidence of fracture. No focal abnormality is identified of the articular cartilage. There is a 5 cm area of osteonecrosis in the distal femoral metaphysis. Small joint effusion is seen. The musculature is intact. No soft tissue mass or cyst is identified. IMPRESSION: Osteonecrosis in the distal femoral metaphysis. Reviewed, Interpreted and Dictated by Walt Gama III, MD Transcribed by Danuta Hernandez Authenticated and [facility]
== END ==
PROVIDERS: PCP Family Medicine; Visit Provider Orthopaedic Surgery
DX: M25.561 Pain in right knee (principal); M23.91 Unspecified internal derangement of right knee
CPT/HCPCS: 73721

== ENCOUNTER 2023-04-04 08:01 | Emergency (ER) | payer BC, SELFPAY ==
[2023-04-04 08:05] VITALS: BP 151/94; PULSE 87; RESP 20; TEMP 36.6; O2SAT 100; BMI 28.3
--- NOTE | 2023-04-04 08:14 | XR_ITS ---
FINAL REPORT CLINICAL HISTORY: fall, RIGHT FOOT PAIN CONCERN FOR STRESS FRACTURE FINDINGS: RIGHT FOOT SERIES Three views of the right foot were obtained. There is no acute fracture or dislocation. The joint spaces are preserved. There is no soft tissue abnormality. There is no evidence of periosteal reaction. There is a small plantar calcaneal spur. IMPRESSION: There is no evidence of fracture, if indicated an MRI may be helpful. Reviewed, Interpreted and Dictated by Walt Gama III, MD Transcribed by Delfino Stubbs Authenticated and [facility]
--- NOTE | 2023-04-04 08:14 | XR_ITS ---
FINAL REPORT CLINICAL HISTORY: fall, LEFT THUMB PAIN FINDINGS: LEFT HAND SERIES Three views of the left hand were obtained. There is a subtle lucency of the proximal aspect of the first metacarpal on the oblique view only, a nondisplaced fracture is not excluded. The joint spaces are preserved. There is no soft tissue abnormality. IMPRESSION: Subtle lucency of the proximal aspect of the first metacarpal on the oblique view only, a nondisplaced fracture is not excluded. Follow-up radiographs may be helpful. Reviewed, Interpreted and Dictated by Walt Gama III, MD Transcribed by Delfino Stubbs Authenticated and [facility]
--- NOTE | 2023-04-04 08:14 | XR_ITS ---
FINAL REPORT CLINICAL HISTORY: fall, LEFT KNEE PAIN, SWELLING, BRUISING FINDINGS: LEFT KNEE SERIES Three views of the left knee were obtained. There is no acute fracture or dislocation. There is a sclerotic area is seen in the distal femur, which likely represents osteonecrosis. The joint spaces are preserved. There is no soft tissue abnormality. IMPRESSION: A sclerotic area is seen in the distal femur, which likely represents osteonecrosis. Reviewed, Interpreted and Dictated by Walt Gama III, MD Transcribed by Delfino Stubbs Authenticated and [facility]
--- NOTE | 2023-04-04 08:16 | EXP.UTC ---
Discharge Plan Disposition Patient Disposition: Home, Self-Care Condition: Good Prescriptions Prescriptions: No Action losartan 100 mg tablet 100 mg PO DAILY omega 5-zux-kyl-fish oil [Fish Oil] 1,200 (144-216) mg capsule 1 cap PO DAILY multivitamin Tablet 1 tab PO DAILY hgxjwnvvqjmg-lxx-kxbuocl-FA 200-0.4 mg tablet,chewable 1 tab PO DAILY alendronate 70 mg tablet 70 mg PO WEEKLY Qty: 12 3RF semaglutide (weight loss) 1 mg/0.5 mL pen injector 1 mg SQ WEEKLY Qty: 2 0RF Rx Instructions: administer weeks 9 through 12 of therapy calcium citrate 200 mg (950 mg) tablet 500 mg PO BID metaxalone 800 mg tablet 800 mg PO BID Vraylar 1.5 mg capsule 1.5 mg PO DAILY Qty: 30 0RF naproxen 500 mg tablet 500 mg PO BID PRN (Reason: pain) Qty: 60 0RF omeprazole 40 mg capsule,delayed release(DR/EC) See Rx Instructions .ROUTE .COMPLEX Qty: 90 3RF Dose Instruction: TAKE 1 CAPSULE DAILY Rx Instructions: TAKE 1 CAPSULE DAILY bupropion HCl 200 mg tablet sustained-release 12 hr See Rx Instructions .ROUTE .COMPLEX Qty: 180 3RF Dose Instruction: TAKE 1 TABLET (200 MG) TWICE A DAY FOR ANXIETY Rx Instructions: TAKE 1 TABLET (200 MG) TWICE A DAY FOR ANXIETY levothyroxine 100 mcg tablet See Rx Instructions .ROUTE .COMPLEX Qty: 90 3RF Dose Instruction: TAKE 1 TABLET (100 MCG) DAILY FOR THYROID Rx Instructions: TAKE 1 TABLET (100 MCG) DAILY FOR THYROID cholecalciferol (vitamin D3) 1,250 mcg (50,000 unit) capsule See Rx Instructions .ROUTE .COMPLEX Qty: 12 3RF Dose Instruction: TAKE 1 CAPSULE WEEKLY FOR SUPPLEMENT Rx Instructions: TAKE 1 CAPSULE WEEKLY FOR SUPPLEMENT estradiol 1 mg tablet 1 mg PO DAILY estradiol [Vagifem] 10 mcg tablet 10 mcg VAGINAL DAILY amlodipine 10 mg tablet 10 mg PO DAILY Referrals Follow up/Referrals: Dayne Barbosa DO [Staff Physician] - See instructions (Call office for appointment) Marce Borges APRN [Primary Care Provider] - See instructions Activity Restrictions/Add. Instructions Additional Instructions/Restrictions: *weight bearing as tolerated *RICE, Rest the extremity, Ice 15-20 minutes 3-4 times daily, Compress- wear the chauncey wrap as discussed as much as possible to help reduce swelling and pain, Elevate the extremity when at rest *Chauncey wrap is for support and help control swelling, use it except in the shower. Be sure that is not to tight but not to loose either *Elevate when resting? *Ibuprofen 600-800mg every 6-8 hours as needed for pain an inflammation. If need something more can take Tylenol in between doses of Ibuprofen to help Immediately follow up with your family doctor for new or worsening of symptoms, or no noticeable improvement over the next 3-5 days Clinical Impressions Clinical Impression: Fall Qualifiers: Encounter type: initial encounter Qualified Code(s): W19.XXXA - Unspecified fall, initial encounter Instructions Patient Instructions: DI for Contusion, How To Perform RICE (Rest, Ice, Compress, Elevate), Ibuprofen Discharge ED Provider: Velia Ewing [facility] [place] General Stated complaint: Fall@home 04/03 LT thumb, LT knee, RT foot pain Mode of Arrival: Ambulatory Source of Information: Patient Limitations: No Limitations Time Seen by Provider: 04/04/23 08:16 Description of Symptoms (Recalled from Triage Doc. by RN): PATIENT REPORTS FALLING AT HOME LAST NIGHT AND INJURING LEFT THUMB AND LEFT KNEE. SHE ALSO IS WANTING TO MAKE SURE SHE DOESN'T HAVE A STRESS FRACTURE TO HER RIGHT FOOT HEENT Symptoms (Recalled from RN notes): No Resp Symptoms (Recalled from RN notes): No Skin Symptoms (Recalled from RN notes): No MS Symptoms (Recalled from RN notes): Yes Functional Status (Recalled from RN notes): WNL History of Present Illness Provider Complaint: Patient states that she fell at home last night coming through her door f
[2023-04-04 08:57] VITALS: BP 151/94; PULSE 87; RESP 20; TEMP 36.6; O2SAT 100
== END 2023-04-04 09:45 | disposition home or self-care (01) ==
PROVIDERS: Emergency Provider Nurse Practitioner; PCP Nurse Practitioner Family
DX: M79.671 Pain in right foot (principal); S80.02XA Contusion of left knee, initial encounter; S60.012A Contusion of left thumb without damage to nail, initial encounter; F17.210 Nicotine dependence, cigarettes, uncomplicated; K21.9 Gastro-esophageal reflux disease without esophagitis; E03.9 Hypothyroidism, unspecified; I10 Essential (primary) hypertension; E78.5 Hyperlipidemia, unspecified; F32.A Depression, unspecified; E55.9 Vitamin D deficiency, unspecified; W01.0XXA Fall on same level from slipping, tripping and stumbling without subsequent striking against object, initial encounter
CPT/HCPCS: 73130; 73562; 73630; 99212; 99214; G0463

== ENCOUNTER → 2023-05-15 15:35 | Outpatient (CLI) | payer BC, SELFPAY ==
--- NOTE | 2023-05-15 15:42 | MR_ITS ---
PROCEDURE INFORMATION: Exam: MR Head Without and With Contrast Exam date and time: 05/15/2023 3:59 PM Age: 52 years old Clinical indication: Altered mental status/memory loss; Additional info: Memory loss x 6 months. TECHNIQUE: Imaging protocol: Magnetic resonance imaging of the head without and with contrast. Contrast material: PROHANCE; Contrast volume: 13 ml; Contrast route: IV; COMPARISON: No relevant prior studies available. FINDINGS: Brain: No acute infarct. No brain parenchymal signal abnormality. No abnormal parenchymal or leptomeningeal enhancement. No mass effect or midline shift. No extra-axial collection. No acute intracranial hemorrhage. Basal cisterns are patent. Cerebral ventricles: Normal. No ventriculomegaly. Bones/joints: Unremarkable. Paranasal sinuses: Normal as visualized. No acute sinusitis. Mastoid air cells: Normal as visualized. No mastoid effusion. Orbital cavities: Unremarkable. Soft tissues: Unremarkable. IMPRESSION: Unremarkable exam.
[2023-05-15 16:27] LABS: Blood Urea Nitrogen 11 mg/dl (7-17); Estimated Glomerular Filt Rate 52 ml/min (>60); GFR (African American) 63 ML/MIN (>60)
== END ==
PROVIDERS: PCP Nurse Practitioner Family; Visit Provider Nurse Practitioner Family
DX: R41.3 Other amnesia (principal)
CPT/HCPCS: 36415; 70553; 82565; 84520; A9576

== ENCOUNTER → 2023-07-23 11:36 | Outpatient (CLI) | payer BC, SELFPAY ==
[2023-07-23 12:32] LABS: Hematocrit 39.8 % (37.0-47.0); Hemoglobin 13.6 g/dL (12.2-16.2); Mean Corpuscular HGB Conc 34.1 g/dL (31.8-35.4); Mean Corpuscular Hemoglobin 31.6 pg (27.0-31.2); Mean Corpuscular Volume 92.8 fl (81-99); Platelet Count 266 K/mm3 (142-424); Red Blood Count 4.29 M/mm3 (4.20-5.40); Red Cell Distribution Width 13.1 % (11.5-17.5); White Blood Count 6.1 K/mm3 (4.8-10.8)
[2023-07-23 13:29] LABS: Chloride 105 mmol/L (98-107)
[2023-07-23 13:30] LABS: Potassium 4.4 mmoL/L (3.5-5.1); Sodium 138 mmol/L (136-145)
[2023-07-23 13:32] LABS: Blood Urea Nitrogen 9 mg/dl (7-17); Estimated Glomerular Filt Rate 58 ml/min (>60); GFR (African American) 70 ML/MIN (>60)
[2023-07-23 13:33] LABS: Anion Gap 12.4 mEq/L (5-15); Calcium 9.4 mg/dl (8.4-10.2); Carbon Dioxide 25 mmol/L (22.0-30.0); Glucose 101 mg/dl (74-100)
== END ==
PROVIDERS: PCP Nurse Practitioner Family; Visit Provider Nurse Practitioner Family
DX: M16.11 Unilateral primary osteoarthritis, right hip (principal)
CPT/HCPCS: 36415; 80048; 85014; 85018; 85048; 85049

== ENCOUNTER → 2023-08-29 10:21 | Outpatient (CLI) | payer BC, SELFPAY ==
[2023-08-29 10:28] LABS: Basophils % 0.4 % (0.1-2.0); Eosinophils % 0.5 % (0.1-12.0); Hematocrit 41.9 % (37.0-47.0); Lymphocytes # 2.3 K/mm3 (0.7-4.5); Lymphocytes % 32.8 % (10-50); Mean Corpuscular HGB Conc 33.5 g/dL (31.8-35.4); Mean Corpuscular Hemoglobin 31.7 pg (27.0-31.2); Mean Corpuscular Volume 94.7 fl (81-99); Monocytes # 0.3 K/mm3 (0.1-1.0); Monocytes % 4.6 % (1.7-9.3); Neutrophils # 4.4 K/mm3 (1.8-7.8); Neutrophils % 61.8 % (37.0-80.0); Platelet Count 313 K/mm3 (142-424); Red Blood Count 4.43 M/mm3 (4.20-5.40); Red Cell Distribution Width 13.8 % (11.5-17.5); White Blood Count 7.1 K/mm3 (4.8-10.8)
[2023-08-29 10:59] LABS: Hemoglobin A1C 4.9 % (4.0-6.0)
[2023-08-29 11:00] LABS: Free T4 (Free Thyroxine) 1.86 ng/dl (0.78-2.19)
[2023-08-29 12:42] LABS: Alanine Aminotransferase 38 U/L (12-78); Albumin Level 4.7 g/dl (3.5-5.0); Albumin/Globulin Ratio 1.5 (1.1-1.8); Alkaline Phosphatase 95 U/L (38-126); Anion Gap 13.3 mEq/L (5-15); Aspartate Amino Transferase 36 U/L (14-36); Bilirubin,Total 0.4 mg/dl (0.2-1.3); Blood Urea Nitrogen 14 mg/dl (7-17); Carbon Dioxide 27 mmol/L (22.0-30.0); Chloride 99 mmol/L (98-107); Chol/HDL Ratio 3.6 (1-3.5); Cholesterol 246 mg/dl (140-200); Estimated Glomerular Filt Rate 58 ml/min (>60); GFR (African American) 70 ML/MIN (>60); Globulin 3.1 g/dL (1.3-3.2); Glucose 105 mg/dl (74-100); HDL Cholesterol 68 mg/dl (40-60); Potassium 4.3 mmoL/L (3.5-5.1); Sodium 135 mmol/L (136-145); Total Protein,Serum 7.8 g/dl (6.3-8.2); Triglycerides 138 mg/dl (30-150); VLDL Cholesterol 28 mg/dL (0-40)
[2023-08-29 12:53] LABS: Direct LDL Cholesterol 125.74 mg/dL (100-129)
[2023-08-29 13:03] LABS: 25-OH Vitamin D, Total > 126 ng/mL (30-100)
[2023-08-29 13:13] LABS: Thyroid Stimulating Hormone 1.34 uIU/mL (0.465-4.68)
[2023-08-29 13:32] LABS: Vitamin B12 922 pg/mL (239-931)
== END ==
PROVIDERS: PCP Nurse Practitioner Family; Visit Provider Nurse Practitioner Family
DX: I10 Essential (primary) hypertension (principal); E78.5 Hyperlipidemia, unspecified; R41.3 Other amnesia; E03.9 Hypothyroidism, unspecified; E55.9 Vitamin D deficiency, unspecified; Z13.1 Encounter for screening for diabetes mellitus; Z79.899 Other long term (current) drug therapy
CPT/HCPCS: 80053; 80061; 82306; 82607; 83036; 84439; 84443; 85025

== ENCOUNTER → 2023-09-18 13:19 | Outpatient (CLI) | payer BC, SELFPAY ==
--- NOTE | 2023-09-18 13:23 | MM_ITS ---
PROCEDURE INFORMATION: Exam: MG Bilateral Screening 3D Mammography Exam date and time: 09/18/2023 1:20 PM Age: 53 years old Clinical indication: Screening mammogram TECHNIQUE: Imaging protocol: Bilateral Screening tomosynthesis and 2D mammography including computer-aided detection (CAD) when performed. COMPARISON: 1. MG MM DIG SC MAMM IMPLANT BI CAD 09/07/2022 1:17 PM 2. MG MM DIG SC MAMM IMPLANT BI CAD 07/21/2021 10:59 AM 3. MG MM DX IMPLANT LT W/KENNETH 07/13/2020 2:25 PM 4. MG MM DIG SC MAMM IMPLANT BI CAD 11/26/2019 4:52 PM FINDINGS: MAMMOGRAPHY: Breast composition: There are scattered areas of fibroglandular density. Mass: None. Architectural distortion: No new or suspicious architectural distortion. Calcifications: No new or suspicious calcifications are present Asymmetric density: No new or suspicious asymmetric density is present Skin thickening: None. Axillary adenopathy: None. Implants: Prepectoral augmentation implants are present. IMPRESSION: No mammographic evidence of malignancy. Recommend annual screening mammography unless otherwise clinically indicated. ASSESSMENT: BI-RADS category 2: Benign
== END ==
LOC: RAD 13:20
PROVIDERS: PCP Nurse Practitioner Family; Visit Provider Nurse Practitioner Family
DX: Z12.31 Encounter for screening mammogram for malignant neoplasm of breast (principal)
CPT/HCPCS: 77063; 77067

== ENCOUNTER 2023-10-08 11:00 | Outpatient (RCR) | payer BC, SELFPAY | END 2023-10-08 12:00 | disposition home or self-care (01) | LOC: PT 11:00 | PROVIDERS: PCP Nurse Practitioner Family; Visit Provider Nurse Practitioner Family | DX: M16.11 Unilateral primary osteoarthritis, right hip (principal); Z96.641 Presence of right artificial hip joint | CPT/HCPCS: 97010; 97014; 97110; 97163; 97164; 97530; 97535; G0283 ==

== ENCOUNTER 2023-11-07 13:35 | Outpatient (CLI) | payer BC, SELFPAY ==
[2023-11-08 03:44] LABS: Estradiol 63.4 pg/mL (.); Progesterone 0.2 ng/mL (.); Testosterone,Total <3 ng/dL (4-50)
== END 2023-11-07 23:59 ==
LOC: LAB 13:35
PROVIDERS: PCP Nurse Practitioner Family; Visit Provider Obstetrics & Gynecology
DX: E34.9 Endocrine disorder, unspecified (principal)
CPT/HCPCS: 36415; 82670; 84144; 84403

== ENCOUNTER 2023-12-26 12:52 | Outpatient (CLI) | payer BC, SELFPAY ==
--- NOTE | 2023-12-26 12:52 | XR_ITS ---
FINAL REPORT CLINICAL HISTORY: neck/thoracic back pain, osteoporosis COMPARISON: None FINDINGS: CERVICAL SPINE 5 views were obtained. There is no acute fracture or malalignment. There is mild and moderate degenerative change. Cervical lordosis is preserved. Facet joints are properly aligned. There is mild left C4-5 and moderate left C5-6 neural foraminal narrowing. IMPRESSION: Mild and moderate degenerative changes without acute process. THORACIC SPINE Three views were obtained. There is no acute fracture or malalignment. There is S shaped curvature of the thoracic spine. There is moderate degenerative change with osteophytes. IMPRESSION: Moderate degenerative change without acute process. Reviewed, Interpreted and Dictated by Walt Gama III, MD Transcribed by Vilma Johnson Authenticated and [facility]
--- NOTE | 2023-12-26 12:52 | CT_ITS ---
FINAL REPORT TECHNIQUE: Thin section axial images were obtained from the lung apices to the upper abdomen by computed tomography. Reformatted images were obtained and reviewed. This study was performed with techniques to keep radiation doses al low as reasonably achievable (ALARA). Individualized dose reduction techniques using automated exposure control or adjustment of mA and/or kV according to the patient's size were employed. CLINICAL HISTORY: lung cancer screening former smoker quit less than 5 years ago. smoked 1 ppd. approx 40 year smoker. currently vapes equiv. to 1 ppd for approx 5 years COMPARISON: 10/11/2022 FINDINGS: CHEST CT LOW DOSE CTDI vol (mGy): 2.90 DLP (mGy-cm): 104.99 There is no axillary adenopathy. There is no mediastinal or hilar mass or adenopathy. The heart is normal in size. There are moderate to severe left coronary artery calcifications. There is no pericardial or pleural effusion. Lung window images demonstrate no new suspicious infiltrate or nodule. Limited images of the upper abdomen are unremarkable. IMPRESSION: Lung-RADS category 1S. Recommend 12 month follow up low dose chest CT. Modifier S: Moderate to severe left coronary artery calcifications. Reviewed, Interpreted and Dictated by Walt Gama III, MD Transcribed by Vilma Johnson Authenticated and [facility]
== END 2023-12-26 23:59 ==
LOC: RAD 12:52
PROVIDERS: PCP Nurse Practitioner Family; Visit Provider Nurse Practitioner Family
DX: Z12.2 Encounter for screening for malignant neoplasm of respiratory organs (principal); Z87.891 Personal history of nicotine dependence; M54.6 Pain in thoracic spine; M54.2 Cervicalgia
CPT/HCPCS: 71271; 72084

== ENCOUNTER 2024-01-28 12:54 | Outpatient (CLI) | payer BC, SELFPAY ==
--- NOTE | 2024-01-28 12:55 | NM_ITS ---
APPROVED REPORT Exam: Nuclear Stress Test Indication: lt arm pain..fatigue..palpitations Patient Location: Outpatient Stress Tech: Jeaneth Curtis [place] Tech:NEMESIO Farrell RT(R)(N) Ht: 5 ft 3 in Wt: 145 lbs Bra Size: 38d HR: 70 bpm BP: 121/82 mmHg BSA: 1.69 m2 Rhythm: NSR TID: 0.85 BMI: 25.6 History: lt arm pain..fatigue..palpitations Procedure: Patient received 0.4 mg of intravenous Lexiscan, resting heart rate 70 bpm, resting blood pressure 121/82 mmHg, with Lexiscan maximum heart rate achieved was 120 bpm which is 85 % of the maximum predicted heart rate and blood pressure was 132/72 mmHg. With Lexiscan, patient denied any complaint of chest pain. Cardiac Stress and Resting SPECT Images: Cardiac Stress and Resting SPECT images were obtained using technetium 99m Myoview 30.5 mCi stress and 10.77 mCi at rest. The patient could not lie on her abdomen. Therefore, prone stress imaging could not be performed. This may affect the diagnostic interpretation of the study findings. Resting and stress imaging in supine positions demonstrate no evidence of fixed or reversible perfusion defects. Gated imaging demonstrates normal global and regional LV systolic function. LVEF is calculated at 59%. Conclusion: No evidence of fixed or reversible perfusion defects. Gated imaging demonstrates normal global and regional LV systolic function. LVEF is calculated at 59%. Electronically signed by : Angle Nicholas MD 01/30/2024 00:46:55
--- NOTE | 2024-01-28 13:25 | CA_ITS ---
APPROVED REPORT EXAM: Comprehensive 2D, Doppler, and color-flow Echocardiogram Vice Admiral: RADHA Pineda, RVS Ht: 5 ft 3 in Wt: 148lbs BSA: 1.70 BP: 113/81 mmHg Indications: cad, aBN ekg, SMOKER, FATIGUE, HLD 2D Dimensions Left Atrium 2.87 cm LA Volume 51.80 mL LA Volume Index [id number] mL/m2 (M/F) 16-34 M-Mode Dimensions RVDd 2.50 cm (0.9-2.6) LA Diam 3.20 cm (1.9-4.0) LVDd 4.63 cm (3.5-5.7) LVDs 3.06 cm (3.5-5.7) IVSd 0.75 cm (0.6-1.1) PWd 0.53 cm (0.6-1.1) EF (Teich) 62.90% EPSs 0.50 cm FS 33.90% EDV (Teich) 98.80 mL TAPSE 2.21 (<1.7) ESV (Teich) 36.70 mL LV Diastology E Decel Time 217 (160-240 msec) E/A Ratio 1.34 MED A' 13.80 cm/s LAT A' 15.30 cm/s Aortic Valve NIMISHA Index 1.37 cm2/m2 AoV Peak Andrea. 138.0 (50-130 cm/s) AO Peak GR. 7.70 mmHg AO Mean GR. 3.90 (<5 mmHg) AO VTI 29.8 (18-25 cm) NIMISHA (VTI) 2.38 (2.5-4.5 cm2) Mitral Valve MV A Velocity 76.0 (40-130 cm/s) E/A Ratio 1.34 Pulmonary Valve PV Peak Velocity 92.0 (50-150 cm/s) Tricuspid Valve TR P. Velocity 214.00 cm/s RAP Estimate 10.00 mmHg RVSP 28.30 mmHg Left Ventricle The left ventricle is normal size. The left ventricular systolic function is normal. The left ventricular ejection fraction is within the normal range. There is normal left ventricular wall thickness. There is normal LV segmental wall motion. The left ventricular diastolic function is normal. LVEF is 55%. Right Ventricle The right ventricle is normal size. The right ventricular systolic function is normal. Atria The left atrium size is normal. The right atrium size is normal. There is no Doppler evidence of interatrial shunt. Aortic Valve The aortic valve opens well. There is no aortic valvular stenosis. No aortic regurgitation is present. Mitral Valve The mitral valve leaflets are mildly thickened. No evidence of mitral valve stenosis. Trace mitral valve regurgitation noted. Tricuspid Valve The tricuspid valve leaflets are thin and pliable. Trace tricuspid regurgitation. RVSP is 15-20 mmHg. Pulmonic Valve The pulmonary valve is normal in structure. Trace pulmonic regurgitation. Great Vessels The aortic root is normal in size. The ascending aorta is not well-visualized. IVC is normal in size and collapses >50% with inspiration. Pericardium There is no pericardial effusion. Other Information Study Quality: Technically Difficult Conclusion Technically difficult study due to poor acoustic windows. Normal biventricular systolic function. No significant valvular stenosis or regurgitation. Electronically signed by : Angle Nicholas MD 02/01/2024 23:42:04
[2024-01-28] MEDS: REGADENOSON 0.4MG/5ML SYRINGE 0.400000000000000022 MG IV (14:39)
[2024-01-28] MEDS: SODIUM CHLORIDE 0.9% 10ML SYR (RAD ONLY) 10 ML IV ×2 (14:39)
[2024-01-28] MEDS: ISOTOPE MYOVIEW (PER STUDY) 1 DOSE IV (14:39)
--- NOTE | 2024-01-28 15:00 | CA_ITS ---
APPROVED REPORT Exam: Pharmacologic Technologist: Jeaneth Curtis Ht: 5 ft 3 in Wt: 148 lbs BSA: 1.70 m2 HR: 67 bpm BP: 121/82 mmHg Rhythm: NSR Indications: CAD Medical History Medications: Amlodipine,,,,, Levothyroxine,,,,, Fish Oil,,,,, Losartan,,,,, Atorvastatin,,,,, Cyclobenzaprine,,,,, Metaxalone,,,,, Prolia,,,,, Multivitamin,,,,, Vagifem,,,,, Cetrogens-methyltesterone,,,,, Stress Test Details Test: LEXISCAN HR Resting HR: 70 bpm Max Heart Rate (APMHR): 166 bpm Max HR Achieved: 120 bpm Target HR (85% APMHR): 141 bpm % of APMHR: 72 Recovery HR: 90 bpm BP Resting BP: 121.0/82.0 mmHg Max BP: 132.0/72.0 mmHg Recovery BP: 132.0/72.0 mmHg ECG Resting ECG: Normal sinus rhythm Stress ECG: No significant ST changes Arrhythmia: PVCs Clinical Exercise duration: 04:02 min Highest Stage Achieved: Exercise capacity: 1.0 METs Stress ECG Conclusion Symptoms: Dizziness Arrhythmias/Ectopy: PVC ST-T Changes: No significant ST changes Conclusion: EKG portion unremarkable due to Lexiscan infusion. Myoview images reported separately. Test Summary REST . . . . . . . Resting REST 01:58 . . 70 . 121/ 82 . . Stage 1 . . . . . . . Myoview Injected Stage 1 01:00 . . 112 . . . . Stage 2 01:00 . . 120 . 126/ 75 . . Stage 3 01:00 . . 106 . 118/ 76 . . Stage 4 01:00 . . 96 . 108/ 79 . . Stage 4 01:02 . . 100 . 108/ 79 . Stop exercise at 04:02 RECOVERY 01:00 . . 95 . 113/ 79 . . RECOVERY 02:00 . . 85 . 113/ 79 . . RECOVERY 02:59 . . 80 . 132/ 72 . . Electronically signed by : Angle Nicholas MD 01/30/2024 00:45:18
== END 2024-01-28 23:59 | disposition home or self-care (01) ==
LOC: RAD 12:55
PROVIDERS: PCP Nurse Practitioner Family; Visit Provider Internal Medicine
DX: I25.10 Atherosclerotic heart disease of native coronary artery without angina pectoris (principal); R94.31 Abnormal electrocardiogram [ECG] [EKG]; R53.83 Other fatigue; Z82.49 Family history of ischemic heart disease and other diseases of the circulatory system; E78.5 Hyperlipidemia, unspecified; I10 Essential (primary) hypertension; Z72.0 Tobacco use
CPT/HCPCS: 78452; 93017; 93018; 93306; A9502; J2785

== ENCOUNTER → 2024-03-12 08:27 | Outpatient (CLI) | payer BC, SELFPAY | LOC: SL 08:28 | PROVIDERS: PCP Nurse Practitioner Family; Visit Provider Nurse Practitioner Family | DX: G47.33 Obstructive sleep apnea (adult) (pediatric) (principal); R06.83 Snoring | CPT/HCPCS: G0399 ==

== ENCOUNTER 2024-04-30 08:00 | Outpatient (RCR) | payer BC, SELFPAY | END 2024-04-30 08:05 | disposition home or self-care (01) | LOC: PT 08:00 | PROVIDERS: Visit Provider Anesthesiology Pain Medicine | DX: G25.89 Other specified extrapyramidal and movement disorders (principal); M54.6 Pain in thoracic spine; G89.29 Other chronic pain | CPT/HCPCS: 97010; 97014; 97110; 97140; 97163; 97164; G0283 ==

== ENCOUNTER 2024-06-15 13:14 | Outpatient (CLI) | payer BC, SELFPAY ==
[2024-06-15 12:31] LABS: Microscopic, Urine URINE MICROSCOPIC (MICROSCOPIC)
[2024-06-15 13:02] LABS: Basophils # 0.1 K/mm3 (0-0.2); Basophils % 0.8 % (0.1-2.0); Eosinophils # 0.2 K/mm3 (0.0-0.4); Eosinophils % 2.9 % (0.1-12.0); Hematocrit 44.3 % (37.0-47.0); Hemoglobin 14.1 g/dL (12.2-16.2); Lymphocytes # 2.9 K/mm3 (0.7-4.5); Lymphocytes % 36.5 % (10-50); Mean Corpuscular HGB Conc 31.7 g/dL (31.8-35.4); Mean Corpuscular Volume 100.8 fl (81-99); Mean Platelet Volume 9.6 fl (7.4-10.4); Monocytes # 0.4 K/mm3 (0.1-1.0); Monocytes % 5.1 % (1.7-9.3); Neutrophils # 4.4 K/mm3 (1.8-7.8); Neutrophils % 54.6 % (37.0-80.0); Platelet Count 392 K/mm3 (142-424); Red Cell Distribution Width 14.5 % (11.5-17.5)
[2024-06-15 13:04] LABS: Appearance,Urine CLEAR (Clear); Bilirubin,Urine Negative (Negative); Blood, Urine Negative (Negative); Color,Urine YELLOW (Yellow); Glucose,Urine (UA) Negative (Negative); Ketones,Urine Negative (Negative); Leukocyte Esterase,Urine Negative (Negative); Nitrate,Urine Negative (Negative); Protein,Urine Negative (Negative); Specific Gravity, Urine <= 1.005 (1.005-1.030); Urobilinogen,Urine 0.2 EU/dl (0.2)
[2024-06-15 14:14] LABS: Bacteria,Urine Trace /lpf; Squamous Epithelial Cell,Urine Occasional #/hpf (0-5); WBC,Urine Occasional #/hpf (0-3)
[2024-06-15 15:19] LABS: Chloride 107 mmol/L (98-107); Sodium 137 mmol/L (136-145)
[2024-06-15 15:20] LABS: Potassium 4.5 mmoL/L (3.5-5.1)
[2024-06-15 15:22] LABS: Alanine Aminotransferase 33 U/L (12-78); Albumin/Globulin Ratio 1.6 (1.1-1.8); Alkaline Phosphatase 88 U/L (38-126); Anion Gap 12.5 mEq/L (5-15); Aspartate Amino Transferase 37 U/L (14-36); Bilirubin,Total 0.7 mg/dl (0.2-1.3); Blood Urea Nitrogen 13 mg/dl (7-17); Carbon Dioxide 22 mmol/L (22.0-30.0); Cholesterol 146 mg/dl (140-200); Estimated Glomerular Filt Rate 87 ml/min (>60); GFR (African American) 105 ML/MIN (>60); Globulin 3.1 g/dL (1.3-3.2); Glucose 79 mg/dl (74-100); Iron 160 ug/dL (37-170); Total Protein,Serum 8.1 g/dl (6.3-8.2); Triglycerides 58 mg/dl (30-150); VLDL Cholesterol 12 mg/dL (0-40)
[2024-06-15 15:23] LABS: Calcium 10.2 mg/dl (8.4-10.2); Chol/HDL Ratio 1.6 (1-3.5); HDL Cholesterol 89 mg/dl (40-60)
[2024-06-15 15:33] LABS: Direct LDL Cholesterol 36.45 mg/dL (100-129)
[2024-06-15 15:35] LABS: Total Iron Binding Capacity 432 ug/dL (265-497)
[2024-06-15 15:39] LABS: Free T4 (Free Thyroxine) 0.99 ng/dl (0.78-2.19)
[2024-06-15 15:54] LABS: Thyroid Stimulating Hormone 1.37 uIU/mL (0.465-4.68)
[2024-06-15 15:58] LABS: Ferritin 72.2 ng/ml (11.1-264)
[2024-06-15 17:27] LABS: Hemoglobin A1C 5.3 % (4.0-6.0)
[2024-06-15 23:47] LABS: Vitamin B12 412 pg/mL (239-931)
[2024-06-16 00:55] LABS: HIV (1&2) Antibody Rapid NONREACTIVE (NONREACTIVE)
[2024-06-16 02:09] LABS: 25-OH Vitamin D, Total 99.9 ng/mL (30-100)
[2024-06-16 08:27] LABS: Estradiol 65.2 pg/mL (.); HCV Ab Non Reactive (Non Reactive); Progesterone 0.1 ng/mL (.)
[2024-06-26 21:09] LABS: Testosterone, Total, LC/MS 7.1 ng/dL (.)
== END 2024-06-15 23:59 | disposition home or self-care (01) ==
LOC: LAB.DROPOF 13:14
PROVIDERS: PCP Nurse Practitioner Family; Visit Provider Nurse Practitioner Family
DX: G47.26 Circadian rhythm sleep disorder, shift work type (principal); G47.33 Obstructive sleep apnea (adult) (pediatric); R53.83 Other fatigue; R68.82 Decreased libido; F41.1 Generalized anxiety disorder; M79.7 Fibromyalgia; E03.9 Hypothyroidism, unspecified; F32.A Depression, unspecified; R63.5 Abnormal weight gain; Z11.4 Encounter for screening for human immunodeficiency virus [HIV]; M81.0 Age-related osteoporosis without current pathological fracture; F10.10 Alcohol abuse, uncomplicated; Z13.1 Encounter for screening for diabetes mellitus; I10 Essential (primary) hypertension; R79.89 Other specified abnormal findings of blood chemistry; N95.1 Menopausal and female climacteric states; N95.2 Postmenopausal atrophic vaginitis; G47.10 Hypersomnia, unspecified; Z11.59 Encounter for screening for other viral diseases; E55.9 Vitamin D deficiency, unspecified; Z68.29 Body mass index [BMI] 29.0-29.9, adult; Z72.0 Tobacco use
CPT/HCPCS: 80050; 80053; 80061; 81001; 82306; 82607; 82670; 82728; 83036; 83540; 83550; 84144; 84156; 84403; 84439; 84443; 85025; 86225; 86235; 86803; 87086; 87389

== ENCOUNTER 2024-09-07 09:23 | Outpatient (CLI) | payer BC, SELFPAY ==
--- NOTE | 2024-09-07 09:24 | XR_ITS ---
FINAL REPORT TECHNIQUE: Bone densitometry calculations of the lumbar spine and left hip were obtained. CLINICAL HISTORY: osteoporosis, right hip replacement FINDINGS: Using L1-4, the bone mineral density of the spine is 0.880 g/cm2, corresponding to T-score of -1.5. Using the left hip, the bone mineral density of the femoral neck is XXXX g/cm2, corresponding to a T-score of -1.8. NOTE: T-score: Standard deviation compared with peak bone mass of young adult mean. *Following the recommendations of the International Society of Bone densitometry, classification of hip BMD is based on the lower of two T-scores; total hip or femoral neck. IMPRESSION: Diminished bone mineral density of the lumbar spine and left hip consistent with osteopenia. Reviewed, Interpreted and Dictated by Blu Hernandez MD Transcribed by Shanti Alva Authenticated and [facility]
== END 2024-09-07 23:59 | disposition home or self-care (01) ==
LOC: RAD 09:24
PROVIDERS: PCP Nurse Practitioner Family; Visit Provider Nurse Practitioner Family
DX: M81.0 Age-related osteoporosis without current pathological fracture (principal)
CPT/HCPCS: 77080

== ENCOUNTER 2024-09-17 13:34 | Emergency (ER) | payer BC, SELFPAY ==
[2024-09-17 15:40] VITALS: BP 145/95; PULSE 93; RESP 18; TEMP 36.9; O2SAT 98; BMI 31.3
[2024-09-17 15:48] LABS: Influenza A, PCR Not Detected (NotDetected); Influenza B, PCR Not Detected (NotDetected)
--- NOTE | 2024-09-17 15:51 | EXP.UTC ---
Discharge Plan Disposition Patient Disposition: Home, Self-Care Condition: Good Prescriptions Prescriptions: No Action estradiol [Vagifem] 10 mcg tablet 10 mcg VAGINAL DAILY Qty: 90 3RF levothyroxine 100 mcg tablet 100 mcg PO DAILY losartan 100 mg tablet 100 mg PO DAILY armodafinil 200 mg tablet 100 mg PO DAILY Rx Instructions: Take one tablet each morning. tizanidine 2 mg tablet 2 mg PO HS Qty: 60 4RF Rx Instructions: Take 1-2 tablets, PO, as needed, at bedtime. desvenlafaxine succinate 100 mg tablet extended release 24 hr 100 mg PO DAILY Wegovy 1 mg/0.5 mL pen injector 1 mg SQ WEEKLY Qty: 2 0RF Rx Instructions: administer weeks 9 through 12 of therapy multivitamin Tablet 1 tab PO DAILY atorvastatin 40 mg tablet 40 mg PO HS Qty: 90 3RF aspirin [Adult Aspirin Regimen] 81 mg tablet,delayed release (DR/EC) 81 mg PO DAILY Qty: 30 5RF amlodipine 10 mg tablet 10 mg PO DAILY Qty: 90 3RF estrogens-methyltestosterone 1.25-2.5 mg tablet 1 tab PO ONCE Qty: 30 1RF Referrals Follow up/Referrals: Marce Borges APRN [Primary Care Provider] - See instructions Activity Restrictions/Add. Instructions Additional Instructions/Restrictions: *Monitor Temp, Over the counter Motrin or Tylenol as directed/as needed Tylenol every 4 hours and Motrin every 6 hours (as long as your family doctor has told you that you can take it) for fever or pain. and straight to ER if unable to lower temp less than 101.0 after medication given *Warm salt water gargles may help to soothe the throat *Throat Lozenges? *Warm fluids like tea with honey may help to soothe the throat? *Sleep elevated *Humidifier/Vaporizer Follow up IMMEDIATELY for new or worsening symptoms or no Noticeable improvement over the next 48-72 hours. 911 for difficulty breathing or swallowing You were tested for today for COVID19 your test result should be back in the next 24 hours, Your results will be available on the [facility] Clinical Impressions Clinical Impression: Encounter for laboratory testing for COVID-19 virus Instructions Patient Instructions: COVID-19 Print Language Print Language: Senegalese Discharge ED Provider: Velia Ewing [facility] [place] HPI General Stated complaint: sore throat cough no taste/smell covid test Mode of Arrival: Ambulatory Source of Information: Patient Limitations: No Limitations Time Seen by Provider: 09/17/24 15:51 Description of Symptoms (Recalled from Triage Doc. by RN): PATIENT C/O SNEEZING, CONGESTION, SORE THROAT, COUGH, AND LOSS OF TASTE AND SMELL FOR APPROX 1 WEEK HEENT Symptoms (Recalled from RN notes): Yes Resp Symptoms (Recalled from RN notes): Yes Skin Symptoms (Recalled from RN notes): No MS Symptoms (Recalled from RN notes): No Functional Status (Recalled from RN notes): WNL History of Present Illness Provider Complaint: Patient states that she wants to get tested for COVID states that she has been sick for about a week with sinus congestion, scratchy throat and loss of taste and smell Related Data Home Medications ?Medication ?Instructions ?Recorded ?Confirmed multivitamin 1 tab PO DAILY Supplement 08/22/22 09/03/24 armodafinil 200 mg tablet 100 mg PO DAILY Shift work disorder 06/15/24 09/03/24 levothyroxine 100 mcg tablet 100 mcg PO DAILY 06/15/24 09/03/24 losartan 100 mg tablet 100 mg PO DAILY 06/15/24 09/03/24 desvenlafaxine succinate 100 mg 100 mg PO DAILY 08/24/24 09/03/24 tablet,extended release 24 hr Previous Rx's ?Medication ?Instructions ?Recorded amlodipine 10 mg tablet 10 mg PO DAILY htn #90 tabs 10/10/23 estradiol 10 mcg vaginal tablet 10 mcg vaginal DAILY dryness #90 10/31/23 (Vagifem) tabs atorvastatin 40 mg tablet 40 mg PO HS #90 tabs 01/02/24 aspirin 81 mg tablet,delayed 81 mg PO DAILY #30 tabs 01/15/24 release (Adult Aspirin Regimen) tizanidine 2 mg tablet 2 mg PO HS muscle spasticity #60 05/14/24 tabs semaglutide (weight loss) 1 mg/0.5 1 mg (0.5 mL) SQ WEEKLY #2 mL 08/24/24 mL subcutaneous pen injector (Wegovy) esterified 1 tab PO ONCE #30 tabs 09/08/24 estrogens-methyltestosterone 1.25 mg-2.5 mg tablet Allergies Allergy/AdvReac Type Severity Reaction Status Date / Time Sulfa (Sulfonamide Allergy Mild I-HIVES Verified 09/03/24 11:28 Antibiotics) (SULFA (SULFONAMIDE ANTIBIOTICS)) bacitracin (From Neosporin Allergy Verified 09/03/24 11:28 ([id number])) neomycin (From Neosporin Allergy Verified 09/03/24 11:28 ([id number])) polymyxin B (From Neosporin Allergy Verified 09/03/24 11:28 ([id number])) isosorbide (From Imdur) AdvReac Severe Verified 09/03/24 11:28 Worker's Comp Is this a Worker's Comp case?: No [facility] Disclaimer: The information contained in this section may have been updated after the patient was seen, as this information can be updated by other users. Medical History BMI 29.0-29.9,adult Generalized anxiety disorder Osteonecrosis Memory loss of unknown cause Hypothyroidism Vitamin D deficiency Hypertension Depression Hyperlipidemia GERD (gastroesophageal reflux disease) Osteopenia Surgical History History of hip replacement H/O breast augmentation X3 1980, 1990, 2006 History of hysterectomy at age 31 due to endometriosis Family History Father Coronary artery disease Heart attack -passed by heart attack at 61 years old -in 1991 Mother , at age 65 of PML Diabetes PML (progressive multifocal leukoencephalopathy), Onset Age: 65 Brother Heart attack cardiac arrest -he was 59 years old -also had a mechanical valve Other Anxiety Depression YUSUF (obstructive sleep apnea) Social History Smoking Status: Current every day smoker tobacco type: e-cigarettes years smoked: 34 second hand exposure: No alcohol intake: current alcohol intake frequency: 3 or more drinks per day substance use type: denies use current occupational status: retired Travel in the last 8 weeks: Inside the [place] household members: spouse housing: house lives independently: Yes marital status: number of children: 0 education level: high school caffeine: Yes special tr needs: No agree to transfusion: No do you feel safe at home: Yes victim of physical abuse: No victim of emotional abuse: No victim of sexual abuse: No would you like helpful sources: No Have you lived/traveled outside [place] in past 30 days?: No Contact w/someone who lives/traveled outside [place] past 30 days?: No Exposure to someone with infectious disease in past 14 days?: No Do you have a fever (greater than 100.4 F or 38 C)?: No Have you tested positive for COVID-19: No Exposed to someone with COVID-19 in past 14 days?: No Do you have a sore throat?: Yes Do you have a cough?: Yes Do you have any weakness?: Yes Do you have any diarrhea?: Yes Are you experiencing any unusual bleeding?: No Do you have any muscle aches/pain?: No Do you have any abdominal pain?: No Are you experiencing loss of taste or smell?: No ROS Obtained: Yes All systems reviewed & no additional complaints except as documented and Yes Systems reviewed as appropriate & no additional complaints except as documented Constitutional Constitutional: Reports system reviewed and no additional complaints, except as documented, Reports as per HPI and Reports body ache ENT Ears, Nose, Mouth, and Throat: Reports system reviewed and no additional complaints, except as documented, Reports as per HPI, Reports nasal congestion, Reports nasal discharge and Reports sore throat Cardiovascular Cardiovascular: Reports system reviewed and no additional complaints, except as documented and Reports as per HPI Respiratory Respiratory: Reports system reviewed and no additional complaints, except as documented, Reports as per HPI and Reports cough Gastrointestinal Gastrointestingal: Reports system reviewed and no additional complaints, except as documented and as per HPI Physical Exam General General appearance: alert and in no apparent distress ENT ENT exam: Present mucous membranes moist Expanded ENT Exam Nose exam: Absent sinus tenderness Throat exam: Present normal inspection Respiratory Respiratory exam: Present normal lung sounds bilaterally; Absent respiratory distress or wheezes Cardiovascular Cardiovascular exam: Present regular rate, normal rhythm and normal heart sounds Neurological Exam Neurological exam: Present alert, oriented X3 and normal gait Medical Decision Making Medical Records Screening: Per USPSTF and CDC recommendations, given the prevalence of disease in our region, it is our hospital?s policy to screen for HIV and viral Hepatitis for all patients aged 18 and over and those with ongoing risk factors. Rony Inquiry Pt receiving controlled substance: No Rony was queried for this patient: No Vital Signs: 09/17/24 15:40 Temperature 98.4 F Temperature Source Oral Pulse Rate [Left Brachial] 93 H Respiratory Rate 18 Blood Pressure [Left Arm] 145/95 H Blood Pressure Mean [Left Arm] 111 Blood Pressure Source [Left Arm] Automatic Cuff Blood Pressure Position [Left Arm] Sitting 02 Sat by Pulse Oximetry 98 Oxygen Delivery Method Room Air Orders (Tests/Meds): ORDERS Category Date Time Status Rapid PCR Covid and Flu A/B Stat Lab 09/17/24 15:36 Received
[2024-09-17 15:55] VITALS: BP 145/95; PULSE 93; RESP 18; TEMP 36.9; O2SAT 98
[2024-09-17 16:23] LABS: Coronavirus 19, PCR Detected (NotDetected)
== END 2024-09-17 15:57 | disposition home or self-care (01) ==
PROVIDERS: Emergency Provider Nurse Practitioner; PCP Nurse Practitioner Family
DX: Z20.822 Contact with and (suspected) exposure to COVID-19 (principal)
CPT/HCPCS: 87636; 99213; G0381

== ENCOUNTER 2024-10-02 15:17 | Outpatient (CLI) | payer MEDICARE, BC, SELFPAY ==
[2024-10-03 08:12] LABS: Testosterone,Total 92 ng/dL (4-50)
== END 2024-10-02 23:59 | disposition home or self-care (01) ==
LOC: LAB 15:18
PROVIDERS: PCP Nurse Practitioner Family; Visit Provider Obstetrics & Gynecology
DX: R53.83 Other fatigue (principal)
CPT/HCPCS: 36415; 84403

== ENCOUNTER 2025-01-22 09:51 | Outpatient (CLI) | payer MEDICARE, BC, SELFPAY ==
[2025-01-22 10:06] LABS: Basophils % 0.3 % (0.1-2.0); Eosinophils # 0.1 Kmm3 (0.0-0.4); Eosinophils % 2.2 % (0.1-12.0); Hemoglobin 13.5 g/dL (12.2-16.2); Lymphocytes % 33.8 % (10-50); Mean Corpuscular HGB Conc 32.9 g/dL (31.8-35.4); Mean Corpuscular Hemoglobin 30.3 pg (27.0-31.2); Mean Corpuscular Volume 92.1 fl (81-99); Monocytes # 0.5 K/mm3 (0.1-1.0); Monocytes % 7.5 % (1.7-9.3); Neutrophils # 3.3 K/mm3 (1.8-7.8); Nucleated Red Blood Cells # 0 10^3/uL; Nucleated Red Blood Cells % 0 %; Platelet Count 311 K/mm3 (142-424); Red Blood Count 4.45 M/mm3 (4.20-5.40); Red Cell Distribution Width 13.1 % (11.5-17.5); Red Cell Distribution Width-SD 43.9 fL
[2025-01-22 10:48] LABS: Alanine Aminotransferase 19 U/L (12-78); Albumin Level 4.4 g/dl (3.5-5.0); Albumin/Globulin Ratio 1.3 (1.1-1.8); Alkaline Phosphatase 69 U/L (38-126); Anion Gap 9.5 mEq/L (5-15); Aspartate Amino Transferase 26 U/L (14-36); Bilirubin,Total 0.4 mg/dl (0.2-1.3); Blood Urea Nitrogen 14 mg/dl (7-17); Calcium 9.5 mg/dl (8.4-10.2); Carbon Dioxide 26 mmol/L (22.0-30.0); Chloride 103 mmol/L (98-107); Chol/HDL Ratio 2.2 (1-3.5); Cholesterol 125 mg/dl (140-200); Estimated Glomerular Filt Rate 65 ml/min (>60); GFR (African American) 79 ML/MIN (>60); Globulin 3.3 g/dL (1.3-3.2); Glucose 106 mg/dl (74-100); HDL Cholesterol 57 mg/dl (40-60); Potassium 4.5 mmoL/L (3.5-5.1); Sodium 134 mmol/L (136-145); Total Protein,Serum 7.7 g/dl (6.3-8.2); Triglycerides 66 mg/dl (30-150); VLDL Cholesterol 13 mg/dL (0-40)
[2025-01-22 10:58] LABS: Direct LDL Cholesterol 47.08 mg/dL (100-129)
== END 2025-01-22 23:59 | disposition home or self-care (01) ==
LOC: LAB 09:53
PROVIDERS: PCP Nurse Practitioner Family; Visit Provider Obstetrics & Gynecology
DX: R79.89 Other specified abnormal findings of blood chemistry (principal)
CPT/HCPCS: 80053; 80061; 85025

== ENCOUNTER 2025-02-16 14:25 | Outpatient (CLI) | payer MEDICARE, BC, SELFPAY ==
[2025-02-18 13:16] LABS: Free Testosterone (Direct) 0.7 pg/mL (0.0-4.2); Testosterone, Total, LC/MS 8.7 ng/dL (.)
== END 2025-02-16 23:59 | disposition home or self-care (01) ==
LOC: LAB 14:26
PROVIDERS: PCP Nurse Practitioner Family; Visit Provider Obstetrics & Gynecology
DX: R79.89 Other specified abnormal findings of blood chemistry (principal); R68.82 Decreased libido
CPT/HCPCS: 36415; 84402; 84403

== ENCOUNTER 2025-03-23 11:29 | Outpatient (CLI) | payer MEDICARE, BC, SELFPAY ==
--- OUTSIDE RECORDS SUMMARY | 2025-03-19 09:20 | XMS_ITS ---
Author Organization [facility] Address [address] [place] [address] Care Team Providers Care Knuckler Name Role Phone unknown, Unknown Primary Care Provider Unavailab ivis DilipangelitoJuniorcarole Unavailable [phone] Chaitanya Brown Unavailable [phone] Allergies Allergen (clinical drug ingredient) Drug/Non Drug Allergy documented on EMR Reaction Allergy Type Onset Date Status Neosporin Unknown Drug Allergy Active Substance with sulfonamide structure and antibacterial mechanism of action (substance) Sulfa Antibiotics Unknown Drug Allergy Active REASON FOR VISIT Interested in BHOT Medications Medication SIG (Take, Route, Frequency, Duration) Notes Start Date End Date Status amLODIPine Besylate 10 MG Oral for 90 Days Active tiZANidine HCl 2 MG TAKE 1 OR 2 TABLETS BY MOUTH ONCE DAILY AT BEDTIME NEEDED Oral for 30 Days PRN Active Metaxalone 800 MG Oral for 45 Days Active Cyclobenzaprine HCl 10 MG Oral for 90 Days PRN Active Desvenlafaxine Succinate ER 50 MG TAKE ONE TABLET BY MOUTH DAILY Oral for 30 Days Active Synthroid 100 MCG Oral for 90 Days Active Est Estrogens-Methyltest 1.25-2.5 MG TAKE 1 TABLET BY MOUTH ONCE DAILY Oral for 90 Days Active Estradiol 10 MCG Vaginal for 90 Days Active Losartan Potassium 100 MG Oral for 90 Days Active Social History Tobacco Use: Social History Observation Description Date Details (start date - stop date) Current Smoker NA - NA Tobacco Control (Standard) Question Answer Notes Tobacco use: Current smoker How often do you smoke cigarettes? Every day How many cigarettes a day do you smoke? 5 or les s How soon after you wake up do you smoke your fir st cigarette? Within 5 minutes Are you interested in quitting? Not ready to abdiaziz t Additional Findings: Tobacco user e-cigarette AUDIT-C (Standard) Question Answer Notes Did you have a drink contain ing alcohol in the past year? Yes How often did you have a dri nk containing alcohol in the past year? Daily or almost daily (4 points) How many drinks did you have on a typical day when you were drinking in the past year? 5 or 6 drinks (2 points) How often did you have six o r more drinks on one occasion in the past year? 4 or more times a week (4 points) Points 10 Interpretation Positive Problems Problem Type SNOMED Code ICD Code Onset Dates Problem Status W/U Status Risk Notes Problem Osteoporosis (44131793) Osteoporosis (M81.0) Active confirmed Problem Essential hypertension (I10) Active confirmed Problem Anxiety state (453261066) Anxiety state (F41.1) Active confirmed Problem Chronic fatigue syndrome (05829603) Chronic fatigue (R53.82) Active confirmed Vital Signs Blood pressure systolic 138 mm Hg 03/19/20 25 Blood pressure diastolic 97 mm Hg 025 Height 63 in 03/19/2025 Weight 173.1 lbs 03/19/2025 BMI 30.66 BMI 03/19/2025 Encounters Encounter Location Date Provider Diagnosis [facility] [address] [place] [address] 03/19/2025 Chaitanya Brown Chronic fatigue R53.82 Assessments Encounter Date Diagnosis (ICD Code) Assessment Notes Treatment Notes Treatment Clinical Notes Section Notes 03/19/2025 Chronic fatigue (ICD-10 - R53.82) Plan Of Treatment Pending Test Test Name Order Date Prolactin 03/19/2025 TIBC ( Total Iron Binding Capacity) 02/22 Ferritin 03/19/2025 DHEA-S 03/19/2025 Iron 03/19/2025 Human Chorionic Gonadotropin (HCG) Serum 03/19/2025 homocysteine 03/19/2025 homocysteine 03/19/2025 CBC with Differential 03/19/2025 THYROID PANEL, FREE T3 03/19/2025 THYROID PANEL, FREE T4 03/19/2025 CMP 03/19/2025 Hemoglobin A1c w Est Avg/Mean Gluc 03/19 Estradiol 03/19/2025 Testosterone, Total 03/19/2025 Thyroglobulin Panel 03/19/2025 Thyroid Peroxidase (TPO) Ab 03/19/2025 Reverse T3 03/19/2025 LIPID PANEL 03/19/2025 HS CRP 03/19/2025 PROGESTERONE 03/19/2025 VITAMIN B12 03/19/2025 FSH 03/19/2025 LH 03/19/2025 TSH 03/19/2025 SEX HORMONE BINDING GLOBULIN 03/19/2025 1, 25 OH vitamin D 03/19/2025 Cortisol, Total 03/19/2025 Next Appt Details Follow Up: PRN pending lab r eceipt, Reason: BHRT Progress Notes * Karen CASTANEDA LDOB:1969 (54 yo F)Acc No.[id number]:03/19/2025 Patient: Karen REESE Provider: Cain Brown PA-C :1970 A ge:54 Y S ex:Female Date:03/19/2025 Address:[address] [place] [address], [place], [id number] Pcp:Unknown unknown Check Out:02:33 PM EST Subjective: * Chief Complaints: * 1 . Interested in BHOT. * HPI: B HRT: Female Health Assessment P hysical Exhaustion (fatigue, lack of energy, stamina, or motivation) S evere (3 points) S leep Problems (difficulty falling asleep or sleeping through the night) V yarelis Severe (4 points) I rritability (mood swings, feeling aggressive, angers easily) M ild (1 point) A nxiety (feeling overwhelmed, feeling panicky, or feeling nervous) M oderate (2 points) D ecline in drive or interest (loss of zest for life, feeling down or sad) S evere (3 points) J oint and muscular symptoms (joint pain, muscle weakness, poor recovery after exercise) S evere (3 points) D ifficulty with memory (concentration, finding the right word, or retaining information) V yarelis Severe (4 Points) V aginal dryness or difficulty with sexual intercourse V yarelis Severe (4 points) S exual Problems (change in desire, activity, orgasm, and/or satisfaction) V yarelis Severe (4 points) S weating (night sweats or increased episodes of sweating) V yarelis Severe (4 points) H ot Flashes (burst that starts in chest and lasts for short duration) M oderate (2 points) H air loss, thinning, or change in texture of hair S evere (3 points) F eeling cold all the time, having cold hands or feet N one (0 points) H eadache or migraines (increase in frequency or intensity) N one (0 points) W eight (difficulty losing weight despite diet/exercise) V yarelis Severe (4 points) B ladder problems (difficulty in urinating, increased need to urinate, incontinence) N one (0 points) P oints 4 1 G oals For Optimizing Hormones: 1 . Increased libido. 2. Ability to orgasm. 3. Increased energy/muscle tone/bone health. T aking Probiotics? N o T aking [place] 3? N o C urrently or Trying to Conceive??No U terus Present? N o Complete hysterectomy. S till having a Menstrual Cycle? N o T ubal Ligation? N o B irth Control Used: N one. S moker? Y es Vape. C urrently on HRT? Y es L ist HRT: 1 0 mcg estradiol vaginal tab1.25-2.5 mg estradiol-methyltestosterone tab C urrently on Thyroid Meds? Y es M edication, dosage, and route: S ynthroid/levothyroxine 100 mg PO. C urrently on Statins? N o H istory of Breast Cancer? N o Mammogram compeleted within the past 12 months. H istory of Epilepsy or Seizures? N o H istory of Endometriosis? Y es H istory of Fibrocystic Breast Disease? N o H istory of PCOS? N o H istory of Leiomyoma or Endometrial Polyps??No H as Hayden's Thyroiditis? N o P reexisting Conditions Experienced: H ot Flashes 03/19/25 - Current HRT: 10 mcg estradiol vaginal tab, 1 .25-2.5 mg estradiol-methyltestosterone tab. The latter initially helped a year ago when started but tapered after a week. discuss drinking: Notes she has drank as much as is listed for most of her adult life, denies role played in strain on her marriage. hx of osteoporosis: takes calcium and vitamin D. hysterectomy 2/2 endometriosis. 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 declines Prolera for concern of black box warning for osteonecrosis of jaw. 2-3 weeks without estradiol as lumpectomy in right breast several years ago, turned to be migrated lymph node. Plan: [facility] in [place], last lab work completed 02/16/25. Will request these, once these are received I want to cross reference with our pre-RT female panel so we aren't doubling down on what was already completed. Patient requested that any additional labs be sent to [facility] to complete. Once we've received those we will plan for moving forward with pellets, Jackie spoke with her regarding pricing for the pellets and DIM supplement. * Medical History: O steoporosis, Essential hypertension, Anxiety state. * Surgical History: H ysterectomy 2001, Breast augmentation x 3 1996, Hip Replacement- Right 2023, Cyst Removal- R thumb , Exploratory Surgery- Uterus 2000. * Hospitalization/Major Diagno stic Procedure: H ypertension Episode 2008. * Family History: F ather: diagnosed with Heart Disease. Mother-PML. * Social History: G eneral: P ersonal History M arital status M arried / Partnered W hat is your work status? R etired T obacco Use: T obacco Control (Standard) T obacco use: C urrent smoker H ow often do you smoke cigarettes? E very day H ow many cigarettes a day do you smoke? 5 or less H ow soon after you wake up do you smoke your first cigarette? W ithin 5 minutes A re you interested in quitting? N ot ready to quit A dditional Findings: Tobacco user e -cigarette D rug/Alcohol: A LÁZARO-C (Standard) D id you have a drink containing alcohol in the past year? Y es H ow often did you have a drink containing alcohol in the past year? D aily or almost daily (4 points) H ow many drinks did you have on a typical day when you were drinking in the past year? 5 or 6 drinks (2 points) H ow often did you have six or more drinks on one occasion in the past year? 4 or more times a week (4 points) P oints 1 0 I nterpretation P ositive * Medications: T aking Estradiol 10 MCG Tablet Vaginal , Taking Losartan Potassium 100 MG Tablet Oral , Taking Desvenlafaxine Succinate ER 50 MG Tablet Extended Release 24 Hour TAKE ONE TABLET BY MOUTH DAILY Oral , Taking Synthroid 100 MCG Tablet Oral , Taking Est Estrogens-Methyltest 1.25-2.5 MG Tablet TAKE 1 TABLET BY MOUTH ONCE DAILY Oral , Taking amLODIPine Besylate 10 MG Tablet Oral , Taking tiZANidine HCl 2 MG Tablet TAKE 1 OR 2 TABLETS BY MOUTH ONCE DAILY AT BEDTIME NEEDED Oral , Notes to Pharmacist: PRN, Taking Metaxalone 800 MG Tablet Oral , Taking Cyclobenzaprine HCl 10 MG Tablet Oral , Notes to Pharmacist: PRN, Discontinued Wegovy 1.7 MG/0.75ML Solution Auto-injector Subcutaneous , Medication List reviewed and reconciled with the patient * Allergies: S ulfa Antibiotics, Neosporin. Objective: * Vitals: H t:63in, Wt:173.1lbs, BMI:30.66BMI, BP:138/97mm Hg, HR:84/min. Assessment: * Assessment: 1. C hronic fatigue - R53.82 (Primary) Plan: * Treatment: * Follow Up: P RN pending lab receipt (Reason: BHRT) * Billing Information: * Visit Code: * Procedure Codes: Care Plan Details* * Electronic signature of Forest or TONO Brown PA-C on 03/23/2025 at 11:33 AM EDT Sign off status: Pending * Provider: Cain Brown PA-C Date: 0 03/19/2025 Generated for Terry winchester/Domitila/Kelsie on: 0 03/23/2025 11:33 AM EDT History and Physical Notes * HPI (History of Present Illness) Category Sub-Category Detail Notes Category Not es BHRT Female Health Assessment Physica l Exhaustion (fatigue, lack of energy, stamina, or motivation): Severe (3 points) 03/19/25 - Current HRT: 10 mcg estradiol vaginal tab, 1.25-2.5 mg estradiol-methyltestoste ghazal tab. The latter initially helped a year ago when started but tapered after a week. discuss drinking: Notes she has drank as much as is listed for most of her adult life, denies role played in strain on her marriage. hx of osteoporosis: takes calcium and vitamin D. hysterectomy 2/2 endometriosis. 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 declines Prolera for concern of black box warning for osteonecrosis of jaw. 2-3 weeks without estradiol as lumpectomy in right breast several years ago, turned to be migrated lymph node. Plan: [facility] [place], last lab work completed 02/16/25. Will request these, once these are received I want to cross reference with our pre-BHRT female panel so we aren't doubling down on what was already completed. Patient requested that any additional labs be sent to [facility] to complete. Once we've received those we will plan for moving forward with pellets, Jackie spoke with her regarding pricing for the pellets and DIM supplement. Sleep Problems (difficulty f alling asleep or sleeping through the night): Very Severe (4 points) Irritability (mood swings, f eeling aggressive, angers easily): Mild (1 point) Anxiety (feeling overwhelmed , feeling panicky, or feeling nervous): Moderate (2 points) Decline in drive or interest (loss of zest for life, feeling down or sad): Severe (3 points) Joint and muscular symptoms (joint pain, muscle weakness, poor recovery after exercise): Severe (3 points) Difficulty with memory (conc entration, finding the right word, or retaining information): Very Severe (4 Points) Vaginal dryness or difficult y with sexual intercourse: Very Severe (4 points) Sexual Problems (change in d esire, activity, orgasm, and/or satisfaction): Very Severe (4 points) Sweating (night sweats or in creased episodes of sweating): Very Severe (4 points) Hot Flashes (burst that star ts in chest and lasts for short duration): Moderate (2 points) Hair loss, thinning, or rainey ge in texture of hair: Severe (3 points) Feeling cold all the time, h aving cold hands or feet: None (0 points) Headache or migraines (incre ase in frequency or intensity): None (0 points) Weight (difficulty losing we ight despite diet/exercise): Very Severe (4 points) Bladder problems (difficulty in urinating, increased need to urinate, incontinence): None (0 points) Points: 41 Goals For Optimizing Hormones:: 1. Incre ased libido. 2. Ability to orgasm. 3. Increased energy/muscle tone/bone health. Taking Probiotics?: No Taking [place] 3?: No Currently or Trying to Conceive?: No Uterus Present?: No Complete hysterectom y. Still having a Menstrual Cycle?: No Tubal Ligation?: No Control Used:: None. Smoker?: Yes Vape. Currently on HRT?: Yes List HRT:: 10 mcg estradiol vaginal tab1.25-2.5 mg estradiol-methyltestosterone tab Currently on Thyroid Meds?: Yes Medication, dosage, and route:: Synthroid/levothyroxine 100 mg PO. Currently on Statins?: No History of Breast Cancer?: No Mammogram compeleted within the past 12 months. History of Epilepsy or Seizures?: No History of Endometriosis?: Yes History of Fibrocystic Breast Disease?: No History of PCOS?: No History of Leiomyoma or Endo metrial Polyps?: No Has Hayden's Thyroiditis?: No Preexisting Conditions Exper ienced:: Hot Flashes
--- OUTSIDE RECORDS SUMMARY | 2025-03-23 11:33 | XMS_ITS | Data Portability ---
Author Organization [facility] SHELLEY [place] [facility] Address [address] [place] [address] Care Team Providers Care Domestic Maid Name Role Phone LANDON SEYMOUR Referring Provider Assessment Encounter Date Assessment Date Assessment LastModified by Organization Details LastModified Time 07/28/2019 07/28/2019 Discussion was had with patient in clinic today regarding diagnosis and treatment options. I explained that we could continue to monitor the mucous cyst over time and proceed with surgery if it becomes more symptomatic versus proceeding with surgical excision of the mucous cyst at this time if it is currently bothersome. I advised the patient that I would not recommend an attempted aspiration as this can lead to a draining sinus tract and/or possible induction of infection. At this time patient elected to continue with nonoperative management and observation of the mucous cyst over time. Patient will contact our office should the mucous cyst become more symptomatic/bot hersome or if there is development of skin breakdown and/or drainage from the cyst site to discuss surgical intervention at that time. Patient will follow-up on an as-needed basis should additional questions/monica rns arise. [email or web address] Not available 07/29/2019 08:27:16 Plan of Treatment Reminders Order Date Submit Date Provider Last Modified By Organization Details Last Modified Time Details Appointments None record ed. Lab None record ed. Referral None record ed. Procedures None record ed. Surgeries None record ed. Imaging None record ed. Medication Orders None record ed. Patient TargetsNo targets recorded. Patient InstructionsNo instructions recorded. Reason for Referral None Reported. Procedures Surgical History Date Name Laterality Status Provider Name and Address Organization Details Recorded Time Other completed [facility] 07/28/2019 08:49:57 Other completed [facility] 07/28/2019 08:50:08 Orthopedic Surgery completed [facility] 07/28/2019 08:50:20 Other completed [facility] 07/28/2019 08:50:33 Imaging Results None recorded. Procedure Notes None recorded. Medical Equipment None Reported. Allergies Allergen ID Allergen Name Allergen Category Reaction Reaction Severity Criticality Documentation Date Start Date Code Code System Note Provider Name and Address Organization Details Recorded Time [id number] Substance with sulfonami de structure and antibacte rial mechanism of action (substanc e) medicatio n hives Not available Not available 07/28/2019 [id number] SNOMED [facility] 9 08:47:54 Medications Name Sig Start Date Stop Date Status Note LastModified by Organization Details LastModified Time alendronate 70 mg tablet TAKE 1 TABLET (70 MG) WEEKLY FOR BONE HEALTH active Not Available Not Available No t Available estradiol active Not Available Not Merlyn ilable Not Available levothyroxine active Not Available Not Available Not Available amlodipine active Not Available Not Av ailable Not Available losartan active Not Available Not Avai lable Not Available Skelaxin active Not Available Not Avai lable Not Available Flexeril active Not Available Not Avai lable Not Available Vitals Date Recorded Body height Body mass index (BMI) Body weight Systolic blood pressure Diastolic blood pressure Provider Name and Address Organization Details Last Updated DateTime 07/28/2019 160.02 cm 28.3 kg/m2 15581.78 g 128 mm[Hg] 88 mm[Hg] [facility] 9 08:47:39 Social History Question Answer Notes LastModified by Organizat ion Details LastModified Time Tobacco Smoking Status Never Smoker [facility] 07/28/2019 08:48:58 What Is Your Level Of Caffeine Consumption? Moderate [email or web address] Information not available 07/28/2019 Which Of Your Hands Is Dominant? Right [email or web address] Information not available 07/28/2019 Sex: Unknown Functional Status Question Answer Note LastModified by Organizat [facility] Details LastModified Time Do you use any illicit or recreational drugs? No Information not available 07/28/2019 What is your level of alcohol consumption? Moderate [email or web address] Information not available 07/28/2019 Are you currently employed? Yes [email or web address] Information not available 07/28/2019 What is your occupation? [employer] [email or web address] Information not available 07/28/2019 Do you or have you ever used e-cigarettes or vape? Current user of electronic cigarettes Information not available 07/28/2019 Mental Status None recorded. Family History Nothing Reported. Medical History Condition Response Gout N Other N Kidney Stones N COPD N Pneumonia N Arthritis N Blood Clot N Cancer N Stroke N Kidney Disease N Heart Conditions N Migraines N Skin Problems N Rheumatic Fever N Bleeding Disorder N Tuberculosis N Genetic Disorder N AIDS/HIV N Asthma N Included as Review of Systems Y Anxiety/Depression N Thyroid Disease Y Hernia N Glaucoma N Anesthesia Complications N Blood Thinners N Alcohol Overuse/Alcohol Abuse N High Cholesterol N Liver Disease N Allergies/Hayfever N Immune System Disorder N Heart Attack ([place]) N Mental Illness N Neurological Problems N Diabetes N Seizures/Epilepsy N Sleep Apnea N Hypertension Y Osteoporosis N Gynecological HistoryNo gynecological history recorded. Obstetrics History GPAL:G 0 P 0 0 0 0 Past Encounters Encounter ID Performer Location Encounter Start Date Encounter Closed Date Diagnosis/Indication Diagnosis SNOMED-CT Code Diagnosis ICD10 Code Diagnosis Note [id number] KWABENA GOLDEN PA-C [facility] [address] [place] [address] 07/28/2019 08:36:50 08/03/2019 15:57:47 Digital mucous cyst [id number] M71.342 DOI: 04/14/19 XRs of the left index finger reviewed on disc reveal no evidence of fracture or dislocatio n. Mild degenerati ve changes at the DIP joint. Health Concerns Section Related Observation LastModified by Organization Detai ls LastModified Time None Recorded Concern Status LastModified by Organization Details LastModified Time None Recorded Advance Directives Directive None Recorded Payers Insurance Date Sequence Insurance Name Policy Number Policy Crisostomo Covered Member ID Crisostomo Member ID Guarantor Name 07/28/2019 [facility] Rae Chasidy Castaneda Notes Date Note Type Note Provider Name and Address Organization Details Recorded Time 07/28/2019 text/html Hand SurgeryRepo rted bypatient.Hand Dominance:right Location:left; Index finger Severity:pain level 0/10 Duration:date of injury: 04/14/2019 Previous Surgery:none Work Related:yes Working:regular duty; [employer] department[employer]: Karen is a pleasant 49 yo [employer] employee who presents today for further evaluation of left index finger, consultation at the request of Dr. Landon Seymour. She states she sustained a laceration to the tip of her left index finger at work on 04/14/19. She was treated by [facility] medical providers and her laceration healed well. She has resumed full duties at work without issue. Today she presents for further evaluation of a knot that has developed on her index finger. She states the knot is not bothersome unless firm direct pressure is placed on it. She states at this time the knot is not causing interference with her ADLs, activities desired or job duties. She denies drainage from site, she denies signs of infection. KWABENA GOLDEN PA-C [facility] [place], [address], [facility] 07/29/2019 08:29:37 OBGyn Episode No OBEpisode recorded.
--- OUTSIDE RECORDS SUMMARY | 2025-03-23 11:33 | XMS_ITS | Clinical Summary ---
Author Organization [facility] Address [address] [place] [address] Care Team Providers Care Sort Worker Name Role Phone JonyMarce Courtney XAVIER Primary Care Provider Allergies Active Allergy Reactions Criticality Noted Date Comments Sulfa Drugs Hives Medium 05/21/2018 Sulfa drugs - rash Medications amLODIPine (Norvasc) 10 MG tablet Take 1 tablet (10 mg) by mouth 1 (one) time each day. 3 Active Synthroid 100 MCG tablet Take 1 tablet (100 mcg) by mouth 1 (one) time each day before breakfast. 3 Active losartan (Cozaar) 100 MG tablet Take 1 tablet (100 mg) by mouth 1 (one) time each day. Active gabapentin (Neurontin) 100 MG capsule Take 1 capsule (100 mg) by mouth 3 (three) times a day. If this medication makes you drowsy you may take it only at bedtime 30 capsule 3 Active Additional Information Patient not taking.Reported on 08/20/2023 acetaminophen (Tylenol Extra Strength) 500 MG tablet Take 2 tablets (1,000 mg) by mouth every 8 (eight) hours. 100 tablet 3 Active Additional Information Patient not taking.Reported on 12/31/2023 traMADol (Ultram) 50 MG tablet Take 1 tablet (50 mg) by mouth every 4 (four) hours if needed for moderate pain. Take 1 or 2 tablets every 4-6 hours as needed for pain 60 tablet 3 Active Additional Information Patient not taking.Reported on 08/20/2023 oxyCODONE (Roxicodone) 5 MG immediate release tablet Take 1 tablet (5 mg) by mouth every 6 (six) hours if needed for severe pain. 30 tablet 3 Active Additional Information Patient not taking.Reported on 08/20/2023 traMADol (Ultram) 50 MG tablet Take 1 tablet (50 mg) by mouth every 6 (six) hours if needed for severe pain. 90 tablet 3 Active Additional Information Patient not taking.Reported on 08/20/2023 oxyCODONE (Roxicodone) 5 MG immediate release tablet Take 1 tablet (5 mg) by mouth every 4 (four) hours if needed for severe pain. 15 tablet 3 Active Additional Information Patient not taking.Reported on 08/20/2023 estradiol (Vagifem) 10 MCG tablet vaginal tablet 4 Active Aspirin Low Dose 81 MG EC tablet 4 Active atorvastatin (Lipitor) 40 MG tablet 4 Active desvenlafaxine (Pristiq) 100 MG 24 hr tablet 4 Active estrogens, conjugated,-met hylTESTOSTERone (EEMT,Covaryx) 1.25-2.5 MG tablet Take 1 tablet by mouth 1 (one) time each day. 4 Active tiZANidine (Zanaflex) 2 MG tablet TAKE 1 OR 2 TABLETS BY MOUTH ONCE DAILY AT BEDTIME NEEDED 4 Active armodafinil (Nuvigil) 200 MG tablet TAKE 1 TABLET BY MOUTH ONCE DAILY IN THE MORNING FOR WORK SHIFT DISORDER 4 Active Active Problems Problem Noted Date Diagnosed Date Primary localized osteoarthritis of right hip Primary osteoarthritis of one hip, right 023 Encounters Date Type Department Care Team Description 01/05/2025 1:30 PM EDT Office Visit Medical Office Building [facility] [address] [facility], [address] [place] [address] Sergio Rose MD Hip pain, right (Primary Dx) 01/05/2025 1:25 PM EDT - 01/05/2025 11:59 PM EDT Hospital Encounter Medical Office Building Radiology [address] [place] [address] Hip pain, right Discharge Disposition: Home or Self Care 01/05/2025 Travel from Last 3 Months Family History Medical History Relation Name Comments Heart attack Father Fibromyalgia Mother Hypertension Mother PML Mother Relation Name Status Comments Father Mother Social History Tobacco Use Types Packs/Day Years Used Date Smoking Tobacco: Former Cigarettes 1 34 1 7 - 2020 Smokeless Tobacco: Never Tobacco Cessation:Counseling Given: Not Answered Alcohol Use Standard Drinks/Week Comments Not Currently 0 (1 standard drink = 0.6 oz pur e alcohol) PHQ-2 Answer Date Recorded Patient Health Questionnaire-2 Score 0 12/31/2023 CAGE ASSESSMENT Answer Date Recorded Cage unable to access Not on file 07/31/2023 Cage max number of drinks Not on file 2022 Cage Beverages a week Not on file 07/31/2023 Have you ever felt you should CUT down on your d rinking? 0 07/31/2023 Have you been ANNOYED by people criticizing your drinking? 0 07/31/2023 Have you felt GUILTY about your drinking? 0 07/31/2023 Have you had a drink first t juliane in the morning (EYE-ENTRY PROCESSOR) to steady your nerves or to get rid of a hangover? 0 07/31/2023 CAGE Questionnaire Score 0 023 Comments No Sex and Gender Information Value Date Recorded Sex Assigned at Not on file Legal Sex Female 8:06 PM EDT Gender Identity Not on file Sexual Orientation Not on file Last Filed Vital Signs Vital Sign Reading Time Taken Comments Blood Pressure 115/68 06/11/2024 2:37 PM EDT Pulse 77 06/11/2024 2:37 PM EDT Temperature 36.8 C (98.2 F) 06/11/2024 1:45 PM EDT Respiratory Rate 18 06/11/2024 2:37 PM EDT Oxygen Saturation 96% 06/11/2024 2:37 PM EDT Inhaled Oxygen Concentration - - Weight 74.8 kg (165 lb) 06/11/2024 1:45 PM EDT Height 160 cm (5' 3 ) 06/11/2024 1:45 PM EDT Body Mass Index 29.23 06/11/2024 1:45 PM EDT Plan of Treatment Health Maintenance Due Date Last Done Comments [facility]-Bone Density Scan 1969 [facility]-HIV Screening 1969 [facility]-Hepatitis C Screening 1969 [facility]-Medicare Annual Wellness (AWV) 1969 [facility]-Infant/Child/Adol SDOH Screenings 1969 [facility]- SDOH Screenings 1987 [facility]-Adult SDOH Screenings 1987 [facility]-Hepatitis B Vaccines (1 of 3 - 19+ 3-dose series) 1988 CT Colonography 2014 Colonoscopy 2014 FIT-DNA 2014 FIT 2014 FOBT 2014 Sigmoidoscopy 2014 [facility]-Colorectal Cancer Screening 2014 [facility]-Breast Cancer Screening 2019 [facility]-Lung Cancer Screening 2019 [facility]-Pneumococcal Vaccine: 50+ Years (1 of 1 - PCV) 2019 [facility]-Zoster Vaccines (1 of 2) 2019 [id number] Vaccine (4 - season) 2024 07/14/2021, 06/16/2021, 12/13/2020 [facility]-Depression Screening 12/30/2024 12/31/2023 [facility]-Influenza Vaccine (Season Ended) 2025 07/05/2016 [facility]-DTaP,Tdap,and Td Vaccines (2 - Td or Tdap) 04/14/2029 04/14/2019 [facility]-Obesity Intervention Completed 025, 06/11/2024, 05/06/2024, Additional history exists HPV Vaccines Aged Out No longer eligi ble based on patient's age to complete this topic [facility]-HIB Vaccines Aged Out No longer e ligible based on patient's age to complete this topic [facility]-Hepatitis A Vaccines Aged Out No longer eligible based on patient's age to complete this topic [facility]-IPV Vaccines Aged Out No longer e ligible based on patient's age to complete this topic [facility]-Rotavirus Vaccines Aged Out No lo nger eligible based on patient's age to complete this topic Medical Devices Implanted Type Area Oceanographer Assistant Device Identifier Shelf Expiration Date Model / Serial / Lot Shell Trident Ii Cluster 46mm - [id number] Implanted:Qty: 1 on 07/31/2023 by Sergio Rose MD at [facility] Hip Right: Hip [employer] ([facility])-139 68 05/02/2028 [id number] / / [id number] Liner Mdm Cocr 36mm C - [id number] Implanted:Qty: 1 on 07/31/2023 by Sergio Rose MD at [facility] Hip Right: Hip [employer] [facility] ([facility])-139 68 02/27/2028 [id number] / / [id number] Insert X3 Mdm Restor 36 Mm Od 22 Mm Id X 6.7 Mm - [id number] Implanted:Qty: 1 on 07/31/2023 by Sergio Rose MD at [facility] Hip Right: Hip [facility] ([facility])-139 68 09/05/2027 [id number] / / [id number] Hip Size 4 Accolade Ii 132 Deg - [id number] Implanted:Qty: 1 on 07/31/2023 by Sergio Rose MD at [facility] Hip Right: Hip [facility] ([facility])-139 68 06/14/2028 [id number] / / [id number] Chg Head 22.2mm Std Lfit V40 - [id number] Implanted:Qty: 1 on 07/31/2023 by Sergio Rose MD at [facility] Hip Right: Hip [facility] ([facility])-139 68 06/02/2028 [id number] / / [id number] Screw 6.5mm Trident Low Profile Hex 25mm - [id number] Implanted:Qty: 1 on 07/31/2023 by Sergio Rose MD at [facility] Screw Right: Hip [facility] ([facility])-139 68 05/01/2028 [id number] / / [id number] Procedures Procedure Name Priority Date/Time Associated Diagnosis Comments XR HIP RIGHT 2 OR 3 VIEWS Routine 01/05/2025 1:40 PM EDT Hip pain, right from Last 3 Months Results * 1- Year Post-Op: XR Hip (AP Pelvis Standing / Cross - Table Lateral) (01/05/2025 1:40 PM EDT) Anatomical Region Laterality Modality Lower Extremities, Hip Right Digital R adiography Impressions 01/05/2025 2:09 PM EDT Right total hip arthroplasty. Subtle lucency around the tip of the femoral stem. Attention on follow-up imaging is recommended. There is some spotwelding along the lateral aspect of the tip of the femoral stem. CRITICAL RESULT: No. COMMUNICATION: Per this written report. Drafted by Renato Vargas MD on 01/05/2025 2:07 PM Final report signed by Renato Vargas MD on 01/05/2025 2:09 PM Narrative 01/05/2025 2:09 PM EDT CLINICAL INDICATION: Post-Op TECHNIQUE: XR HIP RIGHT 2 OR 3 VIEWS COMPARISON: 12/31/2023 FINDINGS: Right total hip arthroplasty. There is subtle lucency around the tip of the femoral stem. Continued left hip osteophytosis. Sacroiliac joint and lumbosacral degenerative changes. Procedure Note Renato Vargas MD - 01/05/2025 CLINICAL INDICATION: Post-Op TECHNIQUE: XR HIP RIGHT 2 OR 3 VIEWS COMPARISON: 12/31/2023 FINDINGS: Right total hip arthroplasty. There is subtle lucency around the tip ofthe femoral stem. Continued left hip osteophytosis. Sacroiliac joint andlumbosacral degenerative changes. IMPRESSION: Right total hip arthroplasty. Subtle lucency around the tip of the femoralstem. Attention on follow-up imaging is recommended. There is somespotwelding along the lateral aspect of the tip of the femoral stem. CRITICAL RESULT: No. COMMUNICATION: Per this written report. Drafted by Renato Vargas MD on 01/05/2025 2:07 PM Final report signed by Renato Vargas MD on 01/05/2025 2:09 PM us Sergio Rose MD IMG XR PROCEDURES Final R esult from Last 3 Months Insurance [employer] MEDICARE ANTHMAN[employer]EL Advance Directives * Full Code (Latest Code Status on File) Date Activated Date Inactivated Comments 07/31/2023 7:53 AM 08/01/2023 6:25 PM Question Answer Comments Patient has decision-making capacity? Yes Care Teams Sort Worker Relationship Specialty Start Date End Date Marce Borges, IDEA WORKER [address] [place] [address] PCP - General 05/02/23
--- OUTSIDE RECORDS SUMMARY | 2025-03-23 11:33 | XMS_ITS | Clinical Summary ---
Author Organization [facility] Address [address] [place] [address] Phone [email or web address] Care Team Providers Care General Operator Name Role Phone Duke Ramsey MD Primary Care Provider [phone] Allergies Active Allergy Reactions Criticality Noted Date Comments Other 05/03/2020 Neosporin Sulfa Antibiotics 05/21/2018 Sulfa drugs - rash Medications cyclobenzaprine (FLEXERIL) 10 MG tablet 04/24/2018 Active levothyroxine (SYNTHROID, LEVOTHROID) 100 MCG tablet 04/24/2018 Active losartan (COZAAR) 100 MG tablet 04/28/2018 Active metaxalone (SKELAXIN) 800 MG tablet 03/20/2018 Active amLODIPine (NORVASC) 10 MG tablet TAKE 1 TABLET BY MOUTH BY MOUTH ONCE DAILY 05/04/2020 Active estradiol (ESTRACE) 1 MG tablet TAKE 1 TABLET BY MOUTH ONCE DAILY FOR 90 DAYS THEN STOP FOR ONE WEEK REPEAT CYCLE 02/06/2021 Active D3-50 1.25 MG (88712 UT) capsule Take 50,000 Units by mouth 1 (one) time per week. 12/01/2020 Active meloxicam (MOBIC) 15 MG tablet Take 15 mg by mouth 1 (one) time each day. Active Active Problems Problem Noted Date Diagnosed Date Osteoporosis 02/24/2021 Laceration of left index finger 04/14/2019 Sprains and strains 02/17/2013 Overview (02/19/2018): Essential hypertension 10/26/2011 Overview (02/19/2018): Open wound of finger 07/25/2011 Overview (02/19/2018): Laboratory exam ordered as p art of routine general medical examination 04/25/2011 Overview (02/19/2018): Screening for hypertension 11/20/2010 Overview (02/19/2018): Anxiety state 07/31/2010 Overview (02/19/2018): Health examination of defined subpopulation 02/22 Overview (02/19/2018): Closed fracture of metatarsal bone 07/29/2009 Overview (02/19/2018): Contusion of multiple sites of lower limb 2008 Overview (02/19/2018): Routine general medical exam ination at a health care facility 05/18/2009 Overview (02/19/2018): Lateral epicondylitis of elbow 04/15/2008 Overview (02/19/2018): Other examination of ears and hearing 04/14/2008 Overview (02/19/2018): Pain in joint, upper arm 03/11/2008 Overview (02/19/2018): Pain in joint, shoulder region 03/11/2008 Overview (02/19/2018): Finger pain, left Resolved Problems Problem Noted Date Diagnosed Date Resolved Date Acute sinusitis 06/08/2009 04/23/2019 Overview (02/19/2018): Immunizations Immunization Administration Dates Next Due Td, adsorbed, PF, adult, Lf, unspecified (CVX-19 6) 07/21/2011 Tdap (ADACEL BOOSTRIX) (CVX-115) 04/14/2019 Social History Tobacco Use Types Packs/Day Years Used Date Smoking Tobacco: Every Day E-Cigarettes Started: 1986 Smokeless Tobacco: Never Intimate Partner Violence Answer Date R ecorded Insults You Not on file 01/03/2021 Threatens You Not on file 01/03/2021 Screams at You Not on file 01/03/2021 Physically Hurt Not on file 01/03/2021 Intimate Partner Violence Score Not on file 01/03/2021 Depression Answer Date Recorded PHQ-9 Total Score 0 03/10/2021 Stress Answer Date Recorded Stress in your Life Not on file 07/27/2024 Dealing with Stress 3 07/27/2024 Comments No Sex and Gender Information Value Date Recorded Sex Assigned at Not on file Legal Sex Female 7:21 AM CDT Gender Identity Not on file Sexual Orientation Not on file Last Filed Vital Signs Vital Sign Reading Time Taken Comments Blood Pressure 143/93 09/14/2021 1:23 PM EST Pulse 84 09/14/2021 1:23 PM EST Temperature 35.9 C (96.6 F) 08/31/2021 12:29 PM EST Respiratory Rate 18 09/14/2021 1:23 PM EST Oxygen Saturation 98% 09/14/2021 1:23 PM EST Inhaled Oxygen Concentration - - Weight 82.9 kg (182 lb 11.2 oz) 021 12:29 PM EST Height 160 cm (5' 3 ) 10/16/2018 11:33 AM EST Body Mass Index 32.36 10/16/2018 11:33 AM EST Plan of Treatment Health Maintenance Due Date Last Done Comments Dental Cleaning/Exam 1970 HIV Screening 1969 Hepatitis C Screening 1969 Cervical Cancer Screening 1985 Hep B Infection Screening - Triple Screen 1987 Hepatitis B Immunization (1 of 3 - 19+ 3-dose series) 1988 Pneumococcal: Ped (0 to 5 Yr s) and At-Risk Member (6 to 64 Yrs) (1 of 2 - PCV) 1988 Breast Cancer Screening 1999 Colorectal Cancer Screening 1999 Zoster Immunization (1 of 2) 2019 Annual Preventive Exam 10/16/2019 10/16/2018 Covid-19 Immunization (1 - 2 ) 05/24/2024 Influenza Immunization (Seas on Ended) 2025 Tetanus Diphtheria and Pertu ssis Immunization (2 - Td or Tdap) 04/14/2029 04/14/2019 HIB Immunization Aged Out No longer e ligible based on patient's age to complete this topic HPV Immunization Aged Out No longer e ligible based on patient's age to complete this topic Hepatitis A Immunization Aged Out No longer eligible based on patient's age to complete this topic Polio Immunization Aged Out No longer eligible based on patient's age to complete this topic Insurance [facility] 5 Care Teams General Operator Relationship Specialty Start Date End Date Duke Ramsey MD [address] [place] [address] CHAN HERNANDEZ [id number] PCP - General Plate Conditioner 07/28/19
--- OUTSIDE RECORDS SUMMARY | 2025-03-23 11:33 | XMS_ITS | Patient Health Record ---
Author Organization [facility] Address [address] [place] [address] Care Team Providers Care Defect Repairer Glassware Name Role Phone unknown, Unknown Primary Care Provider Unavailab Prema Rebolledo Unavailable DayneChaitanya melvin Unavailable [phone] Allergies Allergen (clinical drug ingredient) Drug/Non Drug Allergy documented on EMR Reaction Allergy Type Onset Date Status Neosporin Unknown Drug Allergy Active Substance with sulfonamide structure and antibacterial mechanism of action (substance) Sulfa Antibiotics Unknown Drug Allergy Active Reason For Referral No Information Medications Medication SIG (Take, Route, Frequency, Duration) Notes Start Date End Date Status Desvenlafaxine Succinate ER 50 MG TAKE ONE TABLET BY MOUTH DAILY Oral for 30 Days Active Synthroid 100 MCG Oral for 90 Days Active Est Estrogens-Methyltest 1.25-2.5 MG TAKE 1 TABLET BY MOUTH ONCE DAILY Oral for 90 Days Active amLODIPine Besylate 10 MG Oral for 90 Days Active tiZANidine HCl 2 MG TAKE 1 OR 2 TABLETS BY MOUTH ONCE DAILY AT BEDTIME NEEDED Oral for 30 Days PRN Active Metaxalone 800 MG Oral for 45 Days Active Cyclobenzaprine HCl 10 MG Oral for 90 Days PRN Active Estradiol 10 MCG Vaginal for 90 [...] Status W/U Status Risk Notes Problem Osteoporosis (38715513) Osteoporosis (M81.0) Active confirmed Problem Anxiety state (687676941) Anxiety state (F41.1) Active confirmed Problem Essential hypertension (32488109) Essential hypertension (I10) Active confirmed Problem Chronic fatigue syndrome (01236235) Chronic fatigue (R53.82) Active confirmed Vital Signs Blood pressure diastolic 97 mm Hg 03/19/2025 Height 63 in 03/19/2025 Blood pressure systolic 138 mm Hg 03/19/2025 Weight 173.1 lbs 03/19/2025 BMI 30.66 BMI 03/19/2025 Encounters Encounter Location Date Provider Diagnosis Lawrence Langston [address] [place] [address] 03/19/2025 Chaitanya Brown Chronic fatigue R53.82 Lawrence Langston [address] [place] [address] 03/19/2025 Chaitanya Brown Assessments Encounter Date Diagnosis (ICD Code) Assessment [...] [place] vitamin D 03/19/2025 Cortisol, Total 03/19/2025 Insurance Providers Payer Name Payer Address Payer Phone Subscriber Number Group Number Insured Name Patient Relationship to Insured Coverage Start Date Coverage End Date Medicare - [facility] [place] [address] [place] [address] [id number] Karen Castaneda Self - patient is the insured [facility] [address] [place] [address] [phone] [id number] Karen Castaneda Self - patient is the insured Medical (General) History Medical History History ICD Code Osteoporosis M81.0 Essential hypertension I10 Anxiety state F41.1 Surgical History Surgery Date(Month/Year) Exploratory Surgery- Uterus 2000 Cyst Removal- R thumb Hip Replacement- Right 2023 Breast augmentation x 3 1996 Hysterectomy 2001 Hospitalization History Reason Date(Month/Year) Hypertension Episode 2008
[2025-03-23 13:15] LABS: Hematocrit 41.0 % (37.0-47.0); Hemoglobin 13.3 g/dL (12.2-16.2); Immature Granulocytes % 0.3 %; Mean Corpuscular HGB Conc 32.4 g/dL (31.8-35.4); Mean Corpuscular Hemoglobin 30.5 pg (27.0-31.2); Mean Corpuscular Volume 94.0 fl (81-99); Nucleated Red Blood Cells % 0 %; Platelet Count 330 K/mm3 (142-424); Red Blood Count 4.36 M/mm3 (4.20-5.40); Red Cell Distribution Width-SD 47.9 fL; White Blood Count 7.5 K/mm3 (4.8-10.8)
[2025-03-23 13:40] LABS: Albumin Level 5.0 g/dl (3.5-5.0); Chloride 97 mmol/L (98-107); Potassium 4.9 mmoL/L (3.5-5.1); Sodium 138 mmol/L (136-145)
[2025-03-23 13:43] LABS: Alanine Aminotransferase 21 U/L (12-78); Albumin/Globulin Ratio 1.6 (1.1-1.8); Alkaline Phosphatase 75 U/L (38-126); Anion Gap 16.9 mEq/L (5-15); Aspartate Amino Transferase 32 U/L (14-36); Bilirubin,Total 0.2 mg/dl (0.2-1.3); Blood Urea Nitrogen 13 mg/dl (7-17); Calcium 10.2 mg/dl (8.4-10.2); Carbon Dioxide 29 mmol/L (22.0-30.0); Cholesterol 175 mg/dl (140-200); Creatinine,Serum 0.90 mg/dl (0.52-1.04); Estimated Glomerular Filt Rate 65 ml/min (>60); GFR (African American) 79 ML/MIN (>60); Globulin 3.1 g/dL (1.3-3.2); Glucose 102 mg/dl (74-100); Iron 127 ug/dL (37-170); Total Protein,Serum 8.1 g/dl (6.3-8.2); Triglycerides 57 mg/dl (30-150)
[2025-03-23 13:44] LABS: HDL Cholesterol 72 mg/dl (40-60)
[2025-03-23 13:51] LABS: C-Reactive Protein 12.8 mg/L (0-4)
[2025-03-23 13:54] LABS: Total Iron Binding Capacity 378 ug/dL (265-497)
[2025-03-23 14:16] LABS: Thyroid Stimulating Hormone 0.57 uIU/mL (0.465-4.68)
[2025-03-23 14:19] LABS: Ferritin 69.8 ng/ml (11.1-264)
[2025-03-23 15:05] LABS: Hemoglobin A1C 6.4 % (4.0-6.0)
[2025-03-23 15:44] LABS: Vitamin B12 399 pg/mL (239-931)
[2025-03-23 16:07] LABS: Free T4 (Free Thyroxine) 1.36 ng/dl (0.78-2.19)
[2025-03-24 03:38] LABS: FSH 12.9 mIU/mL (.); LH 21.5 mIU/mL (.); Testosterone,Total 45 ng/dL (4-50); Triiodothyronine (T3) Free 3.0 pg/mL (2.0-4.4)
[2025-03-29 23:13] LABS: 1,25 Dihydroxy Vitamin D 32 pg/mL (.); 1,25-Dihydroxy, Vitamin D-2 <10 pg/mL (.); 1,25-Dihydroxy, Vitamin D-3 32 pg/mL (.)
== END 2025-03-23 23:59 | disposition home or self-care (01) ==
LOC: LAB 11:31
PROVIDERS: PCP Nurse Practitioner Family; Visit Provider Physician Assistant
DX: R53.82 Chronic fatigue, unspecified (principal); I10 Essential (primary) hypertension
CPT/HCPCS: 36415; 80053; 80061; 82533; 82607; 82627; 82652; 82670; 82728; 83001; 83002; 83036; 83090; 83540; 83550; 84144; 84146; 84270; 84403; 84439; 84443; 84481; 84482; 84702; 85025; 86140; 86376; 86800

== ENCOUNTER 2025-06-03 09:26 | Outpatient (CLI) | payer MEDICARE, BC, SELFPAY ==
--- OUTSIDE RECORDS SUMMARY | 2025-04-19 06:40 | XMS_ITS ---
Author Organization [facility] Address [address] [place] [address] Care Team Providers Care Critical Care Registered Nurse Name Role Phone Marce Borges Primary Care Provider UnavailPrema Alvarenga Unavailable [phone] unknown, Unknown Unavailable Unavailable Chaitanya Brown Unavailable [phone] REASON FOR VISIT Lab Review Medications Medication [...] e-cigarette Encounters Encounter Location Date Provider Diagnosis [facility] [address] [address] 04/19/2025 Chaitanya Brown Chronic fatigue R53.82 and Hormone imbalance E34.9 Assessments Encounter Date Diagnosis (ICD Code) Assessment Notes Treatment Notes Treatment Clinical Notes Section Notes 04/19/2025 Chronic fatigue (ICD-10 - R53.82) 04/19/2025 Hormone imbalance (ICD-10 - E34.9) *Reviewed and discussed the patient's labs with her. The formal documents have not all yet been received by [facility], however the patient does present with screenshots [...] node. Patient presents with labs completed at [facility] and plans for next steps with her [...] energy/muscle tone/bone health. Taking Probiotics?: No Taking Prosperity 3?: No Currently or Trying to Conceive?: [...] * Karen CASTANEDA LDOB:1969 (54 yo F)Acc No.[id number]:04/19/2025 BHOT OV Patient: Karen REESE Provider: Cain Brown PA-C :1970 A ge:54 Y S ex:Female Date:04/19/2025 Address:[address], [place], [id number] Pcp:Marce Borges Check In:11:14 AM ESTCheck O [...] T aking Probiotics? N o T aking Prosperity 3? N o C urrently or Trying [...] node. Patient presents with labs completed at [facility] and plans for next steps with her [...] have not all yet been received by [facility], however the patient does present with screenshots [...] BHRT) * Billing Information: * Visit Code: 38109 Tele - Office Visit, Est Pt., Level 4. Modifiers: 95 * Procedure Codes: Care Plan Details* * Sign off status: Completed true * Provider: Cain Brown PA-C Date: 04/19/2025 Generated for Terry winchester/Domitila/eTnidhismitting on: 06/03/2025 09:42 AM EDT
--- OUTSIDE RECORDS SUMMARY | 2025-04-30 05:20 | XMS_ITS ---
Author Organization [facility] Address [address] [place] [address] Care Team Providers Care Training Technician Name Role Phone Marce Borges Primary Care Provider UnavailPrema Alvarenga Unavailable unknown, Unknown Unavailable Unavailable Chaitanya Brown Unavailable [phone] REASON FOR VISIT 1st Pelleting Encounters Encounter Location Date Provider Diagnosis [facility] [address] [place] [address] 04/30/2025 Chaitanya Brown Plan Of Treatment No Information Progress Notes * Karen CASTANEDA LDOB:1969 (54 yo F)Acc No.[id number]:04/30/2025 Patient: Karen REESE Provider: Cain Brown PA-C :1970 A ge:54 Y S ex:Female Date:04/30/2025 Address:[address], [id number] Pcp:Marce Borges Check In:09:18 AM ESTCheck O ut:10:21 AM EST * Billing Information: * Visit Code: * Procedure Codes: BHOTF BHOT Pellet - Female. Care Plan Details* * Sign off status: Completed true * Provider: Cain Brown PA-C Date: 0 04/30/2025 Generated for Terry winchester/Domitila/Kelsie on: 0 06/03/2025 09:42 AM EDT
--- OUTSIDE RECORDS SUMMARY | 2025-05-03 05:00 | XMS_ITS ---
Author Organization [facility] Address [address] [place] [address] Care Team Providers Care Supervisor Aluminum Fabrication Name Role Phone Marce Borges Primary Care Provider UnavailPrema Alvarenga Unavailable [phone] unknown, Unknown Unavailable Unavailable Chaitanya Brown Unavailable [phone] REASON FOR VISIT reminder to stop current hormones Medications Medication SIG (Take, Route, Frequency, Duration) Notes Start Date End Date Status amLODIPine Besylate 10 MG Tablet Oral; Duration: 90 Days Acti ve tiZANidine HCl 2 MG Tablet TAKE 1 OR 2 T ABLETS BY MOUTH ONCE DAILY AT BEDTIME NEEDED Oral; Duration: 30 Days PRN Active Desvenlafaxine Succinate ER 50 MG Tablet Extended Release 24 Hour TAKE ONE TABLET BY MOUTH DAILY Oral; Duration: 30 Days Active Est Estrogens-Methyltest 1.25-2.5 MG Tablet TAKE 1 TABLET BY MOUTH ONCE DAILY Oral; Duration: 90 Days Active Synthroid 100 MCG Tablet Oral; Duration: 90 Days Active Metaxalone 800 MG Tablet Oral; Duration: 45 Days Active Progesterone 100 MG Capsule 1 capsule Or ally with last meal before bed; Duration: 30 days 04/30/2025 Active Cyclobenzaprine HCl 10 MG Tablet Oral; Duration: 90 Days PRN Acti ve Estradiol 10 MCG Tablet Vaginal; Duratio n: 90 Days Active Losartan Potassium 100 MG Tablet Oral; Duration: 90 Days Acti ve Encounters Encounter Location Date Provider Diagnosis [facility] [address] [place] [address] 05/03/2025 Chaitanya Brown Plan Of Treatment No Information Progress Notes * Karen CASTANEDA LDOB:1969 (55 yo F)Acc No.[id number]:05/03/2025 Patient: Karen Florian Provider: Cain Brown PA-C :1970 A ge:54 Y S ex:Female Date:05/03/2025 Address:[address] [place] [address], [place], [id number] Pcp:Marce Borges Subjective: * Chief Complaints: * R eminder to stop current hormones * Medications: T akingEstradiol 10 MCG Tablet [...] MG Tablet Oral , Notes to Pharmacist: PRNProgesterone 100 MG Capsule 1 capsule Orally with last meal before bed Taking Estradiol 10 MCG Tablet Vaginal Taking Losartan [...] MG Tablet Oral , Notes to Pharmacist: PRNTaking Progesterone 100 MG Capsule 1 capsule Orally with last meal before bed Care Plan Details* * Electronic signature of TONO Alcantar PA-C on 06/03/2025 at 09:42 AM EDT Sign off status: Pending * Provider: Cain Brown PA-C Date: 05/03/2025 Generated for Terry winchester/Domitila/Kelsie on: 06/03/2025 09:42 AM EDT
--- OUTSIDE RECORDS SUMMARY | 2025-05-31 02:39 | XMS_ITS ---
Author Organization [facility] Address [address] [place] [place] [address] Care Team Providers Care Psychiatric Arnp Name Role Phone Marce Borges Primary Care Provider Prema Mcdaniel Unavailable unknown, Unknown Unavailable Unavailable REASON FOR VISIT Labs Encounters Encounter Location Date Provider Diagnosis [facility] [address] [place] [address] 05/31/2025 Prema Lara Chronic fatigue R53.82 Assessments Encounter Date Diagnosis (ICD Code) Assessment Notes Treatment Notes Treatment Clinical Notes Section Notes 05/31/2025 Chronic fatigue (ICD-10 - R53.82) Plan Of Treatment Pending Test Test Name Order Date Albumin 05/31/2025 TIBC ( Total Iron Binding Capacity) 09/0 04/2025 Iron 05/31/2025 homocysteine 05/31/2025 THYROID PANEL, FREE T3 05/31/2025 THYROID PANEL, FREE T4 05/31/2025 Estradiol 05/31/2025 Testosterone, Total 05/31/2025 Thyroid Peroxidase (TPO) Ab 05/31/2025 17-Hydroxyprogesterone 05/31/2025 HS CRP 05/31/2025 PROGESTERONE 05/31/2025 VITAMIN B12 05/31/2025 FSH 05/31/2025 LH 05/31/2025 TSH 05/31/2025 SEX HORMONE BINDING GLOBULIN 05/31/2025 1, 25 OH vitamin D 05/31/2025 Progress Notes * Karen CASTANEDA LDOB:1969 (55 yo F)Acc No.[id number]:05/31/2025 Patient: Karen REESE :1970 A ge:55 Y S ex:Female Address:[facility] [address] , [place], [address] Subjective: * Chief Complaints: * L abs Assessment: * Assessment: 1. C hronic fatigue - R53.82 (Primary) Plan: * Treatment: * true * Date: Generated for Terry winchester/Domitila/Maikelitting on: 0 06/03/2025 09:42 AM EDT
--- OUTSIDE RECORDS SUMMARY | 2025-06-03 09:42 | XMS_ITS | Clinical Summary ---
Author Organization [facility] Address [address] [place] [address] Care Team Providers Care Geropsychologist Name Role Phone Unavailable Primary Care Provider Unavailabl e Social History Tobacco Use Types Packs/Day Years Used Date Smoking Tobacco: Never Assessed Abuse Screen Answer Date Recorded Unsafe at Home or Work/School Not on file Feels Threatened by Someone? Not on file 07/2023 Does Anyone Keep You from Co ntacting Others or Doint Things Outside the Home? Not on file 07/03/2023 Physical Sign of Abuse Present Not on file 1 Housing Stability Answer Date Recorded Current Living Arrangements Not on file 06/23 Potentially Unsafe Housing Conditions Not on maxine e 07/03/2023 Family and Community Support Answer Stone e Recorded Help with Day-to-Day Activities Not on file 07/03/2023 Lonely or Isolated Not on file 07/03/2023 Employment Answer Date Recorded Do you want help finding or keeping work or a arielle b? Not on file 07/03/2023 Disabilities Answer Date Recorded Concentrating, Remembering, or Making Decisions Difficulty Not on file 07/03/2023 Doing Errands Independently Difficulty Not on fi le 07/03/2023 Education Answer Date Recorded Help with school or training? Not on file Preferred Language Not on file 07/03/2023 Comments Unknown Sex and Gender Information Value Date Recorded Sex Assigned at Not on file Legal Sex Female 4:55 PM EDT Gender Identity Not on file Sexual Orientation Not on file Plan of Treatment Health Maintenance Due Date Last Done Comments ANNUAL PHYSICAL 1970 Annual Gynecologic Pelvic and Breast Exam 1969 HEPATITIS C SCREENING 1969 TDAP/TD VACCINES (1 - Tdap) 1988 MAMMOGRAM 2009 COLOGUARD 2014 COLON CANCER SCREENING 5 YEAR SIGMOIDOSCOPY 2014 COLONOSCOPY [address] CANCER SCREENING 2014 CT COLONOGRAPHY 2014 FECAL OCCULT BLOOD TEST 2014 FIT Testing (1 year) 2014 Pneumococcal Vaccine 50+ (1 of 1 - PCV) 2019 ZOSTER VACCINE (1 of 2) 2019 COVID-19 Vaccine (1 - season) 2025 INFLUENZA VACCINE 06/23/2025
--- OUTSIDE RECORDS SUMMARY | 2025-06-03 09:42 | XMS_ITS ---
Author Organization Unknown Medications Date Medication Dosage DosageUnit StartDate StopDate StopReason Active DoseQuantity DoseUnit Dispense DispenseUnit Refills NdcCode DrugCode PharmacyId IsPrescription MappedMedication Srcstatus Custom 09/26 00:00 :00 Alendronate Sodium 70 MG Tablet 02/17/2021 00:00:00 1 12 3 [id number] 9 712 Continue 08/02 00:00 :00 Alendronate Sodium 70 MG Tablet 02/17/2021 00:00:00 1 12 3 [id number] 9 712 P Taking 06/29 00:00 :00 Alendronate Sodium 70 MG Tablet 02/17/2021 00:00:00 1 12 3 [id number] 9 712 P Taking 05/09 00:00 :00 Alendronate Sodium 70 MG Tablet 02/17/2021 00:00:00 0 12 3 [id number] 9 712 P Unknown Status 05/07 00:00 :00 Alendronate Sodium 70 MG Tablet 02/17/2021 00:00:00 1 12 3 [id number] 9 712 P Taking 08/02 00:00 :00 amLODIPine Besylate 10 MG Tablet 1 90 Tablet 3 01565817 810 P Refill 08/02 00:00 :00 amLODIPine Besylate 10 MG Tablet 1 90 Tablet 3 87622127 810 Taking 06/29 00:00 :00 amLODIPine Besylate 10 MG Tablet 1 90 Tablet 3 58460302 810 Taking 05/09 00:00 :00 amLODIPine Besylate 10 MG Tablet 0 90 Tablet 3 44789117 810 Unknown Status 05/07 00:00 :00 amLODIPine Besylate 10 MG Tablet 1 90 Tablet 3 91490570 810 Taking 08/02 00:00 :00 Benzonatate 100 MG Capsule 08/02/2022 00:00:00 1 21 Capsule 0 13133216 050 P Start 06/25 00:00 :00 Citalopram Hydrobromid e 10MG Tablet 0 2177899 6 954 Stop 05/09 00:00 :00 Citalopram Hydrobromid e 10MG Tablet 0 30 Tablet 0 686 96128 954 Unknown Status 05/07 00:00 :00 Citalopram Hydrobromid e 10MG Tablet 0 30 Tablet 0 686 32676 954 Not Taking 08/02 00:00 :00 Cyclobenzap rine HCl 10 MG Tablet 06/10/2017 00:00:00 1 270 1 1569860 0 750 Taking 06/29 00:00 :00 Cyclobenzap rine HCl 10 MG Tablet 06/10/2017 00:00:00 1 270 1 2031848 0 750 Taking 05/09 00:00 :00 Cyclobenzap rine HCl 10 MG Tablet 06/10/2017 00:00:00 0 270 1 5700298 0 750 Unknown Status 05/07 00:00 :00 Cyclobenzap rine HCl 10 MG Tablet 06/10/2017 00:00:00 1 270 1 [id number] 0 750 Taking 08/02 00:00 :00 D3-50 1.25 MG (84198 UT) Capsule 1 13 Unspecifi ed 3 59363676 201 P Taking 06/29 00:00 :00 D3-50 1.25 MG (77886 UT) Capsule 1 13 Unspecifi ed 3 [id number] 201 P Taking 05/09 00:00 :00 D3-50 1.25 MG (58179 UT) Capsule 0 13 Unspecifi ed 3 99341179 201 P Unknown Status 05/07 00:00 :00 D3-50 1.25 MG (93399 UT) Capsule 1 13 Unspecifi ed 3 01298893 201 P Taking 08/02 00:00 :00 Estradiol 1 MG Tablet 1 30 11891682 510 Taking 06/29 00:00 :00 Estradiol 1 MG Tablet 1 30 29002389 510 Taking 05/09 00:00 :00 Estradiol 1 MG Tablet 0 30 86339403 510 Unknown Status 05/07 00:00 :00 Estradiol 1 MG Tablet 1 30 09498879 510 Taking 08/02 00:00 :00 Ibuprofen 800 MG Tablet 03/31/2021 00:00:00 1 6929508 6 201 Taking 06/29 00:00 :00 Ibuprofen 800 MG Tablet 03/31/2021 00:00:00 1 [id number] 6 201 Taking 05/09 00:00 :00 Ibuprofen 800 MG Tablet 03/31/2021 00:00:00 0 9047609 6 201 Unknown Status 05/07 00:00 :00 Ibuprofen 800 MG Tablet 03/31/2021 00:00:00 1 [id number] 6 201 Taking 08/31 00:00 :00 Levothyroxi ne Sodium 100MCG Tablet 1 90 0 69 255370 401 P Refill 08/02 00:00 :00 Levothyroxi ne Sodium 100MCG Tablet 1 90 1 69 377371 401 Taking 06/29 00:00 :00 Levothyroxi ne Sodium 100MCG Tablet 1 90 1 69 400150 401 Taking 05/09 00:00 :00 Levothyroxi ne Sodium 100MCG Tablet 0 90 1 69 562163 401 Unknown Status 05/07 00:00 :00 Levothyroxi ne Sodium 100MCG Tablet 1 90 1 69 529089 401 Taking 08/02 00:00 :00 Losartan Potassium 100 MG Tablet 1 90 3 31 711528 210 P Refill 08/02 00:00 :00 Losartan Potassium 100 MG Tablet 1 90 3 31 290000 210 Taking 06/29 00:00 :00 Losartan Potassium 100 MG Tablet 1 90 3 31 952686 210 Taking 05/09 00:00 :00 Losartan Potassium 100 MG Tablet 0 90 3 31 187456 210 Unknown Status 05/07 00:00 :00 Losartan Potassium 100 MG Tablet 1 90 3 31 323580 210 Taking 08/24 00:00 :00 Meloxicam 15 MG Tablet 1 30 2 4903524 2 501 Continue 08/02 00:00 :00 Meloxicam 15 MG Tablet 1 30 2 6978628 2 501 P Refill 08/02 00:00 :00 Meloxicam 15 MG Tablet 1 30 1714672 2 501 Taking 06/29 00:00 :00 Meloxicam 15 MG Tablet 1 30 5621191 2 501 Taking 08/28 00:00 :00 Metaxalone 400 MG Tablet 08/29/2022 00:00:00 1 90 Tablet 5 36091 174 501 P Start 05/09 00:00 :00 Metaxalone 800 MG Tablet 0 270 1 71023 065 001 Unknown Status 05/07 00:00 :00 Metaxalone 800 MG Tablet 1 270 1 45491 065 001 Taking 08/02 00:00 :00 PredniSONE 20 MG Tablet 08/02/2022 00:00:00 1 10 Tablet 0 62075 058 810 P Start 08/02 00:00 :00 Skelaxin 800 MG Tablet 1 90 9509516 0 900 Taking 06/29 00:00 :00 Skelaxin 800 MG Tablet 1 90 4258502 0 900 Taking 05/09 00:00 :00 Skelaxin 800 MG Tablet 0 90 1644108 0 900 Unknown Status 05/07 00:00 :00 Skelaxin 800 MG Tablet 1 90 8480100 0 900 Taking 08/02 00:00 :00 Wellbutrin SR 200 MG Tablet Extended Release 12 Hour 05/07/2022 00:00:00 1 90 Tablet 1 92274 072 200 P Taking 06/29 00:00 :00 Wellbutrin SR 200 MG Tablet Extended Release 12 Hour 05/07/2022 00:00:00 1 90 Tablet 1 48153 072 200 P Refill 06/29 00:00 :00 Wellbutrin SR 150 MG Tablet Extended Release 12 Hour 05/07/2022 00:00:00 1 90 Tablet 3 31366 013 555 P Taking 06/25 00:00 :00 Wellbutrin SR 150 MG Tablet Extended Release 12 Hour 05/07/2022 00:00:00 1 90 Tablet 3 87813 013 555 P Refill 05/09 00:00 :00 Wellbutrin SR 150 MG Tablet Extended Release 12 Hour 05/07/2022 00:00:00 0 30 1 3200239 3 555 P Unknown Status 05/07 00:00 :00 Wellbutrin SR 150 MG Tablet Extended Release 12 Hour 05/07/2022 00:00:00 1 30 1 9272910 3 555 P Start 08/02 00:00 :00 Yuvafem 10 MCG Tablet 1 90 Unspecifi ed 3 90889640 621 P Taking 06/29 00:00 :00 Yuvafem 10 MCG Tablet 1 90 Unspecifi ed 3 83767424 621 P Taking 05/09 00:00 :00 Yuvafem 10 MCG Tablet 0 90 Unspecifi ed 3 54028900 621 P Unknown Status 05/07 00:00 :00 Yuvafem 10 MCG Tablet 1 90 Unspecifi ed 3 87800328 621 P Taking
--- OUTSIDE RECORDS SUMMARY | 2025-06-03 09:42 | XMS_ITS | Patient Health Record ---
Author Organization [facility] Address [address] [place] [address] Care Team Providers Care Photographer Motion Picture Name Role Phone Marce Borges Primary Care Provider UnavailPrema Alvarenga Unavailable unknown, Unknown Unavailable Unavailable Chaitanya Brown Unavailable [phone] Allergies Allergen (clinical drug ingredient) Drug/Non Drug [...] MG Tablet Oral; Duration: 45 Days Active tiZANidine HCl 2 MG Tablet TAKE 1 OR 2 T ABLETS BY MOUTH ONCE DAILY AT BEDTIME NEEDED Oral; Duration: 30 Days PRN Active Progesterone 100 MG Capsule 1 capsule Or ally with last meal before bed; Duration: 30 days 04/30/2025 Active Cyclobenzaprine HCl 10 MG Tablet Oral; Duration: 90 Days PRN Acti ve Estradiol 10 MCG Tablet Vaginal; Duratio n: 90 Days Active Desvenlafaxine Succinate ER 50 MG Tablet Extended Release 24 Hour TAKE ONE TABLET BY MOUTH DAILY Oral; Duration: 30 Days Active Losartan Potassium 100 MG Tablet Oral; Duration: 90 Days Acti ve Est Estrogens-Methyltest 1.25-2.5 MG Tablet TAKE 1 TABLET BY MOUTH ONCE DAILY Oral; Duration: 90 Days Active Synthroid 100 MCG Tablet Oral; Duration: 90 Days Active Social History Tobacco Use: [...] to quit Additional Findings: Tobacco user e-cigarette Problems Problem Type SNOMED Code ICD Code Onset Dates Problem Status W/U Status Risk Notes Problem Osteoporosis (08802698) Osteoporosis (M81.0) Active confirmed Problem Anxiety state (964426795) Anxiety state (F41.1) Active confirmed Problem Essential hypertension (33767851) Essential hypertension (I10) Active confirmed Problem Chronic fatigue syndrome (51308149) Chronic fatigue (R53.82) Active confirmed Problem Disorder of endocrine system (515554456) Hormone imbalance (E34.9) Active confirmed *Reviewed and discussed the patient's labs with her. The formal documents have not all yet been received by [facility], however the patient does present with screenshots of her portal account which includes the values needed to calculate her pellet dosing. *Vitamin B12 399: recommend for supplementing 500 mcg once a day if not already taking, if currently on supplementation recommend for 1000 mcg. *Estradiol: 72.3, her current HRT includes 10 mcg estradiol vaginal tab and 1.25-2.5 mg estradiol-methyl testosterone tab. The latter initially helped a year [...] strain on her marriage with libido changes. Vital Signs Blood pressure diastolic 97 mm Hg 03/19/2025 Height 63 in 03/19/2025 Blood pressure systolic 138 mm Hg 03/19/2025 Weight 173.1 lbs 03/19/2025 BMI 30.66 BMI 03/19/2025 Encounters Encounter Location Date Provider Diagnosis [facility] [address] [place] [address] 03/19/2025 Chaitanya Brown Chronic fatigue R53.82 and Hormone imbalance E34.9 [facility] [address] [place] [address] 04/19/2025 Chaitanya Brown Chronic fatigue R53.82 and [facility]ormone imbalance [facility]34.9 [facility] [address] [place] [address] 04/30/2025 Chaitanya Bravo Ivis [address] [place] [address] 03/19/2025 Chaitanya [place] [address] [place] [address] 04/30/2025 Chaitanya [place] [address] [place] [address] 05/31/2025 Prema Lara Chronic fatigue R53.82 Assessments Encounter Date Diagnosis (ICD Code) Assessment Notes Treatment Notes Treatment Clinical Notes Section Notes 03/19/2025 Chronic fatigue (ICD-10 - R53.82) 03/19/2025 Hormone imbalance (ICD-10 - E34.9) *[facility] in [place], last lab work completed 02/16/25. Will request these, once these are received I want to cross reference with our pre-RT female panel so we aren't doubling down on what was already completed. Patient requested that any additional labs be sent to [facility] to complete. Once we've received those we will plan for moving forward with Jackie feliz spoke with her regarding pricing for the pellets and DIM supplement. *Discuss the patients reported drinking habits noting she has drank as much as is listed for most of her adult life, denies role played in strain on her marriage with libido changes. 04/19/2025 Chronic fatigue (ICD-10 - R53.82) 04/19/2025 Hormone imbalance (ICD-10 - E34.9) *Reviewed and discussed the patient's labs with her. The formal documents have not all yet been received by [facility], however the patient does present with screenshots [...] strain on her marriage with libido changes. 05/31/2025 Chronic fatigue (ICD-10 - R53.82) Plan Of Treatment Pending Test Test Name Order Date Albumin 05/31/2025 Prolactin 03/19/2025 TIBC ( Total Iron Binding Capacity) 02/22 TIBC ( Total Iron Binding Capacity) 04/2025 Ferritin 03/19/2025 DHEA-S 03/19/2025 Iron 03/19/2025 Iron 05/31/2025 Human Chorionic Gonadotropin (HCG) Serum 03/19/2025 homocysteine 03/19/2025 homocysteine 05/31/2025 homocysteine 03/19/2025 CBC with Differential 03/19/2025 THYROID PANEL, FREE T3 03/19/2025 THYROID PANEL, FREE T3 05/31/2025 THYROID PANEL, FREE T4 05/31/2025 THYROID PANEL, FREE T4 03/19/2025 CMP 03/19/2025 Hemoglobin A1c w Est Avg/Mean Gluc 03/19 Estradiol 03/19/2025 Estradiol 05/31/2025 Testosterone, Total 05/31/2025 Testosterone, Total 03/19/2025 Thyroglobulin Panel 03/19/2025 Thyroid Peroxidase (TPO) Ab 03/19/2025 Thyroid Peroxidase (TPO) Ab 05/31/2025 17-Hydroxyprogesterone 05/31/2025 Reverse T3 03/19/2025 LIPID PANEL 03/19/2025 HS CRP 03/19/2025 HS CRP 05/31/2025 PROGESTERONE 05/31/2025 PROGESTERONE 03/19/2025 VITAMIN B12 03/19/2025 VITAMIN B12 05/31/2025 FSH 05/31/2025 FSH 03/19/2025 LH 03/19/2025 LH 05/31/2025 TSH 05/31/2025 TSH 03/19/2025 SEX HORMONE BINDING GLOBULIN 03/19/2025 SEX HORMONE BINDING GLOBULIN 05/31/2025 1, 25 OH vitamin D 05/31/2025 1, 25 OH vitamin D 03/19/2025 Cortisol, Total 03/19/2025 Insurance Providers Payer Name Payer Address Payer Phone Subscriber Number Group Number Insured Name Patient Relationship to Insured Coverage Start Date Coverage End Date [place] [address] [place] [address] [phone] [id number] Karen Castaneda Self - patient is the insured [facility] [address] [place] [address] [phone] [id number] Karen Castaneda Self - patient is the insured Medical (General) History Medical History History ICD Code Osteoporosis M81.0 Essential hypertension I10 Anxiety state F41.1 Surgical History Surgery Date(Month/Year) Hysterectomy 2002 Breast augmentation x 3 1996 Hip Replacement- Right 2023 Cyst Removal- R thumb Exploratory Surgery- Uterus 2000 Hospitalization History Reason Date(Month/Year) Hypertension Episode 2008
--- OUTSIDE RECORDS SUMMARY | 2025-06-03 09:42 | XMS_ITS | Clinical Summary ---
Author Organization [facility] Address [address] [place] [address] Care Team Providers Care Day Care Assistant Name Role Phone JonyMarce Courtney XAVIER Primary Care Provider [phone] Allergies Active Allergy Reactions Criticality Noted Date [...] Primary osteoarthritis of one hip, right 023 Family History Medical History Relation Name Comments Heart attack Father Fibromyalgia Mother Hypertension Mother PML Mother Relation Name Status Comments Father Mother Social History Tobacco Use Types Packs/Day Years Used Date Smoking Tobacco: Former Cigarettes 1 34 1 987 - 2020 Smokeless Tobacco: Never Tobacco Cessation:Counseling [...] drink first t juliane in the morning (EYE-PLANTING MATERIAL UNLOADER) to steady your nerves or to get [...] Screening 1970 [facility]-Medicare Annual Wellness (AWV) 1969 [facility]-/Child/Adol SDOH Screenings 1969 [facility]- SDOH Screenings 1987 [facility]-Adult SDOH Screenings 1987 [facility]-Hepatitis B Vaccines (1 of 3 - 19+ 3-dose series) 1988 CT Colonography 2014 Colonoscopy 2014 FIT-DNA 2014 FIT 2014 FOBT 2014 Sigmoidoscopy 2014 [facility]-Colorectal Cancer Screening 2014 [facility]-Breast Cancer Screening 2019 [facility]-Lung Cancer Screening 2019 [facility]-Pneumococcal Vaccine: 50+ Years (1 of 1 - PCV) 2019 [facility]-Zoster Vaccines (1 of 2) 2019 [facility]-Depression Screening 12/30/2024 12/31/2023 [id number] Vaccine (4 - season) 2025 07/14/2021, 06/16/2021, 12/13/2020 [facility]-Influenza Vaccine (#1) 2025 07/05/2016 [facility]-DTaP,Tdap,and Td Vaccines (2 - [...] this topic Medical Devices Implanted Type Area Internet Programmer Device Identifier Shelf Expiration Date Model / Serial / Lot Shell Trident Ii Cluster 46mm - [id number] Implanted:Qty: 1 on 07/31/2023 by Sergio Rose MD at [facility] Hip Right: Hip [employer] ([facility])-[id number] 68 05/02/2028 [id number] / / [id number] Liner Mdm Cocr 36mm C - [id number] Implanted:Qty: 1 on 07/31/2023 by Sergio Rose MD at [facility] Hip Right: Hip [employer] ([facility])-[id number] 68 02/27/2028 [id number] / / [id number] Insert X3 Mdm Restor 36 Mm Od 22 Mm Id X 6.7 Mm - [id number] Implanted:Qty: 1 on 07/31/2023 by Sergio Rose MD at [facility] Hip Right: Hip [employer] [facility][id number] 68 09/05/2027 [id number] / / [id number] Hip Size 4 Accolade Ii 132 Deg - [id number] Implanted:Qty: 1 on 07/31/2023 by Sergio Rose MD at [facility] Hip Right: Hip [employer] ([facility][id number] 68 06/14/2028 [id number] / / [id number] Chg Head 22.2mm Std Lfit V40 - [id number] Implanted:Qty: 1 on 07/31/2023 by Sergio Rose MD at [facility] Hip Right: Hip [employer] ([facility][id number] 68 06/02/2028 [id number] / / [id number] Screw 6.5mm Trident Low Profile Hex 25mm - [id number] Implanted:Qty: 1 on 07/31/2023 by Sergio Rose MD at [facility] Screw Right: Hip [employer] ([facility][id number] 68 05/01/2028 [id number] / / [id number] Insurance [facility] [place] [address] [place] Advance Directives * Full Code (Latest Code Status on File) Date Activated Date Inactivated Comments 07/31/2023 7:53 AM 08/01/2023 6:25 PM Question Answer Comments Patient has decision-making capacity? Yes Care Teams Day Care Assistant Relationship Specialty Start Date End Date Marce Borges APRN [address] [place] [address] PCP - General 05/02/23
--- OUTSIDE RECORDS SUMMARY | 2025-06-03 09:42 | XMS_ITS | Clinical Summary ---
Author Organization [facility] Address [address] [place] [address] Phone [email or web address] Care Team Providers Care Drafter Patent Name Role Phone Duke Ramsey MD Primary Care Provider [phone] Allergies Active Allergy Reactions Criticality Noted Date [...] REPEAT CYCLE 02/06/2021 Active D3-50 1.25 MG (76495 UT) capsule Take 50,000 Units by mouth [...] Health Maintenance Due Date Last Done Comments CT Colonography 1969 Cervical Cancer Screening Combo 1969 Colonoscopy 1969 Colorectal Cancer Screening Combo 1969 DNA Cologuard 1969 Dental Cleaning/Exam 1969 FIT or FOBT Test 1969 HIV Screening 1969 HPV / Cotest 1969 Hepatitis C Screening 1969 Pap Testing 1969 Sigmoidoscopy 1969 Hep B Infection Screening - Triple Screen 1987 Hepatitis B Immunization (1 of 3 - 19+ 3-dose series) 1988 Pneumococcal: Ped (0 to 5 Yr s) and At-Risk Member (6 to 64 Yrs) (1 of 2 - PCV) 1988 Breast Cancer Screening 1999 Zoster Immunization (1 of 2) 2019 Annual Preventive Exam 10/16/2019 10/16/2018 Covid-19 Immunization (1 - 2 season) 2025 Influenza Immunization (#1) 2025 Tetanus Diphtheria and Pertu ssis Immunization [...] patient's age to complete [place] [address] [place] [id number] [facility] [place] [facility] [id number] [place] [address] Care Teams Drafter Patent Relationship Specialty Start Date End Date Duke Ramsey MD [address] [place] [address] [place] [id number] PCP - General Geospatial Applications Developer 07/28/19
[2025-06-03 10:47] LABS: Free T4 (Free Thyroxine) 1.40 ng/dl (0.78-2.19)
[2025-06-03 11:04] LABS: Thyroid Stimulating Hormone 1.00 uIU/mL (0.465-4.68)
[2025-06-03 11:23] LABS: Vitamin B12 705 pg/mL (239-931)
[2025-06-03 13:49] LABS: C-Reactive Protein 11.2 mg/L (0-4)
[2025-06-03 13:54] LABS: Albumin Level 4.8 g/dl (3.5-5.0)
[2025-06-03 13:57] LABS: Iron 115 ug/dL (37-170)
[2025-06-03 14:01] LABS: 25-OH Vitamin D, Total > 126 ng/mL (30-100)
[2025-06-03 14:06] LABS: Total Iron Binding Capacity 367 ug/dL (265-497)
[2025-06-04 11:12] LABS: Triiodothyronine (T3) Free 3.0 pg/mL (2.0-4.4)
[2025-06-04 13:43] LABS: LH 31.6 mIU/mL (.)
[2025-06-04 17:12] LABS: FSH 42.8 mIU/mL (.)
== END 2025-06-03 23:59 | disposition home or self-care (01) ==
LOC: LAB 09:27
PROVIDERS: PCP Nurse Practitioner Family; Visit Provider Anesthesiology Pain Medicine
DX: R53.82 Chronic fatigue, unspecified (principal)
CPT/HCPCS: 82040; 82306; 82607; 82670; 83001; 83002; 83090; 83498; 83540; 83550; 84144; 84270; 84403; 84439; 84443; 84481; 86140; 86376

== ENCOUNTER 2025-06-15 07:24 | Outpatient (CLI) | payer MEDICARE, BC, SELFPAY ==
--- OUTSIDE RECORDS SUMMARY | 2025-04-19 06:40 | XMS_ITS ---
Author Organization [facility] Address [address] [place] [address] Care Team Providers Care Wool Mixer Name Role Phone Marce Borges Primary Care Provider UnavailPrema Alvarenga Unavailable unknown, Unknown Unavailable Unavailable Chaitanya Brown Unavailable [phone] REASON FOR VISIT Lab Review Medications Medication SIG (Take, Route, Frequency, Duration) Notes Start Date End Date Status Estradiol 10 MCG Tablet Vaginal; Duratio n: 90 Days Active Cyclobenzaprine HCl 10 MG Tablet Oral; Duration: 90 Days PRN Acti ve Desvenlafaxine Succinate ER 50 MG Tablet Extended Release 24 Hour TAKE ONE TABLET BY MOUTH DAILY Oral; Duration: 30 Days Active Losartan Potassium 100 MG Tablet Oral; Duration: 90 Days Acti ve Metaxalone 800 MG Tablet Oral; Duration: 45 Days Active Est Estrogens-Methyltest 1.25-2.5 MG Tablet TAKE 1 TABLET BY MOUTH ONCE DAILY Oral; Duration: 90 Days Active Synthroid 100 MCG Tablet Oral; Duration: 90 Days Active tiZANidine HCl 2 MG Tablet TAKE 1 OR 2 T ABLETS BY MOUTH ONCE DAILY AT BEDTIME NEEDED Oral; Duration: 30 Days PRN Active amLODIPine Besylate 10 MG Tablet Oral; Duration: 90 Days Acti ve Social History Tobacco Use: Social History Observation Description Date Details (start date - stop date) Current Smoker NA - NA Social History General Social Info Question Answer Notes Personal History Marital status / Partnered What is your work status? Retired Drug/Alcohol: Social Info Question Answer Notes AUDIT-C (Standard) Did you have a drink containing alcohol in the past year? Yes How often did you have a drink containing alcohol in the past year? Daily or almost daily (4 points) How many drinks did you have on a typical day when you were drinking in the past year? 5 or 6 drinks (2 points) How often did you have six or more drinks on one occasion in the past year? 4 or more times a week (4 points) Points 10 Interpretation Positive Tobacco Use: Social Info Question Answer Notes Tobacco Control (Standard) Tobacco use: Current smoker How often do you smoke cigarettes? Every day How many cigarettes a day do you smoke? 5 or less How soon after you wake up do you smoke your first cigarette? Within 5 minutes Are you interested in quitting? Not ready to quit Additional Findings: Tobacco user e-cigarette Encounters Encounter Location Date Provider Diagnosis [facility] [address] [place] [address] 04/19/2025 Chaitanya Brown Chronic fatigue R53.82 and Hormone imbalance E34.9 Assessments Encounter Date Diagnosis (ICD Code) Assessment Notes Treatment Notes Treatment Clinical Notes Section Notes 04/19/2025 Chronic fatigue (ICD-10 - R53.82) 04/19/2025 Hormone imbalance (ICD-10 - E34.9) *Reviewed and discussed the patient's labs with her. The formal documents have not all yet been received by [facility], however the patient does present with screenshots of her portal account which includes the values needed to calculate her pellet dosing. *Vitamin B12 399: recommend for supplementing 500 mcg once a day if not already taking, if currently on supplementation recommend for 1000 mcg. *Estradiol: 72.3, her current HRT includes 10 mcg estradiol vaginal tab and 1.25-2.5 mg estradiol-methyltest osterone tab. The latter initially helped a year ago when started but tapered after a week 2/2 side effects. Will CTM with transition to pellet therapy and transitioning away from her current regimen. *Total Testosterone: 45, discussed goal in optimization for women between 150-250 to which she qualifies as a good candidate to continue with her discussed pellet therapy. *CRP was high at 12.8 (cut off of 0-4) however no other findings on her labs suggest correlation outside of internal inflammation. *Have discussed the patients reported drinking habits noting she has drank as much as is listed for most of her adult life, denies role played in strain on her marriage with libido changes. Plan Of Treatment Next Appt Details Follow Up: Schedule pelletin g, Reason: BHRT History and Physical Notes * HPI (History of Present Illness) Category Sub-Category Detail Notes Category Not es BHRT Female Health Assessment Physica l Exhaustion (fatigue, lack of energy, stamina, or motivation): Severe (3 points) 04/19/25 - Patient presents today for follow up regarding pellet BHRT noting prominent symptoms surrounding sleep disturbances, difficulties with memory, vaginal dryness, and decreased libido. Current HRT: 10 mcg estradiol vaginal tab, 1.25-2.5 mg estradiol-methyltestoste ghazal tab. The latter initially helped a year ago when started but tapered after a week. Her estradiol was last taken 2-3 weeks ago around the beginning of February 2025. Patient notes history of osteoporosis to which she takes calcium and vitamin D supplements. Patient had a complete hysterectomy completed 2/2 complications surrounding endometriosis. Following this surgery she received premarin with initial benefit in her sex drive. Patient later underwent a right RANDI 2/2 osteonecrosis in her right hip. She declines Prolera for concern of black box warning for osteonecrosis of jaw. Lumpectomy in right breast performed several years ago, turned out to be migrated lymph node. Patient presents with labs completed at [facility] and plans for next steps with her therapy. Sleep Problems (difficulty f alling asleep or [...] energy/muscle tone/bone health. Taking Probiotics?: No Taking Robinson 3?: No Currently or Trying to Conceive?: [...] No Preexisting Conditions Exper ienced:: Hot Flashes Examination Category Sub-Category Detail Notes Category Not es General examination Neck, thyroid : normal ROM o f C spine for age, non-tender, normal alignment Heart: no signs of cyanosis or circulatory insufficiency Lungs: no evidence of respi ratory distress Extremities: no clubbing, edema, or rash General appearance: in no acute distress , no suicidal ideation, normal affect Skin: no obvious bruise or breakage Neurologic exam: no evidence of sedat ion Abdomen: normal Gait and Posture Normal Gait Progress Notes * Karen CASTANEDA LDOB:1969 (54 yo F)Acc No.[id number]:04/19/2025 BHOT OV Patient: Karen REESE Provider: Cain Brown PA-C :1970 A ge:54 Y S ex:Female Date:04/19/2025 Address:[address], [place], [id number] Pcp:Marce Borges Check In:11:14 AM ESTCheck O ut:11:23 AM EST Subjective: * Chief Complaints: * L ab Review * HPI: B HRT: Female Health Assessment [...] T aking Probiotics? N o T aking Robinson 3? N o C urrently or Trying [...] P reexisting Conditions Experienced: H ot Flashes 04/19/25 - Patient presents today for follow up regarding pellet BHRT noting prominent symptoms surrounding sleep disturbances, difficulties with memory, vaginal dryness, and decreased libido. ? Current HRT: 10 mcg estradiol vaginal tab, 1 .25-2.5 mg estradiol-methyltestosterone tab. The latter initially helped a year ago when started but tapered after a week. Her estradiol was last taken 2-3 weeks ago around the beginning of February 2025. Patient notes history of osteoporosis to which she takes calcium and vitamin D supplements. Patient had a complete hysterectomy completed 2/2 complications surrounding endometriosis. Following this surgery she received premarin with initial benefit in her sex drive.? Patient later underwent a right RANDI 2/2 o steonecrosis in her r ight hip. She declines Prolera for concern of black box warning for osteonecrosis of jaw. Lumpectomy in right breast performed s everal years ago, turned out t o be migrated lymph node. Patient presents with labs completed at [facility] and plans for next steps with her therapy. * ROS: 0 1. General: Default for all 1 3 systems reviewed, all negative unless indicated otherwise. * Medical History: Osteoporosis Essential hypertension Anxiety state * Surgical History: Hysterectomy 2002 Breast augmentation x 3 1997 Hip Replacement- Right 2023 Cyst Removal- R thumb Exploratory Surgery- Uterus 2000 * Hospitalization/Major Diagno stic Procedure: Hypertension Episode 2008 * Family History: F ather: diagnosed with [...] I nterpretation P ositive * Medications: T akingEstradiol 10 MCG Tablet Vaginal Losartan Potassium 100 MG Tablet Oral Desvenlafaxine Succinate ER 50 MG Tablet Extended Release 24 Hour TAKE ONE TABLET BY MOUTH DAILY Oral Synthroid 100 MCG Tablet Oral Est Estrogens-Methyltest 1.25-2.5 MG Tablet TAKE 1 TABLET BY MOUTH ONCE DAILY Oral amLODIPine Besylate 10 MG Tablet Oral tiZANidine HCl 2 MG Tablet TAKE 1 OR 2 TABLETS BY MOUTH ONCE DAILY AT BEDTIME NEEDED Oral , Notes to Pharmacist: PRNMetaxalone 800 MG Tablet Oral Cyclobenzaprine HCl 10 MG Tablet Oral , Notes to Pharmacist: PRNMedication List reviewed and reconciled with the patientTaking Estradiol 10 MCG Tablet Vaginal Taking Losartan Potassium 100 MG Tablet Oral Taking Desvenlafaxine Succinate ER 50 MG Tablet Extended Release 24 Hour TAKE ONE TABLET BY MOUTH DAILY Oral Taking Synthroid 100 MCG Tablet Oral Taking Est Estrogens-Methyltest 1.25-2.5 MG Tablet TAKE 1 TABLET BY MOUTH ONCE DAILY Oral Taking amLODIPine Besylate 10 MG Tablet Oral Taking tiZANidine HCl 2 MG Tablet TAKE 1 OR 2 TABLETS BY MOUTH ONCE DAILY AT BEDTIME NEEDED Oral , Notes to Pharmacist: PRNTaking Metaxalone 800 MG Tablet Oral Taking Cyclobenzaprine HCl 10 MG Tablet Oral , Notes to Pharmacist: PRNMedication List reviewed and reconciled with the patient Objective: * Vitals: No vitals taken 2/2 telehealth visit. * Examination: G eneral examination: General appearance: i n no acute distress, no suicidal ideation, normal affect. Gait and Posture N ormal Gait. Neck, thyroid : n ormal ROM of C spine for age, non-tender, normal alignment. Heart: n o signs of cyanosis or circulatory insufficiency.? Lungs: n o evidence of respiratory distress. Abdomen: n ormal. Neurologic exam: n o evidence of sedation. Extremities: n o clubbing, edema, or rash. Skin: n o obvious bruise or breakage. ? Assessment: * Assessment: 1. C hronic fatigue - R53.82 2 . H ormone imbalance - E34.9 (Primary) ? N otes :*Reviewed and discussed the patient's labs with her. The formal documents have not all yet been received by [facility], however the patient does present with screenshots of her portal account which includes the values needed to calculate her pellet dosing. *Vitamin B12 399: recommend for supplementing 500 mcg once a day if not already taking, if currently on supplementation recommend for 1000 mcg. *Estradiol: 72.3, her current HRT includes 10 mcg estradiol vaginal tab and 1 .25-2.5 mg estradiol-methyltestosterone tab. The latter initially helped a year ago when started but tapered after a week 2/2 side effects. Will CTM with transition to pellet therapy and transitioning away from her current regimen. *Total Testosterone: 45, discussed goal in optimization for women between 150-250 to which she qualifies as a good candidate to continue with her discussed pellet therapy. *CRP was high at 12.8 (cut off of 0-4) however no other findings on her labs suggest correlation outside of internal inflammation. *Have discussed the patients reported drinking habits noting she has drank as much as is listed for most of her adult life, denies role played in strain on her marriage with libido changes. Plan: * Treatment: * Procedure Codes: * Follow Up: S luisdule pelleting (Reason: BHRT) * Billing Information: * Visit Code: 52511 Tele - Office Visit, Est Pt., Level 4. Modifiers: 95 * Procedure Codes: Care Plan Details* * Sign off status: Completed true * Provider: Cain Brown PA-C Date: 04/19/2025 Generated for Terry winchester/Domitila/eTnidhismitting on: 06/15/2025 07:27 AM EDT
--- OUTSIDE RECORDS SUMMARY | 2025-04-30 05:20 | XMS_ITS ---
Author Organization [facility] Address [address] [place] [address] Care Team Providers Care Utility Lineman Name Role Phone Marce Borges Primary Care Provider UnavailPrema Alvarenga Unavailable [phone] unknown, Unknown Unavailable Unavailable Chaitanya Brown Unavailable [phone] REASON FOR VISIT 1st Pelleting Encounters Encounter Location Date Provider Diagnosis [facility] [address] [place] [address] 04/30/2025 Chaitanya Brown Plan Of Treatment No Information Progress Notes * Karen GARZA LDOB:1969 (54 yo F)Acc No.[id number]:04/30/2025 Patient: Karen REESE Provider: Cain Brown PA-C [...] 04/30/2025 Generated for Terry winchester/Domitila/Kelsie on: 0 06/15/2025 07:28 AM EDT
--- OUTSIDE RECORDS SUMMARY | 2025-05-03 05:00 | XMS_ITS ---
Author Organization [facility] Address [address] [place] [address] Care Team Providers Care Eyeglass Maker Name Role Phone Marce Borges Primary Care Provider UnavailPrema Alvarenga Unavailable unknown, Unknown Unavailable Unavailable Chaitanya Brown Unavailable [phone] REASON FOR VISIT reminder to stop current [...] ve Encounters Encounter Location Date Provider Diagnosis [facility] [address] [place] [address] 05/03/2025 Chaitanya Brown Plan Of Treatment No Information Progress Notes * Karen CASTANEDA LDOB:1969 (55 yo F)Acc No.[id number]:05/03/2025 Patient: Karen Florian Provider: Cain Brown PA-C :1970 A ge:54 Y S ex:Female Date:05/03/2025 Address:[address] [place] [address], [place], [id number] Pcp:Marce Borges Subjective: * Chief Complaints: * [...] Electronic signature of TONO Alcantar PA-C on 06/15/2025 at 07:27 AM EDT Sign off status: Pending * Provider: Cain Brown PA-C Date: 05/03/2025 Generated for Terry winchester/Domitila/Kelsie on: 06/15/2025 07:27 AM EDT
--- OUTSIDE RECORDS SUMMARY | 2025-05-31 02:39 | XMS_ITS ---
Author Organization [facility] Address [address] [place] [address] Care Team Providers Care Box Office Agent Name Role Phone Marce Borges Primary Care Provider Prema Mcdaniel Unavailable unknown, Unknown Unavailable Unavailable REASON FOR VISIT Labs Encounters Encounter Location Date Provider Diagnosis [facility] [address] [place] [address] 05/31/2025 Prema Lara Chronic fatigue R53.82 Assessments [...] * Karen CASTANEDA LDOB:1969 (55 yo F)Acc No.[id number]:05/31/2025 Patient: Karen REESE :1970 A ge:55 Y S ex:Female Address:[facility] [address] , [place], [address] Subjective: * Chief Complaints: * L abs Assessment: * Assessment: 1. C hronic fatigue - R53.82 (Primary) Plan: * Treatment: * true * Date: Generated for Terry winchester/Domitila/Maikelitting on: 0 06/15/2025 07:27 AM EDT
--- OUTSIDE RECORDS SUMMARY | 2025-06-15 07:27 | XMS_ITS | Clinical Summary ---
Author Organization [facility] Address [address] [place] [address] Phone [email or web address] Care Team Providers Care Speech And Language Tutor Name Role Phone Duke Ramsey MD Primary Care Provider [phone] Allergies Active Allergy Reactions Criticality Noted Date [...] REPEAT CYCLE 02/06/2021 Active D3-50 1.25 MG (34222 UT) capsule Take 50,000 Units by mouth [...] of 3 - 19+ 3-dose series) 1988 Pneumococcal Immunization (1 of 2 - PCV) 1988 Breast Cancer Screening 1999 Zoster Immunization (1 of 2) 2019 Annual Preventive Exam 10/16/2019 10/16/2018 Covid-19 Immunization (1 - 2 024-25 season) 2025 Influenza Immunization (#1) 2025 Tetanus [...] patient's age to complete this topic Insurance [facility] [place] [address] [id number] [place] [address] Care Teams Speech And Language Tutor Relationship Specialty Start Date End Date Duke Ramsey MD [address] [place] [address] [place] [id number] PCP - General Analyst Programmer 07/28/19
--- OUTSIDE RECORDS SUMMARY | 2025-06-15 07:27 | XMS_ITS | Clinical Summary ---
Author Organization [facility] Address [address] [place] [address] Care Team Providers Care Client Service Coordinator Name Role Phone Unavailable Primary Care Provider [...] 2019 ZOSTER VACCINE (1 of 2) 2019 INFLUENZA VACCINE 04/23/2025
--- OUTSIDE RECORDS SUMMARY | 2025-06-15 07:27 | XMS_ITS | Clinical Summary ---
Author Organization [facility] Address [address] [place] [address] Care Team Providers Care Scaffolder Name Role Phone JonyMarce Courtney XAVIER Primary [...] drink first t juliane in the morning (EYE-CASE MONITOR) to steady your nerves or to get [...] of 2) 2019 UKY-Depression Screening 12/30/2024 12/31/2023 [id number]-16 Vaccine (4 - season) 2025 07/14/2021, 06/16/2021, [...] this topic Medical Devices Implanted Type Area Stove Installer Device Identifier Shelf Expiration Date Model / Serial / Lot Shell Trident Ii Cluster 46mm - [id number] Implanted:Qty: 1 on 07/31/2023 by Sergio Rose MD at [facility] Hip Right: Hip [employer] ([facility])-1391 68 05/02/2028 [id number] / / [id number] Liner Mdm Cocr 36mm C - [id number] Implanted:Qty: 1 on 07/31/2023 by Sergio Rose MD at [facility] Hip Right: Hip [employer] ([facility])-1391 68 02/27/2028 [id number] / / [id number] Insert X3 Mdm Restor 36 Mm Od 22 Mm Id X 6.7 Mm - [id number] Implanted:Qty: 1 on 07/31/2023 by Sergio Rose MD at [facility] Hip Right: Hip [facility] [facility]1391 68 09/05/2027 [id number] / / [id number] Hip Size 4 Accolade Ii 132 Deg - [id number] Implanted:Qty: 1 on 07/31/2023 by Sergio Rose MD at [facility] Hip Right: Hip [facility] [facility]1391 68 06/14/2028 [id number] / / [id number] Chg Head 22.2mm Std Lfit V40 - [id number] Implanted:Qty: 1 on 07/31/2023 by Sergio Rose MD at [facility] Hip Right: Hip [facility] [facility] ([facility])-1391 68 06/02/2028 6260-9-122 / / [id number] Screw 6.5mm Trident Low Profile Hex 25mm - [id number] Implanted:Qty: 1 on 07/31/2023 by Sergio Rose MD at [facility] Screw Right: Hip [facility] ([facility]1391 68 05/01/2028 [id number] / / [id number] Insurance [facility] [place] [address] [place] Advance Directives * Full Code (Latest Code Status on File) Date Activated Date Inactivated Comments 07/31/2023 7:53 AM 08/01/2023 6:25 PM Question Answer Comments Patient has decision-making capacity? Yes Care Teams Scaffolder Relationship Specialty Start Date End Date Marce Borges APRN [address] [place] [address] PCP - General 05/02/23
--- OUTSIDE RECORDS SUMMARY | 2025-06-15 07:27 | XMS_ITS | Patient Health Record ---
Author Organization [facility] Address [address] [place] [address] Care Team Providers Care Hvac Engineering Technician Name Role Phone Marce Borges Primary Care Provider UnavailPrema Alvarenga Unavailable unknown, Unknown Unavailable Unavailable Chaitanya Brown Unavailable [phone] Allergies Allergen (clinical drug ingredient) Drug/Non Drug [...] Status W/U Status Risk Notes Problem Osteoporosis (71868544) Osteoporosis (M81.0) Active confirmed Problem Anxiety state (997783318) Anxiety state (F41.1) Active confirmed Problem Essential hypertension (24785649) Essential hypertension (I10) Active confirmed Problem Chronic fatigue syndrome (08342495) Chronic fatigue (R53.82) Active confirmed Problem Disorder of endocrine system (426432273) Hormone imbalance (E34.9) Active confirmed *Reviewed and discussed the patient's labs with her. The formal documents have not all yet been received by [facility], however the patient does present with [...] 03/19/2025 Encounters Encounter Location Date Provider Diagnosis [facility] [address] [place] [address] 03/19/2025 Chaitanya Brown Chronic fatigue R53.82 and Hormone imbalance E34.9 [facility] [address] [place] [address] 04/19/2025 Chaitanya Brown Chronic fatigue R53.82 and Hormone imbalance E34.9 [facility] [address] [place] [address] 04/30/2025 Chaitanya [place] [address] [place] [address] 03/19/2025 Chaitanya [place] [address] [place] [address] 04/30/2025 Chaitanya [place] [place] [address] 05/31/2025 Prema Lara Chronic fatigue R53.82 Assessments Encounter Date Diagnosis (ICD Code) Assessment Notes Treatment Notes Treatment Clinical Notes Section Notes 05/31/2025 Chronic fatigue (ICD-10 - R53.82) 04/19/2025 Chronic fatigue (ICD-10 - R53.82) 04/19/2025 Hormone imbalance (ICD-10 - E34.9) *Reviewed and discussed the patient's labs with her. The formal documents have not all yet been received by [facility], however the patient does present with [...] strain on her marriage with libido changes. 03/19/2025 Chronic fatigue (ICD-10 - R53.82) 03/19/2025 Hormone imbalance (ICD-10 - E34.9) *[facility] in [place], last lab work completed 02/16/25. Will request these, once these are received I want to cross reference with our pre-RT female panel so we aren't doubling down on what was already completed. Patient requested that any additional labs be sent to [facility] to complete. Once we've received those we will plan for moving forward with pellets, Jackie spoke with her regarding pricing for the pellets and DIM supplement. *Discuss the patients reported drinking habits noting she has drank as much as is listed for most of her adult life, denies role played in strain on her marriage with libido changes. Plan Of Treatment Pending Test Test Name Order Date Albumin 05/31/2025 Prolactin 03/19/2025 TIBC ( Total Iron Binding Capacity) 02/22 TIBC ( Total Iron Binding Capacity) 04/2025 Ferritin 03/19/2025 DHEA-S 03/19/2025 Iron 03/19/2025 Iron 05/31/2025 Human Chorionic Gonadotropin (HCG) Serum 03/19/2025 homocysteine 03/19/2025 homocysteine 05/31/2025 homocysteine 03/19/2025 CBC with Differential 03/19/2025 THYROID PANEL, FREE T3 05/31/2025 THYROID PANEL, FREE T3 03/19/2025 THYROID PANEL, FREE T4 03/19/2025 THYROID PANEL, FREE T4 05/31/2025 CMP 03/19/2025 Hemoglobin A1c w Est Avg/Mean [...] 05/31/2025 TSH 03/19/2025 SEX HORMONE BINDING GLOBULIN 05/31/2025 SEX HORMONE BINDING GLOBULIN 03/19/2025 1, 25 OH vitamin D 05/31/2025 1, 25 OH vitamin D 03/19/2025 Cortisol, Total 03/19/2025 Insurance Providers Payer Name Payer Address Payer Phone Subscriber Number Group Number Insured Name Patient Relationship to Insured Coverage Start Date Coverage End Date [place] [address] [address] [phone] [id number] Karen Csataneda Self - patient is the insured [facility] [address] [place] [address] [id number] Karen Castaneda Self - patient is the insured Medical (General) History Medical History History ICD Code Osteoporosis M81.0 Essential hypertension I10 Anxiety state F41.1 Surgical History Surgery Date(Month/Year) Hysterectomy 2002 Breast augmentation x 3 1996 Hip Replacement- Right 2023 Cyst Removal- R thumb Exploratory Surgery- Uterus 2000 Hospitalization History Reason Date(Month/Year) Hypertension Episode 2008
--- NOTE | 2025-06-15 07:30 | CT_ITS ---
FINAL REPORT TECHNIQUE: Thin section axial images were obtained through the lungs using a low-dose technique per lung cancer screening protocol. Reconstruction images were obtained using the axial data. Exam was performed using dose reduction technique. CLINICAL HISTORY: lung cancer screening current smoker 1ppd x38 years COMPARISON: 12/26/2023 FINDINGS: CTDLvol: 2.90 DLP: 97.42 Current smoker 38 pack year history Lungs: No acute pulmonary abnormality. No suspicious nodules. Lymph nodes: No thoracic lymphadenopathy. Mediastinum: Heart size is normal. Pleura/pericardium: No pleural or pericardial effusion. Other: No acute abnormality in the upper abdomen. The ascending aorta measures 40 mm which is slightly increased from prior exam. There are prominent coronary artery calcifications. IMPRESSION: No suspicious pulmonary nodule or mass. Prominent coronary artery calcifications. Lung RADS: 1S Recommendation: Recommend 1 year follow-up. Reviewed, Interpreted and Dictated by America Box MD Transcribed by Uma Foster Authenticated and [facility]
--- NOTE | 2025-06-15 13:00 | MM_ITS ---
PROCEDURE INFORMATION: Exam: MG Bilateral Screening 3D Mammography Exam date and time: 06/15/2025 1:08 PM Age: 55 years old Clinical indication: Screening examination TECHNIQUE: Imaging protocol: Bilateral Screening tomosynthesis and 2D mammography including computer-aided detection (CAD) when performed. COMPARISON: 1. MG MM DIG SC MAMM IMPLANT BI CAD 09/18/2023 1:20 PM 2. MG MM DIG SC MAMM IMPLANT BI CAD 09/07/2022 1:17 PM FINDINGS: MAMMOGRAPHY: Breast composition: There are scattered areas of fibroglandular density. Mass: None. Architectural distortion: None. Calcifications: No suspicious calcifications. Asymmetric density: None. Skin thickening: None. Axillary adenopathy: None. Implants: Calcified prepectoral bilateral silicone implants that are unchanged. IMPRESSION: No mammographic evidence of malignancy. Annual screening is recommended unless otherwise clinically indicated. ASSESSMENT: BI-RADS Category 1: Negative.
== END 2025-06-15 23:59 | disposition home or self-care (01) ==
LOC: RAD 07:26
PROVIDERS: PCP Nurse Practitioner Family; Visit Provider Nurse Practitioner Family
DX: Z12.31 Encounter for screening mammogram for malignant neoplasm of breast (principal); R92.323 Mammographic fibroglandular density, bilateral breasts; Z98.82 Breast implant status; Z12.2 Encounter for screening for malignant neoplasm of respiratory organs; F17.210 Nicotine dependence, cigarettes, uncomplicated; I25.10 Atherosclerotic heart disease of native coronary artery without angina pectoris
CPT/HCPCS: 71271; 77063; 77067

== ENCOUNTER 2025-06-21 10:59 | Outpatient (CLI) | payer MEDICARE, BC, SELFPAY ==
[2025-06-21 11:05] LABS: Adenovirus F 40/41, stool Not Detected (NotDetected); Clostridium Difficile A/B, PCR Not Detected (NotDetected); Cyclospora Cayetanesis Not Detected (NotDetected); Plesimonas Shigalloides, PCR Not Detected (NotDetected); Salmonella, PCR Not Detected (NotDetected); Shiga-like toxin E coli Not Detected (NotDetected); Shigella Enterovasive E coli Not Detected (NotDetected); Vibrio, PCR Not Detected (NotDetected); Yersinia Entercolitica, PCR Not Detected (NotDetected)
--- OUTSIDE RECORDS SUMMARY | 2025-06-21 11:07 | XMS_ITS | Clinical Summary ---
Author Organization [facility] Address [address] [place] [address] Phone [email or web address] Care Team Providers Care Training And Development Director Name Role Phone Duke Ramsey MD Primary Care Provider Allergies Active Allergy Reactions [...] REPEAT CYCLE 02/06/2021 Active D3-50 1.25 MG (15392 UT) capsule Take 50,000 Units by mouth [...] 3 - 19+ 3-dose series) 1988 Pneumococcal: 50+ Years (1 o f 2 - PCV) 1988 Breast Cancer Screening 1999 Zoster Immunization (1 of 2) 2019 Annual Preventive Exam 10/16/2019 10/16/2018 Covid-19 Immunization (1 - 2 -25 season) 2025 Influenza Immunization (#1) 2025 Tetanus [...] patient's age to complete this topic Insurance [facility] [place] [facility] [id number] [place] [address] Care Teams Training And Development Director Relationship Specialty Start Date End Date Duke Ramsey MD [address] [place] [address] [address] [place] [address] PCP - General Hr Associate 07/28/19
--- OUTSIDE RECORDS SUMMARY | 2025-06-21 11:07 | XMS_ITS | Clinical Summary ---
Author Organization [facility] Address [address] [place] [address] Care Team Providers Care Devops Architect Name Role Phone Unavailable Primary Care Provider [...]
--- OUTSIDE RECORDS SUMMARY | 2025-06-21 11:07 | XMS_ITS | Clinical Summary ---
Author Organization [facility] Address [address] [place] [address] Care Team Providers Care Manager Drug Name Role Phone JonyMarce Courtney XAVIER Primary Care Provider [phone] Allergies Active Allergy Reactions Criticality Noted Date [...] drink first t juliane in the morning (EYE-PROGRAMMING SPECIALIST) to steady your nerves or to get [...] of 2) 2019 UKY-Depression Screening 12/30/2024 12/31/2023 [id number]-02 Vaccine (4 - season) 2025 07/14/2021, 06/16/2021, [...] this topic Medical Devices Implanted Type Area Pipe Coverer Helper Device Identifier Shelf Expiration Date Model / Serial / Lot Shell Trident Ii Cluster 46mm - [id number] Implanted:Qty: 1 on 07/31/2023 by Sergio Rose MD at [facility] Hip Right: Hip [employer] ([facility])-1391 68 05/02/2028 [id number] / / [id number] Liner Mdm Cocr 36mm C - [id number] Implanted:Qty: 1 on 07/31/2023 by Sergio Rose MD at [facility] Hip Right: Hip [employer] [facility] ([facility])-1391 68 02/27/2028 626-00-36C / / [id number] Insert X3 Mdm Restor 36 Mm Od 22 Mm Id X 6.7 Mm - [id number] Implanted:Qty: 1 on 07/31/2023 by Sergio Rose MD at [facility] Hip Right: Hip [facility] ([facility]1391 68 09/05/2027 7236-2-242 / / [id number] Hip Size 4 Accolade Ii 132 Deg - [id number] Implanted:Qty: 1 on 07/31/2023 by Sergio Rose MD at [facility] Hip Right: Hip [facility] ([facility]1391 68 06/14/2028 [id number] / / [id number] Chg Head 22.2mm Std Lfit V40 - [id number] Implanted:Qty: 1 on 07/31/2023 by Sergio Rose MD at [facility] Hip Right: Hip [employer] [facility] ([facility])-1391 68 06/02/2028 6260-9-122 / / [id number] Screw 6.5mm Trident Low Profile Hex 25mm - [id number] Implanted:Qty: 1 on 07/31/2023 by Sergio Rose MD at [facility] Screw Right: Hip [facility] [facility] ([facility]1391 68 05/01/2028 [id number] / / [id number] Insurance [facility] [place] [address] [place] Advance Directives * Full Code (Latest Code Status on File) Date Activated Date Inactivated Comments 07/31/2023 7:53 AM 08/01/2023 6:25 PM Question Answer Comments Patient has decision-making capacity? Yes Care Teams Manager Drug Relationship Specialty Start Date End Date Marce Borges APRN [address] [place] [address] PCP - General 05/02/23
== END 2025-06-21 23:59 | disposition home or self-care (01) ==
LOC: LAB 11:01
PROVIDERS: PCP Nurse Practitioner Family; Visit Provider Nurse Practitioner Family
DX: D81.89 Other combined immunodeficiencies (principal); K52.9 Noninfective gastroenteritis and colitis, unspecified
CPT/HCPCS: 87045; 87507

== ENCOUNTER 2025-07-20 10:55 | Outpatient (CLI) | payer MEDICARE, BC, SELFPAY ==
--- OUTSIDE RECORDS SUMMARY | 2025-05-03 05:00 | XMS_ITS ---
Author Organization [facility] Address [address] [place] [address] Care Team Providers Care Transfer Table Operator Helper Name Role Phone Marce Borges Primary Care Provider UnavailPrema Alvarenga Unavailable unknown, Unknown Unavailable Unavailable Chaitanya Brown Unavailable [phone] REASON FOR VISIT reminder to stop current [...] ve Encounters Encounter Location Date Provider Diagnosis [facility] [address] [place] [address] 05/03/2025 Chaitanya Brown Plan Of Treatment Next Appt Details Provider Name:Chaitanya Brown , 08/02/2025 11:20:00 AM, [address], [place], [address], Progress Notes * Karen CASTANEDA LDOB:1969 (55 yo F)Acc No.[id number]:05/03/2025 Patient: Karen Florian Provider: Cain Brown PA-C :1970 A ge:54 Y S ex:Female Date:05/03/2025 Address:[address] [place] [address], [place], [id number] Pcp:Marce Borges Subjective: * Chief Complaints: * [...] Electronic signature of TONO Alcantar PA-C on 07/21/2025 at 12:23 PM EDT Sign off status: Pending * Provider: Cain Brown PA-C Date: 0 05/03/2025 Generated for Terry winchester/Domitila/Kelsie on: 1 12:23 PM EDT
--- OUTSIDE RECORDS SUMMARY | 2025-05-31 02:39 | XMS_ITS ---
Author Organization [facility] Address [address] [place] [address] Care Team Providers Care Used Building Materials Yard Worker Name Role Phone Marce Borges Primary Care Provider Prema Mcdaniel Unavailable [phone] unknown, Unknown Unavailable Unavailable REASON FOR VISIT Labs Encounters Encounter Location Date [facility] [address] [place] [address] 05/31/2025 Prema Lara Chronic fatigue R53.82 Assessments Encounter Date Diagnosis (ICD Code) Assessment Notes Treatment Notes Treatment Clinical Notes Section Notes 05/31/2025 Chronic fatigue (ICD-10 - R53.82) Plan Of Treatment Pending Test Test Name Order Date Albumin 05/31/2025 TIBC ( Total Iron Binding Capacity) /04/2025 Iron 05/31/2025 homocysteine 05/31/2025 THYROID PANEL, FREE T3 05/31/2025 THYROID PANEL, FREE T4 05/31/2025 Estradiol 05/31/2025 Testosterone, Total 05/31/2025 Thyroid Peroxidase (TPO) Ab 05/31/2025 17-Hydroxyprogesterone 05/31/2025 HS CRP 05/31/2025 PROGESTERONE 05/31/2025 VITAMIN B12 05/31/2025 FSH 05/31/2025 LH 05/31/2025 TSH 05/31/2025 SEX HORMONE BINDING GLOBULIN 05/31/2025 1, 25 [place] vitamin D 05/31/2025 Next Appt Details Provider Name:Chaitanya Brown , 08/02/2025 11:20:00 AM, [address], [place], [address], Progress Notes * Karen CASTANEDA LDOB:1969 (55 yo F)Acc No.[id number]:05/31/2025 Patient: Karen REESE :1970 A ge:55 Y S ex:Female Address:[address] [place] [address], [place], [address] Subjective: * Chief Complaints: * L abs Assessment: * Assessment: 1. C hronic fatigue - R53.82 (Primary) Plan: * Treatment: * true * Date: Generated for Terry winchester/Domitila/Tatysmitting on: 12:23 PM EDT
--- OUTSIDE RECORDS SUMMARY | 2025-07-21 12:23 | XMS_ITS | Clinical Summary ---
Author Organization [facility] Address [address] [place] [address] Care Team Providers Care Computational Linguist Name Role Phone JonyMrace Courtney XAVIER Primary Care Provider Allergies Active [...] drink first t juliane in the morning (EYE-LENS GENERATOR) to steady your nerves or to get [...] of 2) 2019 UKY-Depression Screening 12/30/2024 12/31/2023 [id number]-97 Vaccine (4 - season) 2025 07/14/2021, 06/16/2021, [...] this topic Medical Devices Implanted Type Area Office Manager Receptionist Device Identifier Shelf Expiration Date Model / Serial / Lot Shell Trident Ii Cluster 46mm - [id number] Implanted:Qty: 1 on 07/31/2023 by Sergio Rose MD at [facility] Hip Right: Hip [employer] [facility] ([facility])-1391 68 05/02/2028 [id number] / / [id number] Liner Mdm Cocr 36mm C - [id number] Implanted:Qty: 1 on 07/31/2023 by Sergio Rose MD at [facility] Hip Right: Hip [facility] [facility] ([facility])-1391 68 02/27/2028 626-00-36C / / [id number] Insert X3 Mdm Restor 36 Mm Od 22 Mm Id X 6.7 Mm - [id number] Implanted:Qty: 1 on 07/31/2023 by Sergio Rose MD at [facility] Hip Right: Hip [facility] ([facility]1391 68 09/05/2027 7236-2-242 / / [id number] Hip Size 4 Accolade Ii 132 Deg - [id number] Implanted:Qty: 1 on 07/31/2023 by Sergio Rose MD at [facility] Hip Right: Hip [facility] ([facility]1391 68 06/14/2028 [id number] / / [id number] Chg Head 22.2mm Std Lfit V40 - [id number] Implanted:Qty: 1 on 07/31/2023 by Sergio Rose MD at [facility] Hip Right: Hip [facility] [facility] ([facility])-1391 68 06/02/2028 6260-9-122 / / [id number] Screw 6.5mm Trident Low Profile Hex 25mm - [id number] Implanted:Qty: 1 on 07/31/2023 by Sergio Rose MD at [facility] Screw Right: Hip [facility] ([facility]1391 68 05/01/2028 [id number] / / [id number] Insurance [facility] [place] [address] [place] Advance Directives * Full Code (Latest Code Status on File) Date Activated Date Inactivated Comments 07/31/2023 7:53 AM 08/01/2023 6:25 PM Question Answer Comments Patient has decision-making capacity? Yes Care Teams Computational Linguist Relationship Specialty Start Date End Date Marce Borges APRN [address] [place] [address] PCP - General 05/02/23
--- OUTSIDE RECORDS SUMMARY | 2025-07-21 12:24 | XMS_ITS | Clinical Summary ---
Author Organization [facility] Address [address] [place] [address] Care Team Providers Care Pet Adoption Counselor Name Role Phone Unavailable Primary Care Provider [...]
--- OUTSIDE RECORDS SUMMARY | 2025-07-21 12:24 | XMS_ITS | Data Portability ---
Author Organization [facility] SHELLEY Hardy WAYNE CLOSED Address [address] [place] [address] Care Team Providers Care Asset Protection Manager Name Role Phone LANDON SEYMOUR Referring Provider [...] Address Organization Details Recorded Time Other completed [facility] 07/28/2019 08:49:57 Other completed [facility] 07/28/2019 08:50:08 Orthopedic Surgery completed [facility] 07/28/2019 08:50:20 Other completed [facility] 07/28/2019 08:50:33 Imaging Results None recorded. Procedure Notes None recorded. Medical Equipment None Reported. Allergies Allergen ID Allergen Name Allergen Category Reaction Reaction Severity Criticality Documentation Date Start Date Code Code System Note Provider Name and Address Organization Details Recorded Time 016811 Substance with sulfonami de structure and antibacte rial mechanism of action (substanc e) medicatio n hives Not available Not available 07/28/2019 02588 8003 SNOMED [facility] 9 08:47:54 Medications Name Sig Start Date [...] Body mass index (BMI) Body weight Systolic And Diastolic Provider Name and Address Organization Details Last Updated DateTime 07/28/2019 160.02 cm 28.3 kg/m2 90595.78 g 128/88 mm[Hg] [facility] 07/28/2019 08:47:39 Social History Question Answer Notes LastModified by Organizat ion Details LastModified Time Tobacco Smoking Status Never Smoker [facility] 07/28/2019 08:48:58 What Is Your Level Of Caffeine Consumption? Moderate [email or web address] Information not available 07/28/2019 Which Of Your Hands Is Dominant? Right Information not available 07/28/2019 Sex: Unknown Functional Status Question Answer Note LastModified by Organizat ion Details LastModified Time Do you use any illicit or recreational drugs? No [email or web address] Information not available 07/28/2019 What is your level of alcohol consumption? Moderate [email or web address] Information not available 07/28/2019 Are you currently employed? Yes [email or web address] Information not available 07/28/2019 What is your occupation? [employer] [employer] [email or web address] Information not available 07/28/2019 Do you or have you ever used e-cigarettes or vape? Current user of electronic cigarettes [email or web address] Information not available 07/28/2019 Mental Status None [...] N Immune System Disorder N Heart Attack (RI) N Mental Illness N Neurological Problems N Diabetes N Seizures/Epilepsy N Sleep Apnea N Hypertension Y Osteoporosis N Gynecological HistoryNo gynecological history recorded. Obstetrics History GPAL:G 0 P 0 0 0 0 Past Encounters Encounter ID Performer Location Encounter Start Date Encounter Closed Date Diagnosis/Indication Diagnosis SNOMED-CT Code Diagnosis ICD10 Code Diagnosis IMO Codes Diagnosis Note [id number] KWABENA GOLDEN PA-C [facility] [address] [place] [address] 07/28/2019 08:36:50 08/03/2019 15:57:47 Digital mucous cyst 783044867 M71.342 DOI: 04/14/19 XRs of the left [...] ID Crisostomo Member ID Guarantor Name 07/28/2019 [facility] Rae Powellblu Castaneda Notes Date Note Type Note Provider Name and Address Organization Details Recorded Time 07/28/2019 text/html Hand SurgeryRepo rted by PatientHPIFor hand dominance, patient reportsright. For location, patient reportsleft(index finger). For severity, patient reportspain level 0/10. For duration, patient reportsdate of injury: 04/14/2019. For previous surgery, patient reportsnone. For work related, patient reportsyes. For working, patient reportsregular duty([facility] 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 Landon Seymour. She states she sustained a laceration to the tip of her left index finger at work on 04/14/19. She was treated by [facility] medical providers and her laceration healed [...] denies signs of infection. KWABENA GOLDEN PA-C [address] [place], [address], [facility] 07/29/2019 08:29:37 OBGyn Episode No OBEpisode recorded.
--- OUTSIDE RECORDS SUMMARY | 2025-07-21 12:24 | XMS_ITS | Patient Health Record ---
Author Organization [facility] Address [address] [place] [place] [address] Care Team Providers Care Software Specialist Name Role Phone Marce Borges Primary Care Provider UnavailPrema Alvarenga Unavailable unknown, Unknown Unavailable Unavailable Chaitanya Brown Unavailable [phone] Allergies Allergen (clinical drug ingredient) Drug/Non Drug [...] Status W/U Status Risk Notes Problem Osteoporosis (88994149) Osteoporosis (M81.0) Active confirmed Problem Anxiety state (852189819) Anxiety state (F41.1) Active confirmed Problem Essential hypertension (61184829) Essential hypertension (I10) Active confirmed Problem Chronic fatigue syndrome (99482942) Chronic fatigue (R53.82) Active confirmed Problem Disorder of endocrine system (279294981) Hormone imbalance (E34.9) Active confirmed *Reviewed and discussed the patient's labs with her. The formal documents have not all yet been received by [facility], however the patient does present with [...] Encounters Encounter Location Date Provider Diagnosis Lawrence Ivis [address] [place] [address] 03/19/2025 Chaitanya Stephanie Chronic fatigue R53.82 and Hormone imbalance E34.9 [facility] [address] [place] [address] 04/19/2025 Chaitanya Brown Chronic fatigue R53.82 and Hormone imbalance E34.9 [facility] [address] [place] [address] 04/30/2025 [facility] Brown [facility] [address] [place] [address] 03/19/2025 Chaitanya [place] [place] [address] 04/30/2025 Chaitanya Stephanie [place] [address] [place] [address] 05/31/2025 Prema Lara Chronic fatigue R53.82 [facility] [address] [place] [address] 06/30/2025 Chaitanya Stephanie Assessments Encounter Date Diagnosis (ICD Code) Assessment Notes Treatment Notes Treatment Clinical Notes Section Notes 03/19/2025 Chronic fatigue (ICD-10 - R53.82) 03/19/2025 Hormone imbalance (ICD-10 - E34.9) *[facility] in [place], last lab work completed 02/16/25. Will request these, once these are received I want to cross reference with our pre-RT female panel so we aren't doubling down on what was already completed. Patient requested that any additional labs be sent to [facility] to complete. Once we've received those [...] have not all yet been received by [facility], however the patient does present with [...] 03/19/2025 Cortisol, Total 03/19/2025 Next Appt Details Provider Name:Chaitanya Oliverarose , 08/02/2025 11:20:00 AM, [address], [place], [address], Insurance Providers Payer Name Payer Address Payer Phone Subscriber Number Group Number Insured Name Patient Relationship to Insured Coverage Start Date Coverage End Date Medicare [place] [address] [phone] [id number] Karen Castaneda Self - patient is the insured [facility] [address] [place] [address] [id number] Karen Castaneda Self - patient is the insured Medical (General) History Medical History History ICD Code Osteoporosis M81.0 Essential hypertension I10 Anxiety state F41.1 Surgical History Surgery Date(Month/Year) Hysterectomy 2002 Breast augmentation x 3 1996 Hip Replacement- Right 2023 Cyst Removal- R thumb Exploratory Surgery- Uterus 2000 Hospitalization History Reason Date(Month/Year) Hypertension Episode 2008
[2025-07-21 13:12] LABS: Antinuclear Antibodies (ANA) Negative (Negative)
[2025-07-23 15:44] LABS: Lyme B. burgdorferi PCR Blood Negative (Negative)
[2025-07-24 02:09] LABS: O215-IgE Alpha-Gal < 0.10 kU/L (Class 0)
== END 2025-07-20 23:59 | disposition home or self-care (01) ==
LOC: LAB.DROPOF 07-21 12:21
PROVIDERS: PCP Nurse Practitioner Family; Visit Provider Nurse Practitioner Family
DX: T78.40XA Allergy, unspecified, initial encounter (principal); M25.50 Pain in unspecified joint; K52.9 Noninfective gastroenteritis and colitis, unspecified; W57.XXXA Bitten or stung by nonvenomous insect and other nonvenomous arthropods, initial encounter
CPT/HCPCS: 82785; 86003; 86008; 86038; 87476

== ENCOUNTER 2025-09-02 13:55 | Outpatient (CLI) | payer MEDICARE, BC, SELFPAY ==
[2025-09-02 14:16] LABS: Hematocrit 42.4 % (37.0-47.0); Hemoglobin 14.0 g/dL (12.2-16.2); Immature Granulocytes % 0.1 %; Mean Corpuscular HGB Conc 33.0 g/dL (31.8-35.4); Mean Corpuscular Hemoglobin 30.5 pg (27.0-31.2); Mean Corpuscular Volume 92.4 fl (81-99); Nucleated Red Blood Cells % 0 %; Platelet Count 348 K/mm3 (142-424); Red Blood Count 4.59 M/mm3 (4.20-5.40); Red Cell Distribution Width-SD 44.5 fL; White Blood Count 7.8 K/mm3 (4.8-10.8)
[2025-09-02 14:35] LABS: Albumin Level 4.8 g/dl (3.5-5.0); Chloride 102 mmol/L (98-107); Sodium 142 mmol/L (136-145)
[2025-09-02 14:36] LABS: Potassium 4.5 mmoL/L (3.5-5.1)
[2025-09-02 14:38] LABS: Alanine Aminotransferase 25 U/L (12-78); Alkaline Phosphatase 81 U/L (38-126); Anion Gap 16.5 mEq/L (5-15); Aspartate Amino Transferase 30 U/L (14-36); Bilirubin,Direct 0.0 mg/dl (0.0-0.4); Bilirubin,Indirect 0.6 mg/dL (0.0-0.9); Bilirubin,Total 0.6 mg/dl (0.2-1.3); Bilirubin,Unconjugated 0.6 mg/dL (0.0-1.1); Blood Urea Nitrogen 10 mg/dl (7-17); Calcium 10.0 mg/dl (8.4-10.2); Carbon Dioxide 28 mmol/L (22.0-30.0); Cholesterol 186 mg/dl (140-200); Creatine Kinase 69 U/L (30-135); Creatinine,Serum 1.00 mg/dl (0.52-1.04); Estimated Glomerular Filt Rate 57 ml/min (>60); GFR (African American) 69 ML/MIN (>60); Glucose 96 mg/dl (74-100); Total Protein,Serum 8.2 g/dl (6.3-8.2); Triglycerides 116 mg/dl (30-150)
[2025-09-02 14:39] LABS: HDL Cholesterol 67 mg/dl (40-60); Magnesium 2.2 mg/dl (1.6-2.3)
[2025-09-02 14:44] LABS: C-Reactive Protein 7.3 mg/L (0-4)
[2025-09-02 14:54] LABS: Free T4 (Free Thyroxine) 1.19 ng/dl (0.78-2.19)
[2025-09-02 15:09] LABS: Thyroid Stimulating Hormone 2.21 uIU/mL (0.465-4.68)
== END 2025-09-02 23:59 | disposition home or self-care (01) ==
LOC: LAB 13:56
PROVIDERS: PCP Nurse Practitioner Family; Visit Provider Internal Medicine
DX: I25.10 Atherosclerotic heart disease of native coronary artery without angina pectoris (principal); R94.31 Abnormal electrocardiogram [ECG] [EKG]; E78.5 Hyperlipidemia, unspecified; K21.9 Gastro-esophageal reflux disease without esophagitis; R74.8 Abnormal levels of other serum enzymes; Z82.49 Family history of ischemic heart disease and other diseases of the circulatory system
CPT/HCPCS: 36415; 80048; 80061; 80076; 82550; 83735; 84439; 84443; 85025; 85651; 86140; 86225; 86235